=== PATIENT | female | born 1935 | race Caucasian/White ===

== ENCOUNTER 2016-12-01 09:02 | Emergency (ER) | payer BC ==
--- NOTE | 2016-12-01 09:21 | Emergency Department Record ---
History of Present Illness - General Chief complaint: Hypogylcemia Stated complaint: LOW BLOOD SUGAR Time Seen by Provider: 12/01/16 09:15 Source: Patient, RN notes reviewed Mode of Arrival: EMS - History of Present Illness Initial comments: patient found by daughter in bed confused and EMS called and her blood glucose was 44 and one amp of D50 given and glucose up to 170 and she was given peanut butter and juice. Patient using lantus 40 units at night and metformin and her new primary is Dr. Mckay. Onset/Timin -: Hour(s) Location: Generalized Improves with: Medication Worsens with: None Associated Symptoms: Confusion - [place] Coma Scale Eye Response: (4) Open spontaneously Motor Response: (6) Obeys commands Verbal Response: (5) Oriented [place] Total: 15 - Related Data Home Medications Medication Instructions Recorded Confirmed Last Taken Atorvastatin Calcium [Lipitor] 10 mg PO QHS 12/01/16 12/01/16 11/30/16 Insulin Glargine,Hum.rec.anlog 10 unit SQ QAM 12/01/16 12/01/16 Unknown [Lantus] Insulin Glargine,Hum.rec.anlog 40 unit SQ QHS 12/01/16 12/01/16 11/30/16 [Lantus] Lisinopril 10 mg PO DAILY 12/01/16 12/01/16 11/30/16 Metformin HCl 1,000 mg PO BID 12/01/16 12/01/16 11/30/16 Oxybutynin Chloride [Ditropan Xl] 10 mg PO DAILY 12/01/16 12/01/16 11/30/16 Allergies Allergy/AdvReac Type Severity Reaction Status Date / Time aspirin AdvReac nose bleed Verified 12/01/16 09:15 Travel Screening - Travel/Exposure Within Last 30 Days Have you traveled within the last 30 days?: No Review of Systems Reviewed: No additional complaints except as noted below Constitutional: Reports: As per HPI. Denies: Chills, Fever, Malaise, Night sweats, Weakness, Weight change Eyes: Reports: As per HPI. Denies: Eye discharge, Eye pain, Photophobia, Vision change ENT: Reports: As per HPI. Denies: Congestion, Dental pain, Ear pain, Epistaxis , Hearing loss, Throat pain Respiratory: Reports: As per HPI. Denies: Cough, Dyspnea, Hemoptysis, Stridor, Wheezes Cardiovascular: Reports: As per HPI. Denies: Arrhythmia, Chest pain, Dyspnea on exertion, Edema, Murmurs, Orthopnea, Palpitations, Paroxysmal nocturnal dyspnea, Rheumatic Fever, Syncope Endocrine: Reports: As per HPI. Denies: Fatigue, Heat or cold intolerance, Polydipsia, Polyuria Gastrointestinal: Reports: As per HPI. Denies: Abdominal pain, Constipation, Diarrhea, Hematemesis, Hematochezia, Melena, Nausea, Vomiting Genitourinary: Reports: As per HPI. Denies: Abnormal menses, Discharge, Dyspareunia, Dysuria, Frequency, Hematuria, Incontinence, Retention, Urgency Musculoskeletal: Reports: As per HPI. Denies: Arthralgia, Back pain, Gout, Joint swelling, Myalgia, Neck pain Skin: Reports: As per HPI. Denies: Bruising, Change in color, Change in hair/ nails, Lesions, Pruritus, Rash Neurological: Reports: As per HPI. Denies: Abnormal gait, Confusion, Headache, Numbness, Paresthesias, Seizure, Tingling, Tremors, Vertigo, Weakness Psychiatric: Reports: As per HPI. Denies: Anxiety, Auditory hallucinations, Depression, Homicidal thoughts, Suicidal thoughts, Visual hallucinations Hematological/Lymphatic: Reports: As per HPI. Denies: Anemia, Blood Clots, Easy bleeding, Easy bruising, Swollen glands Past Medical History - SOCIAL HISTORY Smoking Status: Never smoker Alcohol Use: None Drug Use: None - RESPIRATORY Hx Respiratory Disorders: No - CARDIOVASCULAR Hx Cardio Disorders: Yes Hx Hypertension: Yes Comment:: high cholesterol - NEURO Hx Neuro Disorders: No - GI Hx GI Disorders: No - Hx Genitourinary Disorders: No - ENDOCRINE Hx Endocrine Disorders: Yes Hx Diabetes: Yes - MUSCULOSKELETAL Hx Musculoskeletal Disorders: No - PSYCH Hx Psych Problems: No - HEMATOLOGY/ONCOLOGY Hx Hematology/Oncology Disorders: No Family Medical History Any Significant Family History?: No Physical Exam - General General Appearance: Alert, Oriented x3, Cooperative, No acute distress - Head Head exam: Normal inspection - Eye Eye exam: Normal appearance, PERRL Pupils: Normal accommodation - ENT ENT exam: Normal exam, Mucous membranes moist, Normal external ear exam, Normal orophraynx, TM's normal bilaterally Ear exam: Normal external inspection. negative: External canal tenderness Nasal Exam: Normal inspection. negative: Discharge, Sinus tenderness Mouth exam: Normal external inspection, Tongue normal Teeth exam: Normal inspection. negative: Dental caries Throat exam: Normal inspection. negative: Tonsillar erythema, Tonsillar exudate - Neck Neck exam: Normal inspection, Full ROM. negative: Tenderness - Respiratory Respiratory exam: Normal lung sounds bilaterally. negative: Respiratory distress - Cardiovascular Cardiovascular Exam: Regular rate, Normal rhythm, Normal heart sounds - GI/Abdominal GI/Abdominal exam: Soft, Normal bowel sounds. negative: Tenderness - Rectal Rectal exam: Deferred - exam: Deferred - Extremities Extremities exam: Normal inspection, Full ROM, Normal capillary refill. negative: Tenderness - Back Back exam: Reports: Normal inspection, Full ROM. Denies: Muscle spasm, Rash noted, Tenderness - Neurological Neurological exam: Alert, Normal gait, Oriented X3, Reflexes normal - Psychiatric Psychiatric exam: Normal affect, Normal mood - Skin Skin exam: Dry, Intact, Normal color, Warm Course Vital Signs 12/01/16 09:04 Temperature 97.6 F Pulse Rate 77 Respiratory 20 Rate Blood Pressure 153/81 Pulse Ox 99 breakfast tray given to patient. Medical Decision Making - Data Complexity MDM Data: Labs Ordered and/or Reviewed - Lab Data Result diagrams: 12/01/16 09:22 12/01/16 10:05 Disposition Clinical Impression: Hypoglycemia associated with diabetes Condition: (1) Good Instructions: Diabetic Hypoglycemia (ED) Additional Instructions: decrease lantus to 20 units at night check glucose four times a day before meals and bedtime follow up with Dr. Mckay and show her your numbers Forms: Patient Portal Access Time of Disposition: 10:49
[2016-12-01 10:27] LABS: ANION GAP 15.1 (7-16); BLOOD UREA NITROGEN 18 mg/dL (7-17); CARBON DIOXIDE 21.9 mmol/L (22-30); CREATININE 0.8 mg/dL (0.52-1.04); EST GLOMERULAR FILTRATION RATE > 60 ml/min; GLUCOSE,RANDOM 154 mg/dL (70-110)
== END 2016-12-01 11:08 | disposition home or self-care (01) ==
LOC: ER 09:02
DX: E11.649 Type 2 diabetes mellitus with hypoglycemia without coma (principal); R41.0 Disorientation, unspecified; I10 Essential (primary) hypertension; Z79.4 Long term (current) use of insulin
CPT/HCPCS: 36416; 80048; 82948; 99283

== ENCOUNTER 2018-08-05 20:51 | Inpatient (IN) | payer BC ==
--- NOTE | 2018-08-05 21:03 | Emergency Department Record ---
History of Present Illness - General Chief Complaint: Fall Injury Stated Complaint: FALL Time Seen by Provider: 08/05/18 20:56 Source: Patient, Family Mode of Arrival: Ambulatory Limitations: No limitations - History of Present Illness Initial Comments: 82 yo female presents after a fall about three hours ago. She lives with her daughter. The daughter witnessed the fall. The patient was getting up out of a chair and twisted her feet. She fell onto her right forearm. She has skin tears with bleeding. She is on Plavix and aspirin. She denies hitting her head. Her daughter witness the fall and states she did not hit her head. No recent changes in her baseline health. Her baseline is that she is somewhat frail and requires her daughter to participate in her care. 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 No new confusion, weakness, vomiting, chest pain or shortness of breath. PCP is [facility]. 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 Fall Witnessed: Yes, by family Place Fall Occurred: Home Loss of Consciousness: None Prolonged Down Time?: No Symptoms Prior to Fall: None Location - Extremities: Right: Forearm Severity: Moderate Quality: Aching Context: Other Associated Symptoms: Denies - [place] Coma Scale Eye Response: (4) Open spontaneously Motor Response: (6) Obeys commands Verbal Response: (5) Oriented [place] Total: 15 - Related Data Home Medications Medication Instructions Recorded Confirmed Last Taken Aspirin [Aspir-Low] 81 mg PO DAILY 08/05/18 08/05/18 Unknown Allergies Allergy/AdvReac Type Severity Reaction Status Date / Time aspirin AdvReac nose bleed Verified 08/05/18 21:39 Review of Systems Constitutional: Denies: Chills, Fever, Weakness Eyes: Denies: Eye discharge ENT: Denies: Congestion, Throat pain Respiratory: Denies: Cough, Dyspnea Cardiovascular: Denies: Chest pain, Syncope Endocrine: Denies: Fatigue Gastrointestinal: Denies: Abdominal pain, Diarrhea, Nausea, Vomiting Genitourinary: Denies: Dysuria Musculoskeletal: Reports: Myalgia. Denies: Arthralgia, Back pain Skin: Reports: Bruising Neurological: Denies: Abnormal gait, Headache, Numbness, Tingling, Tremors, Weakness Psychiatric: Denies: Anxiety Hematological/Lymphatic: Reports: Easy bruising. Denies: Easy bleeding Past Medical History - SOCIAL HISTORY Smoking Status: Never smoker Drug Use: None - RESPIRATORY Hx Respiratory Disorders: No - CARDIOVASCULAR Hx Cardio Disorders: Yes Hx Hypertension: Yes Comment:: high cholesterol - NEURO Hx Neuro Disorders: No - GI Hx GI Disorders: No - Hx Genitourinary Disorders: No - ENDOCRINE Hx Endocrine Disorders: Yes Hx Diabetes: Yes - MUSCULOSKELETAL Hx Musculoskeletal Disorders: No - PSYCH Hx Psych Problems: No - HEMATOLOGY/ONCOLOGY Hx Hematology/Oncology Disorders: No Physical Exam - General General Appearance: Alert, Oriented x3, Cooperative, No acute distress Limitations: No limitations - Head Head exam: negative: Atraumatic (scattered bruising of varied appearing age. No lacerations. No areas of clearly new injury vs old vs subacute.) Head exam detail: Other - Eye Eye exam: Normal appearance, PERRL. negative: Scleral icterus - ENT ENT exam: Normal exam, Mucous membranes moist, Normal orophraynx Ear exam: Normal external inspection Nasal Exam: Normal inspection Mouth exam: Normal external inspection - Neck Neck exam: Normal inspection, Full ROM. negative: Tenderness - Respiratory Respiratory exam: Normal lung sounds bilaterally. negative: Respiratory distress - Cardiovascular Cardiovascular Exam: Regular rate, Normal rhythm, Normal heart sounds Peripheral Pulses: 2+: Radial (R), Radial (L) - GI/Abdominal GI/Abdominal exam: Soft. negative: Tenderness - Rectal Rectal exam: Deferred - exam: Deferred - Extremities Extremities exam: Full ROM, Joint swelling, Normal capillary refill, Tenderness. negative: Normal inspection Image of Full Body: 1 - lenear skin tear, superficial, local swelling, old scattered bruising - Back Back exam: Denies: CVA tenderness (R), CVA tenderness (L) - Neurological Neurological exam: Alert. negative: Altered - Psychiatric Psychiatric exam: negative: Agitated, Anxious - Skin Skin exam: Abrasion, Other (skin tear) Course Vital Signs 08/05/18 20:55 Temperature 97.6 F Pulse Rate [ 100 H Pulse Ox Probe] Respiratory 24 Rate Blood Pressure 135/77 [Left Arm] Pulse Ox 100 - Reevaluation(s) Reevaluation #1: Vitals reviewed Given she is on Plavix Trauma Alert initiated The fall was witnessed. The daughter states no head involvement. Given she has scattered bruising of varied age a HCT was ordered. 08/05/18 21:03 The labs were reviewed The CBC demonstrates a Hgb of 8.0 with prior of 9.5 in January Her BUN and CR were 49 and 1.2 mildly increased from prior. 08/05/18 21:48 08/05/18 22:07 The wound on the arm was cleaned and dried The skin tear was re-approximated with steristrips The proximal skin tear was treated with a non stick dressing. 08/05/18 22:29 No acute bone injury on the right forearm XR HCT no acute injury or bleed. Atrophy and small lacunar infarcts noted CT Cervical spine. No fracture. Degenerative changes noted. On stablehand asymmetry of the lung on the right. Recommend CXR CXR ordered The patient and daughter notified. 08/05/18 23:00 The CXR was read as possible pneumonia on the right with diffuse infiltrate. Plan will be for admission, IVF antibiotics. 08/05/18 23:01 The chest is non tender, no signs of trauma EKG 2256 sinus tachycardia [address] normal [place] normal No acute ST changes 08/05/18 23:05 At the time of admission she is 100% on room air, she is not short of breath. I explained that she will be given antibiotics, recheck her Hgb in the AM and monitor. 08/05/18 23:11 The patient now states she has felt congested a few days. The daughter has not noticed any significant cough or shortness of breath. Medical Decision Making - Lab Data Result diagrams: 08/06/18 06:10 08/06/18 06:10 Disposition Disposition: Admit Clinical Impression: Renal insufficiency, Hyperglycemia, Pneumonia Anemia Qualifiers: Anemia type: unspecified type Qualified Code(s): D64.9 - Anemia, unspecified Disposition: Still a Patient at [facility] Decision to Admit: Admit from ER Decision to Admit Date: 08/05/18 Decision to Admit Time: 23:02 Condition: (2) Stable Time of Disposition: 23:02 Quality - Quality Measures Quality Measures: N/A - Blood Pressure Screening Does Patient Have Any of the Following: Active Dx of HTN Blood Pressure Classification: Normal BP Reading Systolic Measurement: 118 Diastolic Measurement: 55 Screening for High Blood Pressure: Patient Exclusion, Hx of HTN [[id number]]
[2018-08-05 21:16] LABS: HEMATOCRIT 26.4 % (35.0-47.0); MEAN CELL VOLUME 99.2 fl (81-97); MEAN CORPUSCULAR HGB CONC 30.3 g/dl (32-36); MEAN PLATELET VOLUME 9.8 fl (7.4-10.4); PLATELET COUNT 303 K/uL (130-400); RED BLOOD COUNT 2.66 M/uL (3.80-5.40); RED CELL DISTRIBUTION WIDTH 14.3 % (11.5-14.5); WHITE BLOOD COUNT W/O DIFF 7.6 K/uL (4.2-12.2)
[2018-08-05 21:28] LABS: BILIRUBIN,TOTAL 0.3 mg/dL (0.2-1.0); CREATININE 1.2 mg/dL (0.5-0.9)
[2018-08-05 21:29] LABS: TOTAL PROTEIN 7.9 g/dL (6.6-8.7)
[2018-08-05 21:30] LABS: INR 1.1; PARTIAL THROMBOPLASTIN TIME 26.9 SECONDS (24.5-39.1); PROTHROMBIN TIME (PATIENT) 10.8 SECONDS (9.5-12.1)
[2018-08-05 21:31] LABS: ALCOHOL 0.01 g/dL (0-0.010)
[2018-08-05 21:34] LABS: ALBUMIN 3.9 g/dL (4.0-5.0)
[2018-08-05 21:40] LABS: ANISOCYTOSIS 1+; PLATELET ESTIMATE NORMAL (NORMAL)
[2018-08-05] MEDS ORDERED: AZITHROMYCIN 500 MG TABLET PO ONE (23:00)
[2018-08-05] MEDS ORDERED: CEFTRIAXONE SODIUM 1 GM in 0.9 % SODIUM CHLORIDE 100ML 100 ML IVPB ONE (23:00)
[2018-08-06] MEDS ORDERED: 0.9 % SODIUM CHLORIDE 1000ML 1,000 ML IV PRN (01:15)
[2018-08-06] MEDS: LISINOPRIL 20 MG TABLET PO SCH (01:58)
[2018-08-06] MEDS: MULTIVITAMINS/MINERALS TABLET PO SCH (01:58)
[2018-08-06 06:25] LABS: HEMATOCRIT 23.4 % (35.0-47.0); MEAN CELL VOLUME 99.2 fl (81-97); MEAN CORPUSCULAR HGB CONC 29.9 g/dl (32-36); MEAN PLATELET VOLUME 9.8 fl (7.4-10.4); PLATELET COUNT 267 K/uL (130-400); RED BLOOD COUNT 2.36 M/uL (3.80-5.40); RED CELL DISTRIBUTION WIDTH 14.5 % (11.5-14.5); WHITE BLOOD COUNT W/O DIFF 5.2 K/uL (4.2-12.2)
[2018-08-06 06:29] LABS: MEAN CORPUSCULAR HEMOGLOBIN 29.6 pg (27-33)
[2018-08-06 06:43] LABS: ALBUMIN 3.3 g/dL (4.0-5.0); BILIRUBIN,TOTAL 0.3 mg/dL (0.2-1.0); TOTAL PROTEIN 6.7 g/dL (6.6-8.7)
[2018-08-06 07:03] LABS: HYPOCHROMIA 2+; PLATELET ESTIMATE n (NORMAL)
[2018-08-06 07:21] LABS: ABO GROUP B; ANTIBODY SCREEN NEGATIVE (NEGATIVE); RH TYPE POSITIVE
--- NOTE | 2018-08-06 09:00 | History & Physical ---
History of Present Illness - Date of Service Date of Service for History & Physical: 08/06/18 - History of Present Illness Admitting Diagnosis: Pneumonia, anemia, renal insufficency, diabetes, skin tear History of Present Illness: Mrs. Peck is a 82 y/o female who presents after having a witnessed fall yesterday while at her daughter's home. She says that she was getting up from her wheelchair and it tipped over causing her to fall forward. Her daughter states that she twisted her ankle and did not hit her head when she fell. She says that she felt a little unsteady but doses not describe any dizziness, changes in vision or headaches. The patient is in her wheelchair for most of the day but does ambulate with a walker. She recently had home nursing careand physical therapy but this ended recently. Her daughter assists her with her ADLs /IADL. On arrival to the ED the patient was noted to have multiple contusions and superficial lacerations of both arms but no other acute physical findings. Initial diagnostic findings as per below which notes anemia and right middle lung lobe infiltrate. Vitals on admission: BP: 146/65 HR: 120 RR: 20 T: 97.7 Sats: 100% RA CT of the spine: no fracture, multilevel DJD CT head w/o contrast: no acute intracranial findings, old lacunar infarcts. Chest xray: diffuse infiltrate of right lungs. Left forearm xray: no fracture, advanced Osteoporosis. Travel Screening - Travel/Exposure Within Last 30 Days Have you traveled within the last 30 days?: No - Travel/Exposure Within Last Year Have you traveled outside the [place] in the last year?: No - Additonal Travel Details Have you been exposed to anyone with a communicable illness?: No - Travel Symptoms Symptom Screening: None Review of Systems Constitutional: Denies: Chills, Fever, Weakness Eyes: Denies: Eye discharge ENT: Denies: Congestion, Throat pain Respiratory: Denies: Cough, Dyspnea Cardiovascular: Denies: Chest pain, Syncope Endocrine: Denies: Fatigue Gastrointestinal: Denies: Abdominal pain, Diarrhea, Nausea, Vomiting Genitourinary: Denies: Dysuria Musculoskeletal: Reports: Myalgia. Denies: Arthralgia, Back pain Skin: Reports: Bruising Neurological: Denies: Abnormal gait, Headache, Numbness, Tingling, Tremors, Weakness Psychiatric: Denies: Anxiety Hematological/Lymphatic: Reports: Easy bruising. Denies: Easy bleeding Past Medical History - SOCIAL HISTORY Smoking Status: Never smoker Alcohol Use: None Drug Use: None - RESPIRATORY Hx Respiratory Disorders: No - CARDIOVASCULAR Hx Cardio Disorders: Yes Hx Hypertension: Yes Comment:: high cholesterol - NEURO Hx Neuro Disorders: No Hx TIA: Yes - GI Hx GI Disorders: No - Hx Genitourinary Disorders: No - ENDOCRINE Hx Endocrine Disorders: Yes Hx Diabetes: Yes - MUSCULOSKELETAL Hx Musculoskeletal Disorders: No - PSYCH Hx Psych Problems: No - HEMATOLOGY/ONCOLOGY Hx Hematology/Oncology Disorders: No Hx Anemia: Yes Hx Cancer: Yes (skin) Hx Chemotherapy: No Hx Radiation Therapy: No Family Medical History Any Significant Family History?: Yes Hx Cancer: Brother/Sister Hx Heart Disease: Father, Mother H&P Meds/Allergies - Allergies Allergies: Allergies Allergy/AdvReac Type Severity Reaction Status Date / Time aspirin AdvReac nose bleed Verified 08/05/18 21:39 - Home Medications Home Medications Medication Instructions Recorded Confirmed Last Taken Aspirin [Aspir-Low] 81 mg PO DAILY 08/05/18 08/05/18 Unknown - Active Medications Active Medications: Current Medications Amlodipine Besylate (Norvasc) 5 mg PO DAILY [facility] Azithromycin (Zithromax) 500 mg PO QHS [facility] Sodium Chloride () 1,000 mls @ 75 mls/hr IV .[id number] PRN PRN Reason: LARGE VOLUME IV Last Admin: 08/06/18 01:16 Dose: 75 mls/hr Ceftriaxone Sodium 1 gm/ (Sodium Chloride) 100 mls @ 100 mls/hr IVPB Q24H [facility] Stop: 08/11/18 22:01 Insulin Detemir (Levemir Flextouch) 21 unit SQ BID [facility] Lisinopril (Zestril) 20 mg PO QD [facility] Last Admin: 08/06/18 01:58 Dose: 20 mg Metformin HCl (Glucophage Ir) 500 mg PO BID [facility] Multivitamins/Minerals (Centrum) 1 tab PO QD [facility] Last Admin: 08/06/18 01:58 Dose: 1 tab Non-Formulary Medication (Vitamin B Complex Vit C No.4 [Super B Complex]) 150 mg PO DAILY [facility] Simvastatin (Zocor) 20 mg PO QHS [facility] Physical Exam - Vital Signs Vital Signs: Vital Signs - Last 24 Hrs Temp Pulse Pulse Resp BP Pulse Ox 08/06/18 08:44 99.7 F H 91 H 18 118/55 95 08/06/18 00:00 97.7 F 117 H 16 148/75 100 08/05/18 23:44 120 H 20 146/65 100 08/05/18 22:53 122 H 20 147/78 100 08/05/18 21:49 90 20 134/69 100 08/05/18 20:55 97.6 F 100 H 24 135/77 100 - General General Appearance: Alert, Oriented x3, Cooperative, No acute distress Limitations: No limitations - Head Head exam: negative: Atraumatic (scattered bruising of varied appearing age. No lacerations. No areas of clearly new injury vs old vs subacute.) Head exam detail: Other - Eye Eye exam: Normal appearance, PERRL. negative: Scleral icterus - ENT ENT exam: Normal exam, Mucous membranes moist, Normal orophraynx Ear exam: Normal external inspection Nasal Exam: Normal inspection Mouth exam: Normal external inspection - Neck Neck exam: Normal inspection, Full ROM. negative: Tenderness - Respiratory Respiratory exam: Normal lung sounds bilaterally. negative: Respiratory distress - Cardiovascular Cardiovascular Exam: Regular rate, Normal rhythm, Normal heart sounds Peripheral Pulses: 1+: Dorsalis Pedis (R), Dorsalis Pedis (L), 2+: Radial (R), Radial (L) - GI/Abdominal GI/Abdominal exam: Soft. negative: Tenderness - Rectal Rectal exam: Deferred - exam: Deferred - Extremities Extremities exam: Full ROM, Joint swelling, Normal capillary refill, Pedal edema (+2 bilaterally), Tenderness. negative: Normal inspection - Back Back exam: Denies: CVA tenderness (R), CVA tenderness (L) - Neurological Neurological exam: Alert. negative: Altered - Psychiatric Psychiatric exam: negative: Agitated, Anxious - Skin Skin exam: Abrasion, Other (superficial lacertation of right upper upper extremity, multiple small hematomas on hands and back. ) Results - Labs Result Diagrams: 08/06/18 06:10 08/06/18 06:10 Labs Last 24 Hours: Laboratory Results - last 24 hr 08/05/18 08/05/18 08/05/18 21:07 21:07 21:07 WBC 7.6 RBC 2.66 L Hgb 8.0 L Hct 26.4 L MCV 99.2 H MCH 30.0 MCHC 30.3 L RDW 14.3 Plt Count 303 MPV 9.8 Neutrophils % 67.0 Band Neutrophils % 4.0 Eosinophils % Not Reportable Basophils % Not Reportable Lymphocytes 21.0 Monocytes 3.0 Metamyelocytes 2.0 Myelocytes 1.0 Platelet Estimate Normal Hypochromasia Anisocytosis 1+ Eosinophil Count 2.0 PT 10.8 INR 1.1 APTT 26.9 Sodium 143 Potassium 5.1 H Chloride 104 Carbon Dioxide 24.0 Anion Gap 15.0 BUN 49 H Creatinine 1.2 H Estimated GFR 46 POC Glucose Random Glucose 295 H Calcium 9.8 Total Bilirubin 0.30 AST 21 ALT 14 Alkaline Phosphatase 84 Total Protein 7.9 Albumin 3.9 L Globulin 4.0 Albumin/Globulin Ratio 1.0 L Ethyl Alcohol 0.010 ABO Group Rh Factor Antibody Screen 08/06/18 08/06/18 08/06/18 06:10 06:10 06:10 WBC 5.2 RBC 2.36 L Hgb 7.0 L Hct 23.4 L MCV 99.2 H MCH 29.6 MCHC 29.9 L RDW 14.5 Plt Count 267 MPV 9.8 Neutrophils % 66.0 Band Neutrophils % 5.0 Eosinophils % Not Reportable Basophils % Not Reportable Lymphocytes 22.0 Monocytes 4.0 Metamyelocytes 2.0 Myelocytes Platelet Estimate n Hypochromasia 2+ Anisocytosis Eosinophil Count 1.0 PT INR APTT Sodium 143 Potassium 5.0 H Chloride 107 Carbon Dioxide 25.0 Anion Gap 11.0 BUN 45 H Creatinine 1.0 H Estimated GFR 56 POC Glucose Random Glucose 189 H Calcium 9.3 Total Bilirubin 0.30 AST 18 ALT 12 Alkaline Phosphatase 68 Total Protein 6.7 Albumin 3.3 L Globulin 3.4 Albumin/Globulin Ratio 1.0 L Ethyl Alcohol ABO Group B Rh Factor Positive Antibody Screen Negative 08/06/18 07:30 WBC RBC Hgb Hct MCV MCH MCHC RDW Plt Count MPV Neutrophils % Band Neutrophils % Eosinophils % Basophils % Lymphocytes Monocytes Metamyelocytes Myelocytes Platelet Estimate Hypochromasia Anisocytosis Eosinophil Count PT INR APTT Sodium Potassium Chloride Carbon Dioxide Anion Gap BUN Creatinine Estimated GFR POC Glucose 184 H Random Glucose Calcium Total Bilirubin AST ALT Alkaline Phosphatase Total Protein Albumin Globulin Albumin/Globulin Ratio Ethyl Alcohol ABO Group Rh Factor Antibody Screen VTE H&P Assessment - Risk for VTE Risk for VTE: Yes Risk Level: High Risk Assessment Date: 08/06/18 Risk Assessment Time: 09:05 VTE Orders Placed or Will Be Placed: Yes Plan - Inpatient Certification Inpatient Certification: Admit to inpatient care: Based on my medical assessment, after consideration of patient's risk factors (age, co-morbidities and patient presenting symptoms and acuity), I expect that this patient will remain in the hospital greater than or equal to two midnights and that the services needed warrant inpatient care because: Patient Risk Factors:Fall Estimated length of stay: 3 days The patient may reasonably be expected to be discharged or transferred to a hospital within 96 hours after admission to [facility]. Services needed: PT/OT Post hospital care (if known): Home care I certify that my determination is in accordance with my understanding of Medicare requirements for reasonable and necessary inpatient services. 08/06/18 08:52 - Detailed Diagnosis and Plan (1) Fall at home Current Visit: Yes Status: Acute Base Code: W19.XXXA - UNSPECIFIED FALL, INITIAL ENCOUNTER; Y92.009 - UNSP PLACE IN [facility] Comment: 08/06/18: - witnessed mechanical fall while at home. - CT head w/o contrast: negative for acute injury - CT spine: no fracture, multilevel DJD. - Right forearm xray: no fracture, osteoporosis. - PT/OT consult ordered. - Fall precautions w/ bed alaram and anti-slip socks. - Hold antiplatelet medications. (2) Community acquired pneumonia Current Visit: Yes Status: Acute Base Code: J18.9 - PNEUMONIA, UNSPECIFIED ORGANISM Comment: 08/06/18: - no symptoms of fever, chills, cough or shortness of breath. - Chest xray: diffuse infiltrate on the right, elevation of the hemidiaphragm. - Rocpehin 1gm IV Q24H, Azithromycin 500mg Q24H PO. - repeat morning labs. (3) Acute on chronic anemia Current Visit: Yes Status: Acute Base Code: D64.9 - ANEMIA, UNSPECIFIED Comment: 08/06/18: - baseline 9, hgb on admission 8, repeat is 7 gm/dL. - no active bleeding noted and no report of melanotic stools so likely hemodilution since being on fluids. - check H+H with morning labs. Hold dual antiplatet meds. (4) HTN (hypertension) Current Visit: Yes Status: Acute Base Code: I10 - ESSENTIAL (PRIMARY) HYPERTENSION Comment: 08/06/18: - resume Amlodipine 5mg and Lisinopril 20mg. (5) Diabetes mellitus, type II Current Visit: Yes Status: Acute Base Code: E11.9 - TYPE 2 DIABETES MELLITUS WITHOUT COMPLICATIONS Comment: 08/06/18: - Levemir 21 units BID, Metformin 500mg BID - Goal to keep CBG < 180 - Accuchecks AcHs, ADA diet. (6) Infarction of left basal ganglia Current Visit: Yes Status: Resolved Base Code: I63.9 - CEREBRAL INFARCTION, UNSPECIFIED Comment: 08/06/18: - Hx of left basal ganglia infarct. - On dual antiplatlet therapy with ASA/Plavix, and Simvastatin 20mg. - CT head w/o contrast: negative for any new acute findings. - Meds to be held due to low Hgb. (7) DVT prophylaxis Current Visit: Yes Status: Acute Base Code: [id number] - Comment: 08/06/18: - hold anticoagulation and antiplatelet medications due to fall risk and unresolved anemia. (8) Full code status Current Visit: Yes Status: Acute Base Code: Z78.9 - OTHER SPECIFIED HEALTH STATUS Comment: 08/06/18: - The patient is full code.
[2018-08-06] MEDS: AMLODIPINE BESYLATE 5MG TAB PO SCH (09:31)
[2018-08-06] MEDS: METFORMIN 500 MG TABLET PO SCH ×2 (09:31→21:45)
[2018-08-06] MEDS: LEVEMIR FLEXTOUCH 100 UNIT/ML INSULIN PEN SQ SCH ×2 (09:32→21:55)
[2018-08-06] MEDS ORDERED: VITAMIN B COMPLEX VIT C NO 4 150 MG PO SCH (10:00)
[2018-08-06] MEDS ORDERED: SIMVASTATIN 20 MG TABLET PO SCH (22:00)
[2018-08-06] MEDS ORDERED: CEFTRIAXONE SODIUM 1 GM in 0.9 % SODIUM CHLORIDE 100ML 100 ML IVPB SCH (22:00)
[2018-08-06] MEDS ORDERED: AZITHROMYCIN 500 MG TABLET PO SCH (22:00)
[2018-08-06] MEDS ORDERED: NOVOLOG FLEXPEN (INSULIN ASPART) 100 UNITS/ML SQ ONE (23:28)
[2018-08-07] MEDS: LISINOPRIL 20 MG TABLET PO SCH (03:27)
[2018-08-07] MEDS: MULTIVITAMINS/MINERALS TABLET PO SCH (03:28)
[2018-08-07 06:35] LABS: HEMATOCRIT 23.5 % (35.0-47.0); HEMOGLOBIN 7.1 gm/dl (11.6-16.0); MEAN CORPUSCULAR HEMOGLOBIN 30.2 pg (27-33); MEAN CORPUSCULAR HGB CONC 30.2 g/dl (32-36); MEAN PLATELET VOLUME 9.9 fl (7.4-10.4); PLATELET COUNT 292 K/uL (130-400); RED BLOOD COUNT 2.35 M/uL (3.80-5.40); RED CELL DISTRIBUTION WIDTH 14.7 % (11.5-14.5); WHITE BLOOD COUNT W/O DIFF 6.1 K/uL (4.2-12.2)
[2018-08-07 06:50] LABS: CREATININE 1.4 mg/dL (0.5-0.9)
[2018-08-07 07:07] LABS: ANISOCYTOSIS 1+; PLATELET ESTIMATE NORMAL (NORMAL)
--- NOTE | 2018-08-07 07:22 | RADIOLOGY REPORT ---
EXAM: RIGHT FOREARM HISTORY: PATIENT FELL AND SKINNED FOREARM. TECHNIQUE: AP and lateral views of the right forearm were obtained. Comparison: No prior right forearm series, but comparison is made with the visualized distal forearm on a prior right hand series of 03/25/12. Encounter: Initial. FINDINGS: There is diffuse fairly advanced appearing osteopenia likely representing advanced osteoporosis. This does appear to have progressed when compared to the degree of osteopenia evident on the 03/25/12 hand x-ray. There is probably some mild soft tissue swelling in the forearm. Negative ulnar variance at the wrist again noted, however, no definite fracture right forearm identified. IMPRESSION: 1. DIFFUSE OSTEOPOROSIS. 2. FOCAL SOFT TISSUE SWELLING PARTICULARLY POSTERIORLY ALONG THE MID PORTION OF THE FOREARM. 3. NO DEFINITE FRACTURE OF THE RIGHT FOREARM IDENTIFIED. JOB NUMBER: [id number] [facility]
--- NOTE | 2018-08-07 07:29 | CT SCAN REPORT ---
EXAM: EMERGENCY HEAD CT WITHOUT CONTRAST HISTORY: PATIENT FELL, ON BLOOD THINNERS. TECHNIQUE: Axial CT scan of the head was performed without IV contrast. Comparison: Head CT 05/14/11. FINDINGS: No definite acute intracranial hemorrhage identified. No focal mass effect or midline shift evident. Moderate generalized atrophy is present with chronic appearing deep white matter changes, nonspecific, but likely representing some chronic small vessel deep white matter ischemic disease. There are probably small chronic lacunar infarcts in the region of the left thalamus, lentiform nucleus of the left basal ganglia, and deep white matter of the left parietal lobe. No definite acute infarct or intracranial mass lesion is seen. No depressed calvarial fracture evident. On the scanogram, note is made of marked asymmetry in the hemithoraces with the right appearing diffusely somewhat opacified compared to the left. This could be related to a large right pleural effusion in the supine position scanogram or extensive infiltrate on the right, or a combination of both. Follow-up upright PA and lateral chest x-ray is suggested. IMPRESSION: 1. NO DEFINITE ACUTE INTRACRANIAL HEMORRHAGE OR FOCAL MASS EFFECT IDENTIFIED. 2. GENERALIZED ATROPHY WITH CHRONIC APPEARING DEEP WHITE MATTER CHANGES AND PROBABLY A FEW TINY CHRONIC LACUNAR INFARCTS ON THE LEFT. 3. ABNORMAL APPEARANCE OF THE RIGHT HEMITHORAX ON THE SCANOGRAM DESCRIBED ABOVE AND FOLLOW-UP UPRIGHT PA AND LATERAL CHEST X-RAY IS SUGGESTED. JOB NUMBER: [id number] [facility]
--- NOTE | 2018-08-07 07:36 | CT SCAN REPORT ---
EXAM: EMERGENCY CT SCAN OF THE CERVICAL SPINE HISTORY: PATIENT FELL, ON BLOOD THINNERS. TECHNIQUE: Axial CT scan of the entire cervical spine was performed without IV contrast. Comparison: No prior cervical study with which to compare. Encounter: Initial. FINDINGS: No apical pneumothorax evident, however, particularly on the scanogram there appears to be diffuse abnormal increased density in the right hemithorax compared to the left. This was noted on the scanogram from the head CT as well. This could represent a large right pleural effusion layering out over the right hemithorax in the supine position scanogram, or could represent diffuse infiltrate, or a combination of both. Follow-up upright PA and lateral chest x-ray is suggested for initial further evaluation. No definite fracture of the cervical spine identified. No prevertebral soft tissue swelling is seen. There is narrowing of the fourth through the sixth cervical interspaces with associated hypertrophic spurring. Multilevel facet joint arthropathy is seen as well. Some calcification of the transverse atlantal ligament is seen. There is central stenosis particularly at the C4-C5 and C5-C6 interspaces with multilevel foraminal stenosis particularly on the left as well. IMPRESSION: 1. NO DEFINITE ACUTE FRACTURE OR PREVERTEBRAL SOFT TISSUE SWELLING SEEN IN THE CERVICAL SPINE. 2. MULTILEVEL DEGENERATIVE CHANGE IN THE CERVICAL SPINE DETAILED ABOVE. 3. ABNORMAL APPEARANCE OF THE RIGHT HEMITHORAX DESCRIBED ABOVE AND FOLLOW- UP UPRIGHT PA AND LATERAL CHEST X-RAY IS SUGGESTED. JOB NUMBER: [id number] [facility]
--- NOTE | 2018-08-07 07:42 | RADIOLOGY REPORT ---
EXAM: CHEST, TWO VIEWS HISTORY: RIGHT LUNG ABNORMALITY ON CERVICAL CT SCANOGRAM, CHEST X-RAY REQUESTED FOR FURTHER EVALUATION. TECHNIQUE: AP and lateral views of the chest were obtained. Comparison: No prior chest x-ray with which to compare. FINDINGS: There is diffuse infiltrate in the right lung along with elevation of the right hemidiaphragm. There are no prior films to compare, but presumably the infiltrate on the right is acute and may represent extensive pneumonitis on the right. Diffuse alveolar hemorrhage could give a similar appearance as could pulmonary edema, but these etiologies are more commonly bilateral. The heart size is probably within normal limits allowing for the AP positioning. No definite pleural effusion or pneumothorax evident. Thoracic curve to the right. IMPRESSION: 1. FAIRLY EXTENSIVE INFILTRATE ON THE RIGHT PRESUMABLY REPRESENTING PNEUMONITIS. COMPARISON WITH OLD FILMS WOULD BE USEFUL AND FOLLOW-UP FILMS ARE ALSO SUGGESTED TO DEMONSTRATE CLEARING. 2. ELEVATION OF THE RIGHT HEMIDIAPHRAGM. 3. THORACIC DEXTROSCOLIOSIS. JOB [facility]BER: [id number] [facility]
[2018-08-07] MEDS ORDERED: NOVOLOG FLEXPEN (INSULIN ASPART) 100 UNITS/ML SQ SCH (07:45)
[2018-08-07] MEDS: AMLODIPINE BESYLATE 5MG TAB PO SCH (09:21)
[2018-08-07] MEDS: LEVEMIR FLEXTOUCH 100 UNIT/ML INSULIN PEN SQ SCH (09:21)
[2018-08-07] MEDS: METFORMIN 500 MG TABLET PO SCH (09:21)
--- NOTE | 2018-08-07 09:35 | Rehab Evaluation ---
Patient Information - Patient Information Diagnosis: pneumonia, anemia Ordered Treatment: PT Evaluate and Treat Status: Initial Evaluation History: Detail (The patient arrived in ED on 08/05 after a fall out of her wheelchair which her daughter witnessed. The patient was transferrred to the inpatient unit.) Past Medical/Surgical Hx: PAST MEDICAL/SURGICAL HISTORY Past Surgical History skin on face for skin cancer PMH - Respiratory Hx Respiratory Disorders No PMH - Cardiovascular Hx Cardiovascular Disorders Yes Hx Hypertension Yes Hx Transient Ischemic Attacks Yes (TIA) Comment: high cholesterol PMH - Neuro Hx Neurological Disorders No Hx Transient Ischemic Attacks Yes (TIA) PMH - GI Hx Gastrointestinal Disorders No PMH - Hx Genitourinary Disorders No PMH - Endocrine Hx Endocrine Disorders Yes Hx Diabetes Yes PMH - Musculoskeletal Hx Musculoskeletal Disorders No PMH - Psych Hx Psychiatric Problems No PMH - Hematology/Oncology Hx Hematology/Oncology No Disorders Hx Anemia Yes Hx Cancer Yes: skin Hx Chemotherapy No Hx Radiation Therapy No Premorbid Status: Detail (The patient prior to admission was ambulating household distances with front wheeled walker and also using a wheelchair with mobility.) Social History: Detail (The patient lives with daughter in a one story home with 5 steps at the enterance with 2 handrailings. The bathroom is equipped with a walk in shower with a shower seat with a transfer bench and a toilet with handles. The patient reports she independent with showering with set up of daughter and is able to dress independently. The patient reports she assists with meal preparation. 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.) Precautions: [place], Fall - Time With Patient Total Time Spent With Patient (Min): 30 Treatment Procedures: Detail (Initial Evaluation) Subjective Information - Subjective Information Per Patient (The patient had some complaints of soreness in R UE.) Objective Data - Mental Status Patient Orientation: Oriented x3 - Visual Perception Appears within normal limits for therapeutic activities - ROM Within normal limits (The patient's UE and LE strength are within functional limits.) - Strength/Tone Not within normal limits (The patients R UE strength was generally 4 to 4-/5 with grasp 3+/5 L UE strength was 4 to 4+/5. The patient's L LE strength was 4- /5 in hip musculature, 4/5 in knee extensors, knee flexors 4-/5, ankle musculature 4/5, R LE strength was 4 to 4+/5 throughout.) - Coordination Deficit (Decreased TESRING's R LE wtih alternate knee flexion/extension. UE TSERING's were not tested.) - Bed Mobility Needs Assist (Not assessed the patient reports her bed at home has railings which she uses.) - Transfers Needs Assist (minimal PA of 1 for sit to stand and CG for stand to sit.) - Balance Balance Sitting: Good Balance Standing: Poor (The patient stands with a wide base of support and demonstrates increased postural sway with perturbations in all directions. LOB was noted with posterior perturbation.) - Gait Detail (The patient ambulated with front wheeled walker a distance of 40 feet with CG due to unsteadiness with gait pattern. The patient exhibited shortness of breath after ambulating.) Therapy Assessment - Therapy Assessment Detail (The patient exhibits R UE and LE weakness, decreased balance in standing and shortness of breath with ambulation. Due to stable condition PT evaluation is rated as low complexity. Feel the patient would benefit from PT as inpatient to improve functional level and ongoing PT once discharged from [facility].) Problem List - Problem List Physical Therapy Problem List: Detail (1) Decreased balance in standing 2) R LE and UE weakness 3) shortness of breath with ambulation 4) Assistance with transfers and ambulation) Goals - Goals Physical Therapy Goals: 1) The patient will acheive sit to and from stand transfer independently. 2) Assess bed mobility. 3) The patient will ambulate with front wheeled walker 50 - 75 feet with supervision for safety and no shortness of breath. 4) The patient will stand without support using a wide base of support with no postural sway. Prognosis - Prognosis Good Plan - Plan Physical Therapy Plan: PT daily M-F for gait training, balance exercises, transfer training and UE and LE strengthening exercises.
--- NOTE | 2018-08-07 09:53 | Discharge Summary ---
Providers Discharge Summary Date: 08/07/18 Date of admission: 08/05/18 23:45 Attending physician: AMBER ENRIQUEZ Primary care physician: AMBER ENRIQUEZ Physical Exam - Vital Signs Vital Signs: Vital Signs - Last 24 Hrs Temp Pulse Pulse Resp BP Pulse Ox 08/07/18 00:00 98.7 F 94 H 16 137/58 98 08/06/18 21:00 93 H 94 H 18 08/06/18 17:00 98.7 F 94 H 18 122/63 96 - General General Appearance: Alert, Oriented x3, Cooperative, No acute distress Limitations: No limitations - Head Head exam: negative: Atraumatic (scattered bruising of varied appearing age. No lacerations. No areas of clearly new injury vs old vs subacute.) Head exam detail: Other - Eye Eye exam: Normal appearance, PERRL. negative: Scleral icterus - ENT ENT exam: Normal exam, Mucous membranes moist, Normal orophraynx Ear exam: Normal external inspection Nasal Exam: Normal inspection Mouth exam: Normal external inspection - Neck Neck exam: Normal inspection, Full ROM. negative: Tenderness - Respiratory Respiratory exam: Normal lung sounds bilaterally. negative: Respiratory distress - Cardiovascular Cardiovascular Exam: Regular rate, Normal rhythm, Normal heart sounds Peripheral Pulses: 1+: Dorsalis Pedis (R), Dorsalis Pedis (L), 2+: Radial (R), Radial (L) - GI/Abdominal GI/Abdominal exam: Soft. negative: Tenderness - Rectal Rectal exam: Deferred - exam: Deferred - Extremities Extremities exam: Full ROM, Joint swelling, Normal capillary refill, Tenderness. negative: Normal inspection - Back Back exam: Denies: CVA tenderness (R), CVA tenderness (L) - Neurological Neurological exam: Alert. negative: Altered - Psychiatric Psychiatric exam: negative: Agitated, Anxious - Skin Skin exam: Abrasion, Other (skin tear) Hospitalization - Hospitalization Admission Diagnosis: Pneumonia, anemia, renal insufficency, diabetes, skin tear - Problem List/Discharge Diagnosis (1) Fall at home Current Visit: Yes Status: Acute Base Code: W19.XXXA - UNSPECIFIED FALL, INITIAL ENCOUNTER; Y92.009 - UNSP PLACE IN [facility] Comment: 08/07/18: - witnessed mechanical fall while at home. - CT head w/o contrast: negative for acute injury - CT spine: no fracture, multilevel DJD. - Right forearm xray: no fracture, osteoporosis. - PT/OT consult ordered. - Fall precautions w/ bed alaram and anti-slip socks. - Hold antiplatelet medications. (2) Community acquired pneumonia Current Visit: Yes Status: Acute Base Code: J18.9 - PNEUMONIA, UNSPECIFIED ORGANISM Comment: 08/07/18: - no symptoms of fever, chills, cough or shortness of breath. - Chest xray: diffuse infiltrate on the right, elevation of the hemidiaphragm. - Rocpehin 1gm IV dc/d and changed to Cefdinir 300mg Q24H, Azithromycin 500mg Q24H PO. (3) Acute on chronic anemia Current Visit: Yes Status: Acute Base Code: D64.9 - ANEMIA, UNSPECIFIED Comment: 08/07/18: - baseline 9, hgb on admission 8, repeat is 7 gm/dL. -->stable at 7.1 - no active bleeding noted and no report of melanotic stools so likely hemodilution since being on fluids. - check H+H with morning labs. Hold dual antiplatet meds. (4) HTN (hypertension) Current Visit: Yes Status: Acute Base Code: I10 - ESSENTIAL (PRIMARY) HYPERTENSION Comment: 08/07/18: - resume Amlodipine 5mg and Lisinopril 20mg. (5) Diabetes mellitus, type II Current Visit: Yes Status: Acute Base Code: E11.9 - TYPE 2 DIABETES MELLITUS WITHOUT COMPLICATIONS Comment: 08/07/18: - Levemir 21 units BID, Metformin 500mg BID, hyperglycemia overnight with accuchecks > 400, patient put on sliding scale insulin and received 12 units of Novolog. Accucheck this morning 92. - Goal to keep CBG < 180 - Accuchecks AcHs, ADA diet. (6) Infarction of left basal ganglia Current Visit: Yes Status: Resolved Base Code: I63.9 - CEREBRAL INFARCTION, UNSPECIFIED Comment: 08/07/18: - Hx of left basal ganglia infarct. - On dual antiplatlet therapy with ASA/Plavix, and Simvastatin 20mg. - CT head w/o contrast: negative for any new acute findings. - Resume dual antiplatelet therapy. (7) DVT prophylaxis Current Visit: Yes Status: Acute Base Code: [id number] - Comment: 08/06/18: - hold anticoagulation and antiplatelet medications due to fall risk and unresolved anemia. (8) Full code status Current Visit: Yes Status: Acute Base Code: Z78.9 - OTHER SPECIFIED HEALTH STATUS Comment: 08/07/18: - The patient is full code. - Hospitalization Course Disposition: Home, Self-Care Hospital Course: Mrs. Peck is a 82 y/o female who presents after having a witnessed fall yesterday while at her daughter's home. She says that she was getting up from her wheelchair and it tipped over causing her to fall forward. Her daughter states that she twisted her ankle and did not hit her head when she fell. She says that she felt a little unsteady but doses not describe any dizziness, changes in vision or headaches. The patient is in her wheelchair for most of the day but does ambulate with a walker. She recently had home nursing careand physical therapy but this ended recently. Her daughter assists her with her ADLs /IADL. On arrival to the ED the patient was noted to have multiple contusions and superficial lacerations of both arms but no other acute physical findings. Initial diagnostic findings as per below which notes anemia and right middle lung lobe infiltrate. Vitals on admission: BP: 146/65 HR: 120 RR: 20 T: 97.7 Sats: 100% RA CT of the spine: no fracture, multilevel DJD CT head w/o contrast: no acute intracranial findings, old lacunar infarcts. Chest xray: diffuse infiltrate of right lungs. Left forearm xray: no fracture, advanced Osteoporosis. 08/07/18: The patient is sitting in the bedside chair and is doing well without complaint. Labs this morning do not show any significant change from previous labs. Procedures: Imaging and X-Rays 08/05/18 20:56 CERVICAL SPINE WO CONTRAST [CT] Stat FOREARM, RIGHT [RAD] Stat HEAD WO CONTRAST [CT] Stat 08/05/18 22:26 CHEST 2 VIEWS [RAD] Stat Cardiology Procedures 08/05/18 22:30 EKG NOW 08/06/18 01:15 Waste Disposal Attendant .Continuous Abnormal Labs: Abnormal Lab Results 08/05/18 08/05/18 08/06/18 Range/Units 21:07 21:07 06:10 RBC 2.66 L 2.36 L (3.80-5.40) M/uL Hgb 8.0 L 7.0 L (11.6-16.0) gm/dl Hct 26.4 L 23.4 L (35.0-47.0) % MCV 99.2 H 99.2 H (81-97) fl MCHC 30.3 L 29.9 L (32-36) g/dl RDW (11.5-14.5) % Neutrophils % (47-80) % Monocytes (0-9) % Potassium 5.1 H (3.4-4.5) mmol/L Chloride (98-107) mmol/L BUN 49 H (8-23) mg/dL Creatinine 1.2 H (0.5-0.9) mg/dL POC Glucose (70-110) mg/dL Random Glucose 295 H (74-109) mg/dL Albumin 3.9 L (4.0-5.0) g/dL Albumin/Globulin Ratio 1.0 L (1.1-1.8) 08/06/18 08/06/18 08/06/18 Range/Units 06:10 07:30 22:12 RBC (3.80-5.40) M/uL Hgb (11.6-16.0) gm/dl Hct (35.0-47.0) % MCV (81-97) fl MCHC (32-36) g/dl RDW (11.5-14.5) % Neutrophils % (47-80) % Monocytes (0-9) % Potassium 5.0 H (3.4-4.5) mmol/L Chloride (98-107) mmol/L BUN 45 H (8-23) mg/dL Creatinine 1.0 H (0.5-0.9) mg/dL POC Glucose 184 H 485 H* (70-110) mg/dL Random Glucose 189 H (74-109) mg/dL Albumin 3.3 L (4.0-5.0) g/dL Albumin/Globulin Ratio 1.0 L (1.1-1.8) 08/06/18 08/07/18 08/07/18 Range/Units 22:27 06:10 06:10 RBC 2.35 L (3.80-5.40) M/uL Hgb 7.1 L (11.6-16.0) gm/dl Hct 23.5 L (35.0-47.0) % MCV 100.0 H (81-97) fl MCHC 30.2 L (32-36) g/dl RDW 14.7 H (11.5-14.5) % Neutrophils % 46.0 L (47-80) % Monocytes 12.0 H (0-9) % Potassium 4.8 H (3.4-4.5) mmol/L Chloride 110 H (98-107) mmol/L BUN 48 H (8-23) mg/dL Creatinine 1.4 H (0.5-0.9) mg/dL POC Glucose (70-110) mg/dL Random Glucose 406 H (74-109) mg/dL Albumin (4.0-5.0) g/dL Albumin/Globulin Ratio (1.1-1.8) Condition at Discharge: (2) Stable Discharge Medications - Discharge Medications Prescriptions: Azithromycin [Zithromax] 500 mg PO QHS #7 tab Cefdinir [Omnicef] 300 mg PO BID #14 cap Home Medications: Ambulatory Orders Multivitamin/Iron/Folic Acid [Multi Complete-Iron Tablet] 1 tab PO QD tab 03/01 [Last Taken Unknown] Vitamin B Complex Vit C No.4 [Super B Complex] 150 mg PO DAILY tab 03/01/18 [ Last Taken Unknown] Aspirin [Aspir-Low] 81 mg PO DAILY 08/05/18 [Last Taken Unknown] Azithromycin [Zithromax] 500 mg PO QHS #7 tab 08/07/18 [Last Taken Unknown] Cefdinir [Omnicef] 300 mg PO BID #14 cap 08/07/18 [Last Taken Unknown] Discharge Plan - Discharge Instructions Activity at Discharge: Resume Usual Activities As Tolerated Diet at Discharge: Diabetic Diet Quality Measures - Quality Measures Quality Measures: Advance Directives, Documentation of Current Medications in Medical Record, Elder Maltreatment Screen and Follow-Up Plan, Screening for High Blood Pressure and F/U Documented - Current Medications Quality Measure: Measure #130: Documentation of Current Medications Documentation of Current Medications: <Current Medications Documented/Reviewed> [G8427] - Blood Pressure Screening Quality Measure: Screening for High Blood Pressure and Follow-Up Documented Does Patient Have Any of the Following: Active Dx of HTN Blood Pressure Classification: Pre-Hypertensive BP Reading Systolic Measurement: 137 Diastolic Measurement: 58 Screening for High Blood Pressure: Patient Exclusion, Hx of HTN [G9744] - Advance Directives Quality Measure: Measure #47: Care Plan Advance Directives Established: No Advance Directives Information Provided To Patient: No Advance Directives on File: No Advance Care Planning: <Care Plan/Decision Maker Documented; Discussed & Documented> [1123F] - Elder Abuse Suspicion Index Screening: Elder Abuse Suspicion Index Screening Rely on people for bathing, dressing, shopping, banking, etc: Yes Prevented from getting food, clothes, medication, etc: No Made to feel shamed or threatened by someone: No Forced to sign papers or use money against will: No Feel afraid, touched in ways not wanted or hurt physically: No Poor eye contact, withdrawn, malnourished, cuts or bruises: No Screening Result: Negative result EASI Reference Information: Concepcion PLUNKETT, Florencio C, Heather D, Vicky Sethi.Development and validation of a tool to assist physicians identification of elder abuse: The Elder Abuse Suspicion Index (EASI ). Journal of Elder Abuse and Neglect, 2008; 20 (3): 276-300. - Elder Maltreatment Screen Quality Measures: Elder Maltreatment Screen and Follow-Up Plan Elder Maltreatment Screen: <Negative, No Follow-Up Plan Required> [G8728]
[2018-08-07] MEDS ORDERED: LISINOPRIL 20 MG TABLET PO SCH (10:00)
[2018-08-07] MEDS ORDERED: MULTIVITAMINS/MINERALS TABLET PO SCH (10:00)
--- NOTE | 2018-08-07 10:18 | Physician Addendum ---
Addendum (Physician) Patient instructions: Continue taking the antibiotics as prescribed for the next 7 days. Follow up with Dr. Rachel next August 15 for your transitional care appointment. Before coming in have labs drawn and a repeat chest xray to see if pneumonia is resolving. 08/07/18 10:15
[2018-08-07] MEDS ORDERED: CEFTRIAXONE 1GM/50ML BAG 1 GM/50 ML BAG IVPB SCH (22:00)
[2018-08-08] MEDS ORDERED: ATORVASTATIN 20 MG TABLET PO SCH (10:00)
== END 2018-08-07 12:32 | disposition home or self-care (01) | DRG 193 ==
LOC: ER 20:51 → MEDSURG 23:45
PROVIDERS: ADMIT Internal Medicine; ATTEND Internal Medicine
DX: J18.9 Pneumonia, unspecified organism (principal); I63.9 Cerebral infarction, unspecified; D64.9 Anemia, unspecified; R73.9 Hyperglycemia, unspecified; S51.811A Laceration without foreign body of right forearm, initial encounter; E11.9 Type 2 diabetes mellitus without complications; Z79.4 Long term (current) use of insulin; N28.9 Disorder of kidney and ureter, unspecified; I10 Essential (primary) hypertension; W19.XXXA Unspecified fall, initial encounter; Z85.828 Personal history of other malignant neoplasm of skin; Z86.73 Personal history of transient ischemic attack (TIA), and cerebral infarction without residual deficits
CPT/HCPCS: 85730; 85610; 80053; 85027; 71046; 73090; 72125; 70450; 93005; 93010; G0480; 36416; 80048; 80320; 82947; 82948; 86850; 86900; 86901; 96365; 96366; 99223; 99238; 99285

== ENCOUNTER 2018-08-25 18:30 | Emergency (ER) | payer BC ==
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
[2018-08-25 18:48] LABS: BASO % 0.3 % (0-6); EOS % 1.3 % (0-6); GRAN % 52.8 % (47-80); HEMOGLOBIN 8.2 gm/dl (11.6-16.0); LYMPH % 33.8 % (16-45); MEAN CELL VOLUME 100.4 fl (81-97); MEAN CORPUSCULAR HGB CONC 29.3 g/dl (32-36); MEAN PLATELET VOLUME 9.3 fl (7.4-10.4); MONO % 11.8 % (0-9); PLATELET COUNT 301 K/uL (130-400); RED BLOOD COUNT 2.79 M/uL (3.80-5.40); RED CELL DISTRIBUTION WIDTH 15.1 % (11.5-14.5)
[2018-08-25 18:50] LABS: MEAN CORPUSCULAR HEMOGLOBIN 29.3 pg (27-33)
[2018-08-25 18:57] LABS: BILIRUBIN,TOTAL 0.5 mg/dL (0.2-1.0); TOTAL PROTEIN 8.1 g/dL (6.6-8.7)
[2018-08-25 18:59] LABS: ALCOHOL 0.01 g/dL (0-0.010)
[2018-08-25 19:00] LABS: INR 1.1; PROTHROMBIN TIME (PATIENT) 10.6 SECONDS (9.5-12.1)
--- NOTE | 2018-08-27 21:05 | CT SCAN REPORT ---
EXAM: CT SCAN HEAD WO CONTRAST HISTORY: FALL, HEAD INJURY, PATIENT ON ANTICOAGULATION THERAPY. TECHNIQUE: Noncontrast CT head. COMPARISON: CT brain 08/05/2018. FINDINGS: No midline shift, mass effect, or abnormal intra or extraaxial fluid collection seen. No cerebral edema, focal mass, or intracranial hemorrhage detected. Probable remote lacunar infarctions involving the left basal ganglia appear similar from comparison. Bilateral carotid vertebral artery calcifications are noted. No evidence of a displaced calvarial fracture on bone window images. Visualized paranasal sinuses and mastoid air cells are clear. Diffuse cerebral volume loss is similar from prior study. Similar appearance of periventricular and subcortical white matter hypoattenuation. IMPRESSION: 1. NO ACUTE INTRACRANIAL FINDINGS. 2. MILD SOFT TISSUE SWELLING OF THE POSTERIOR SCALP SOFT TISSUES. 3. CHRONIC CHANGES INCLUDING LIKELY REMOTE LEFT BASAL GANGLIA LACUNAR INFARCTIONS, DIFFUSE CEREBRAL VOLUME LOSS, AND PROBABLE CHRONIC SMALL VESSEL ISCHEMIC WHITE MATTER CHANGES. SIMILAR FROM PRIOR. JOB NUMBER: [id number] MTDD
--- NOTE | 2018-08-27 21:10 | CT SCAN REPORT ---
EXAM: CT SCAN CERVICAL SPINE WO CONTRAST HISTORY: FALL WITH NECK PAIN. TECHNIQUE: Noncontrast CT cervical spine. COMPARISON: CT cervical spine 08/05/2018. FINDINGS: No acute fracture is detected. No evidence of dislocation. Diffuse osteopenia. Multilevel disc height loss, anterior/posterior endplate osteophytes, and facet arthrosis. Bilateral neural foraminal stenosis at most cervical spine levels. Bilateral carotid calcifications. Extensive opacities in the visualized right upper lung. IMPRESSION: 1. NO EVIDENCE OF CERVICAL SPINE FRACTURE OR DISLOCATION. 2. MULTILEVEL CERVICAL SPINE DEGENERATIVE CHANGES WITH AREAS OF NEURAL FORAMINAL STENOSIS, SIMILAR FROM COMPARISON. 3. INCIDENTAL NOTE OF RIGHT LUNG OPACITIES, DESCRIBED IN SEPARATE DEDICATED CT CHEST REPORT FROM THE SAME DAY. JOB NUMBER: [id number] MTDD
--- NOTE | 2018-08-27 21:21 | CT SCAN REPORT ---
EXAM: CT SCAN CHEST WO CONTRAST HISTORY: FALL. TECHNIQUE: Noncontrast CT chest. COMPARISON: Chest radiograph 08/05/2018. FINDINGS: No significant pericardial fluid collection. Coronary artery calcifications. No mediastinal, hilar, or axillary lymphadenopathy. Coarsely calcified nonenlarged paratracheal subcarinal and right hilar lymph nodes are noted. Thoracic aorta is calcified, nonaneurysmal. A normal right main pulmonary artery is not clearly seen; coarse calcifications are noted in the expected region of the main pulmonary and right artery. Right lung appears small, with relative hyperinflation of the left lung. Extensive interstitial and ground-glass opacities throughout the entire right lung. Minimal diffuse right pleural thickening. Minimal left apical pleural scarring. Left lung otherwise clear. Calcified granulomas in the liver and spleen. Diffuse thoracic spondylosis. No definite acute osseous findings. IMPRESSION: 1. EXTENSIVE GROUND-GLASS AND INTERSTITIAL OPACITIES THROUGHOUT THE RIGHT LUNG. RIGHT LUNG HYPOINFLATION/HYPOPLASIA WITH RELATIVE HYPERINFLATION OF THE LEFT LUNG. RIGHT LUNG FINDINGS MAY REPRESENT EXTENSIVE CHRONIC FIBROSIS WITH OR WITHOUT SUPERIMPOSED ACUTE AIR-SPACE DISEASE/PNEUMONIA. A SIMILAR APPEARANCE OF THE RIGHT LUNG WAS SEEN ON RADIOGRAPH DATED 08/05/2018. 2. NONVISUALIZATION OF THE RIGHT MAIN PULMONARY ARTERY; THIS MAY REPRESENT CONGENITAL ABSENCE OR CHRONIC OCCLUSION. PATIENTS WITH CONGENITAL ABSENCE OF A PULMONARY ARTERY ARE PREDISPOSED TO RECURRENT INFECTION OF THE IPSILATERAL LUNG. 3. CORONARY ARTERY CALCIFICATIONS. JOB NUMBER: [id number] [facility]
== END 2018-08-25 20:50 | disposition home or self-care (01) ==
LOC: ER 18:30
DX: S00.03XA Contusion of scalp, initial encounter (principal); R42 Dizziness and giddiness; M54.2 Cervicalgia; Z91.81 History of falling; W01.198A Fall on same level from slipping, tripping and stumbling with subsequent striking against other object, initial encounter; Y92.000 Kitchen of unspecified non-institutional (private) residence as the place of occurrence of the external cause; E11.9 Type 2 diabetes mellitus without complications; I10 Essential (primary) hypertension; Z79.01 Long term (current) use of anticoagulants
CPT/HCPCS: 99284 ×2; 85025; 85730; 85610; 80053; 72125; 71250; 70450; G0480; 80320

== ENCOUNTER 2018-09-15 06:45 | Emergency (ER) | payer BC ==
--- NOTE | 2018-09-15 06:47 | Emergency Department Record ---
History of Present Illness - General Chief Complaint: Trauma Stated Complaint: FALLS Source: Patient, EMS Mode of Arrival: EMS Limitations: Physical limitation - History of Present Illness Initial Comments: pt fell trying to get into chair. she landed on her l side. she denies hitting her head or loc. her daughter heard her fall and found her. she has hx of a stroke in the basal ganglia. she has frequent falls. she has been sick the last day with a cough. she has had increasing sob.paramedics stated she had crackles in her lungs and gave her [address] in [place] Complaint: Fall -: Minutes(s) Loss of Consciousness: No Location: Chest Location - Extremities: Left: Hip Consistency: Constant Associated Symptoms: Cough, Difficulty breathing, Weakness Treatments Prior to Arrival: Spinal immobilization - Related Data Allergies Allergy/AdvReac Type Severity Reaction Status Date / Time aspirin AdvReac nose bleed Unverified 08/31/18 16:08 Review of Systems Reviewed: No additional complaints except as noted below Constitutional: Reports: Weakness. Denies: Chills, Fever, Malaise, Night sweats , Weight change Eyes: Reports: As per HPI. Denies: Eye discharge, Eye pain, Photophobia, Vision change ENT: Reports: As per HPI, Congestion. Denies: Dental pain, Ear pain, Epistaxis , Hearing loss, Throat pain Respiratory: Reports: As per HPI. Denies: Cough, Dyspnea, Hemoptysis, Stridor, Wheezes Cardiovascular: Reports: As per HPI. Denies: Arrhythmia, Chest pain, Dyspnea on exertion, Edema, Murmurs, Orthopnea, Palpitations, Paroxysmal nocturnal dyspnea, Rheumatic Fever, Syncope Endocrine: Reports: As per HPI. Denies: Fatigue, Heat or cold intolerance, Polydipsia, Polyuria Gastrointestinal: Reports: As per HPI. Denies: Abdominal pain, Constipation, Diarrhea, Hematemesis, Hematochezia, Melena, Nausea, Vomiting Genitourinary: Reports: As per HPI. Denies: Abnormal menses, Discharge, Dyspareunia, Dysuria, Frequency, Hematuria, Incontinence, Retention, Urgency Musculoskeletal: Reports: As per HPI. Denies: Arthralgia, Back pain, Gout, Joint swelling, Myalgia, Neck pain Skin: Reports: As per HPI. Denies: Bruising, Change in color, Change in hair/ nails, Lesions, Pruritus, Rash Neurological: Reports: As per HPI, Weakness. Denies: Abnormal gait, Confusion, Headache, Numbness, Paresthesias, Seizure, Tingling, Tremors, Vertigo Psychiatric: Reports: As per HPI. Denies: Anxiety, Auditory hallucinations, Depression, Homicidal thoughts, Suicidal thoughts, Visual hallucinations Hematological/Lymphatic: Reports: As per HPI. Denies: Anemia, Blood Clots, Easy bleeding, Easy bruising, Swollen glands Past Medical History - SOCIAL HISTORY Smoking Status: Never smoker Alcohol Use: None Drug Use: None - RESPIRATORY Hx Respiratory Disorders: No - CARDIOVASCULAR Hx Cardio Disorders: Yes Hx Hypertension: Yes Comment:: high cholesterol - NEURO Hx Neuro Disorders: No Hx TIA: Yes - GI Hx GI Disorders: No - Hx Genitourinary Disorders: No - ENDOCRINE Hx Endocrine Disorders: Yes Hx Diabetes: Yes - MUSCULOSKELETAL Hx Musculoskeletal Disorders: No - PSYCH Hx Psych Problems: No - HEMATOLOGY/ONCOLOGY Hx Hematology/Oncology Disorders: No Hx Anemia: Yes Hx Cancer: Yes (skin) Hx Chemotherapy: No Hx Radiation Therapy: No Family Medical History Any Significant Family History?: Yes Hx Cancer: Brother/Sister Hx Heart Disease: Father, Mother Physical Exam - General General Appearance: Alert, Oriented x3, Cooperative, Mild distress - Head Head exam: Normal inspection - Eye Eye exam: Normal appearance, PERRL, EOMI Pupils: Normal accommodation - ENT ENT exam: Normal exam, Mucous membranes moist, Normal external ear exam, Normal orophraynx Ear exam: Normal external inspection. negative: External canal tenderness Nasal Exam: Normal inspection. negative: Discharge, Sinus tenderness Mouth exam: Normal external inspection, Tongue normal Teeth exam: Normal inspection. negative: Dental caries Throat exam: Normal inspection. negative: Tonsillar erythema, Tonsillar exudate - Neck Neck exam: Normal inspection, Full ROM. negative: Tenderness - Respiratory Respiratory exam: Chest wall tenderness, Rales, Respiratory distress - Cardiovascular Cardiovascular Exam: Normal rhythm, Normal heart sounds, Tachycardia - GI/Abdominal GI/Abdominal exam: Soft, Normal bowel sounds. negative: Tenderness - Rectal Rectal exam: Deferred - exam: Deferred - Extremities Extremities exam: Normal inspection, Full ROM, Normal capillary refill, Tenderness (l hip) - Back Back exam: Reports: Normal inspection, Full ROM. Denies: Muscle spasm, Rash noted, Tenderness - Neurological Neurological exam: Alert, Normal gait, Oriented X3, Reflexes normal - Psychiatric Psychiatric exam: Normal affect, Normal mood - Skin Skin exam: Dry, Intact, Normal color, Warm Course Vital Signs 09/15/18 06:25 Temperature 98.5 F Pulse Rate [ 145 H Management Development Specialist ] Respiratory 38 H Rate Blood Pressure 135/100 [Right Arm] Pulse Ox 100 - Reevaluation(s) Reevaluation #1: 09/15/18 06:55 care is being turned over to dr ayon. Medical Decision Making - Lab Data Result diagrams: 09/15/18 06:34 09/15/18 06:34 Disposition Quality - Quality Measures Quality Measures: Blunt Head Trauma (>2yr) - Blunt Head Trauma - Adult Quality Measure: Measure #415: Utilization of CT for Minor Blunt Head Trauma ICD10 Codes Entered: Yes Barak Score: Please complete [place] Coma Scale above - Blood Pressure Screening Does Patient Have Any of the Following: No Blood Pressure Classification: Hypertensive Reading Systolic Measurement: 135 Diastolic Measurement: 100
[2018-09-15 06:57] LABS: HEMATOCRIT 30.2 % (35.0-47.0); HEMOGLOBIN 9.1 gm/dl (11.6-16.0); MEAN CELL VOLUME 98.4 fl (81-97); MEAN CORPUSCULAR HEMOGLOBIN 29.6 pg (27-33); MEAN CORPUSCULAR HGB CONC 30.1 g/dl (32-36); MEAN PLATELET VOLUME 9.8 fl (7.4-10.4); PLATELET COUNT 283 K/uL (130-400); RED BLOOD COUNT 3.07 M/uL (3.80-5.40); RED CELL DISTRIBUTION WIDTH 15.2 % (11.5-14.5); WHITE BLOOD COUNT W/O DIFF 7.5 K/uL (4.2-12.2)
[2018-09-15 07:04] LABS: BILIRUBIN,TOTAL 0.7 mg/dL (0.2-1.0); CREATININE 1.1 mg/dL (0.5-0.9)
[2018-09-15 07:05] LABS: TOTAL PROTEIN 8.7 g/dL (6.6-8.7)
[2018-09-15 07:07] LABS: ALCOHOL 0.01 g/dL (0-0.010); INR 1.1; PARTIAL THROMBOPLASTIN TIME 30.9 SECONDS (24.5-39.1); PROTHROMBIN TIME (PATIENT) 10.8 SECONDS (9.5-12.1)
[2018-09-15 07:10] LABS: ALB/GLOB RATIO 0.9 (1.1-1.8)
--- NOTE | 2018-09-15 07:12 | Emergency Department Record ---
History of Present Illness - General Chief Complaint: Trauma Stated Complaint: FALLS Time Seen by Provider: 09/15/18 07:01 Source: Patient, Family, EMS Mode of Arrival: EMS Limitations: No limitations - History of Present Illness Initial Comments: 83 yo female presents after a fall at home. The patient lives with her daughter but the fall was unwitnessed. She states she was getting out of the bathroom and fell. She states she did not hit her head. She has left rib and hip pain. She denies syncope. No chest pain. She has some cough. She is not sure of what time she fell. Dr Rachel is her primary care doctor. MD Complaint: Fall -: Minutes(s) Fall From: Standing When Fall Occurred: Unsure Fall Witnessed: No Place Fall Occurred: Home Loss of Consciousness: None Prolonged Down Time?: No Symptoms Prior to Fall: Lightheadedness, Other (Weak) Location: Chest, Pelvis Severity: Moderate Quality: Aching Context: Tripped/slipped Associated Symptoms: Weakness - [place] Coma Scale Eye Response: (4) Open spontaneously Motor Response: (6) Obeys commands Verbal Response: (5) Oriented [place] Total: 15 - Related Data Allergies Allergy/AdvReac Type Severity Reaction Status Date / Time aspirin AdvReac nose bleed Unverified 08/31/18 16:08 Review of Systems Constitutional: Reports: Weakness. Denies: Chills, Fever, Malaise, Night sweats , Weight change Eyes: Reports: As per HPI. Denies: Eye discharge, Eye pain, Photophobia, Vision change ENT: Reports: As per HPI, Congestion. Denies: Dental pain, Ear pain, Epistaxis , Hearing loss, Throat pain Respiratory: Reports: As per HPI. Denies: Cough, Dyspnea, Hemoptysis, Stridor, Wheezes Cardiovascular: Reports: As per HPI. Denies: Arrhythmia, Chest pain, Dyspnea on exertion, Edema, Murmurs, Orthopnea, Palpitations, Paroxysmal nocturnal dyspnea, Rheumatic Fever, Syncope Endocrine: Reports: As per HPI. Denies: Fatigue, Heat or cold intolerance, Polydipsia, Polyuria Gastrointestinal: Reports: As per HPI. Denies: Abdominal pain, Constipation, Diarrhea, Hematemesis, Hematochezia, Melena, Nausea, Vomiting Genitourinary: Reports: As per HPI. Denies: Abnormal menses, Discharge, Dyspareunia, Dysuria, Frequency, Hematuria, Incontinence, Retention, Urgency Musculoskeletal: Reports: As per HPI. Denies: Arthralgia, Back pain, Gout, Joint swelling, Myalgia, Neck pain Skin: Reports: As per HPI. Denies: Bruising, Change in color, Change in hair/ nails, Lesions, Pruritus, Rash Neurological: Reports: As per HPI, Weakness. Denies: Abnormal gait, Confusion, Headache, Numbness, Paresthesias, Seizure, Tingling, Tremors, Vertigo Psychiatric: Reports: As per HPI. Denies: Anxiety, Auditory hallucinations, Depression, Homicidal thoughts, Suicidal thoughts, Visual hallucinations Hematological/Lymphatic: Reports: As per HPI. Denies: Anemia, Blood Clots, Easy bleeding, Easy bruising, Swollen glands Past Medical History - SOCIAL HISTORY Smoking Status: Never smoker Alcohol Use: None Drug Use: None - RESPIRATORY Hx Respiratory Disorders: No - CARDIOVASCULAR Hx Cardio Disorders: Yes Hx Hypertension: Yes Comment:: high cholesterol - NEURO Hx Neuro Disorders: No Hx TIA: Yes - GI Hx GI Disorders: No - Hx Genitourinary Disorders: No - ENDOCRINE Hx Endocrine Disorders: Yes Hx Diabetes: Yes - MUSCULOSKELETAL Hx Musculoskeletal Disorders: No - PSYCH Hx Psych Problems: No - HEMATOLOGY/ONCOLOGY Hx Hematology/Oncology Disorders: No Hx Anemia: Yes Hx Cancer: Yes (skin) Hx Chemotherapy: No Hx Radiation Therapy: No Family Medical History Any Significant Family History?: Yes Hx Cancer: Brother/Sister Hx Heart Disease: Father, Mother Physical Exam - General General Appearance: Alert, Oriented x3, Cooperative, No acute distress Limitations: Physical limitation - Head Head exam: Atraumatic, Normocephalic, Normal inspection - Eye Eye exam: Normal appearance. negative: Conjunctival injection - ENT ENT exam: Normal exam Ear exam: Normal external inspection Nasal Exam: Normal inspection Mouth exam: Normal external inspection - Neck Neck exam: Normal inspection - Respiratory Respiratory exam: Decreased breath sounds, Rhonchi. negative: Normal lung sounds bilaterally, Respiratory distress - Cardiovascular Cardiovascular Exam: Irregular rhythm, Tachycardia Peripheral Pulses: 2+: Radial (R), Radial (L) - GI/Abdominal GI/Abdominal exam: Soft. negative: Tenderness - Rectal Rectal exam: Deferred - exam: Deferred - Extremities Extremities exam: Normal inspection, Tenderness (left hip) - Back Back exam: Reports: CVA tenderness (L) - Neurological Neurological exam: Alert, Oriented X3 - Psychiatric Psychiatric exam: Normal affect, Normal mood - Skin Skin exam: Dry, Intact, Normal color, Warm Course Vital Signs 09/15/18 06:25 Temperature 98.5 F Pulse Rate [ 145 H Library Services Coordinator ] Respiratory 38 H Rate Blood Pressure 135/100 [Right Arm] Pulse Ox 100 - Reevaluation(s) Reevaluation #1: EKG 06:28 Atrial fibrillation rate 151, intervals Qtc 478, axis normal, ST NS changes. New atrial fibrillation on today's EKG. 09/15/18 07:12 09/15/18 07:14 The CBC was reviewed Stable chronic anemia CR is 1.1 09/15/18 07:27 Troponin 0.035 in the indeterminate range BNP 1259 09/15/18 08:26 HR improved to 110 still afib on the monitor Waiting for radiology reports 09/15/18 08:54 The daughter Kim, was updated. [phone] (home). . 09/15/18 09:[address] was negative for acute process The Cervical CT was negative for acute process The Chest has similar dense consolidation as prior that is chronic. No injuries The Abdomen and Pelvis CT was negative for injury. Gall stones noted. Spine degenerative changes. 09/15/18 09:33 HR improved to 100 on Cardizem drip The daughter called and prefers [facility] for transfer. [facility] paged for transfer 09/15/18 09:37 Dr Scott accepts the patient for transfer to [facility] for new onset atrial fibrillation, falls, influenza, elevated troponin Medical Decision Making - Lab Data Result diagrams: 09/15/18 06:31 09/15/18 06:31 Lab Results 09/15/18 Range/Units 06:31 WBC 7.5 (4.2-12.2) K/uL RBC 3.07 L (3.80-5.40) M/uL Hgb 9.1 L (11.6-16.0) gm/dl Hct 30.2 L (35.0-47.0) % MCV 98.4 H (81-97) fl MCH 29.6 (27-33) pg MCHC 30.1 L (32-36) g/dl RDW 15.2 H (11.5-14.5) % Plt Count 283 (130-400) K/uL MPV 9.8 (7.4-10.4) fl Eosinophils % Not Reportable Basophils % Not Reportable Disposition Disposition: Transfer Clinical Impression: Elevated troponin I level, Influenza, Atrial fibrillation with rapid ventricular response Fall Qualifiers: Encounter type: initial encounter Qualified Code(s): W19.XXXA - Unspecified fall, initial encounter Anemia Qualifiers: Anemia type: unspecified type Qualified Code(s): D64.9 - Anemia, unspecified Disposition: Acute Care Hospital Transfer Transfer To: [facility] Reason For Transfer: New Onset Atrial Fibrillation, Influenza Accepting Physician: Sonia Time Discussed w/Accepting Physician: : Condition: (2) Stable Forms: Patient Portal Access Time of Disposition: Quality - Quality Measures Quality Measures: N/A, Blunt Head Trauma (>2yr) - [place] Coma Scale Eye Response: (4) Open spontaneously Motor Response: (6) Obeys commands Verbal Response: (5) Oriented [place] Total: 15 - Blunt Head Trauma - Adult Quality Measure: Measure #415: Utilization of CT for Minor Blunt Head Trauma ICD10 Codes Entered: Yes Was CT ordered: Yes Does Patient Have Any of the Following: Taking Antiplatelet Med Barak Score: [address] for Minor Blunt Head Trauma: Patient Excluded [G9531] - Blood Pressure Screening Does Patient Have Any of the Following: Active Dx of HTN Blood Pressure Classification: Pre-Hypertensive BP Reading Systolic Measurement: 128 Diastolic Measurement: 67 Screening for High Blood Pressure: Patient Exclusion, Hx of HTN [G9744]
[2018-09-15 07:25] LABS: ANISOCYTOSIS 1+; PLATELET ESTIMATE NORMAL (NORMAL)
[2018-09-15 08:03] LABS: INFLUENZA A POSITIVE (NEGATIVE)
[2018-09-15] MEDS ORDERED: OSTELTAMIVIR 75 MG CAP PO ONE (08:12)
[2018-09-15 08:13] LABS: INFLUENZA B NEGATIVE (NEGATIVE)
[2018-09-15] MEDS ORDERED: DILTIAZEM HCL 125 MG in 0.9 % SODIUM CHLORIDE 100ML 100 ML IV SCH (08:15)
[2018-09-15] MEDS ORDERED: ACETAMINOPHEN 325 MG TAB PO ONE (09:48)
--- NOTE | 2018-09-16 10:42 | CT SCAN REPORT ---
DATE: 09/15/2018. EXAM: CT OF THE CHEST WITHOUT CONTRAST. HISTORY: DIFFICULTY BREATHING. FALL. TECHNIQUE: Sequential axial images were obtained from the thoracic inlet through the bilateral adrenals without intravenous contrast administration. FINDINGS: There is healed granulomatous disease. There is volume loss in the right hemithorax. There is dense consolidation with air bronchograms in the right hemithorax. The left hemithorax is clear. There is osteopenia. No compression fracture deformity. The visualized upper . IMPRESSION: 1. VOLUME LOSS IN THE RIGHT HEMITHORAX WITH DENSE CONSOLIDATION WITH AIR BRONCHOGRAMS. THERE IS RIGHT PLEURAL THICKENING. 2. NO COMPRESSION FRACTURE DEFORMITY. JOB NUMBER: [id number] [facility]TDD
--- NOTE | 2018-09-16 10:46 | CT SCAN REPORT ---
DATE: 09/15/2018. EXAM: CT OF THE BRAIN WITHOUT CONTRAST. HISTORY: FOLLOWUP. TECHNIQUE: Sequential axial images were obtained from the foramen magna to the vertex without contrast administration. FINDINGS: The brain volume is normal. There is periventricular small-vessel ischemia. No large territorial infarct, hemorrhage, mass effect, or midline shift. No extra-axial fluid collection. The orbits, paranasal sinuses, and mastoid air cells are normal. IMPRESSION: 1. NO ACUTE INTRACRANIAL ABNORMALITIES APPRECIATED. 2. PERIVENTRICULAR SMALL-VESSEL ISCHEMIA. JOB [facility]BER: [id number] [facility]
--- NOTE | 2018-09-16 10:49 | CT SCAN REPORT ---
DATE: 09/15/2018. EXAM: CT OF THE CERVICAL SPINE. HISTORY: FALL. TECHNIQUE: Sequential axial images were obtained through the cervical spine without intravenous contrast administration. Sagittal and coronal reformatted images were performed. FINDINGS: There is osteopenia. Multilevel degenerative change. No evidence of fracture, subluxation, or hypertrophied facets. IMPRESSION: MULTILEVEL DEGENERATIVE CHANGE. NO EVIDENCE OF FRACTURE, SUBLUXATION, OR HYPERTROPHIED FACETS. JOB NUMBER: [id number] [facility]
--- NOTE | 2018-09-16 10:56 | CT SCAN REPORT ---
DATE: 09/15/2018. EXAM: CT OF THE ABDOMEN AND PELVIS WITHOUT CONTRAST. HISTORY: FALL. TECHNIQUE: Sequential axial images were obtained from the diaphragms through the ischiorectal fossa without intravenous or oral contrast administration. FINDINGS: Dense consolidation of the right hemithorax. Hepatic and splenic granulomatous disease. Cholelithiasis. The pancreas appears normal. The adrenal glands and kidneys appear normal. No CT findings suggestive of obstructive uropathy. The small bowel appears normal. The urinary bladder appears normal. The colon appears normal. Calcified fibroid within the uterus. There is osteopenia. No evidence of fracture. Minimal anterolisthesis of L4 in respect to L5. IMPRESSION: 1. CHOLELITHIASIS. 2. DENSE CONSOLIDATION OF THE RIGHT HEMITHORAX. 3. HEPATIC AND SPLENIC GRANULOMATOUS DISEASE. 4. SEVERE OSTEOPENIA. NO EVIDENCE OF FRACTURE. MINIMAL ANTEROLISTHESIS OF L4 IN RESPECT TO L5. JOB NUMBER: [id number] [facility]D
== END 2018-09-15 10:50 | disposition short-term general hospital (02) ==
LOC: ER 06:45
DX: I48.0 Paroxysmal atrial fibrillation (principal); R79.89 Other specified abnormal findings of blood chemistry; J10.1 Influenza due to other identified influenza virus with other respiratory manifestations; R06.00 Dyspnea, unspecified; M25.552 Pain in left hip; R42 Dizziness and giddiness; D64.9 Anemia, unspecified; I10 Essential (primary) hypertension; E11.9 Type 2 diabetes mellitus without complications; W19.XXXA Unspecified fall, initial encounter; Y92.009 Unspecified place in unspecified non-institutional (private) residence as the place of occurrence of the external cause; Z91.81 History of falling; Z79.4 Long term (current) use of insulin; Z79.82 Long term (current) use of aspirin; Z86.73 Personal history of transient ischemic attack (TIA), and cerebral infarction without residual deficits
CPT/HCPCS: 99285 ×2; 96365; 96366; 85730; 85610; 80053; 87400; 84484; 85027; 83880; 72125; 71250; 70450; 74176; 93005; 93010; G0480; 80320

== ENCOUNTER 2019-07-09 07:35 | Observation (INO) | payer BC ==
--- NOTE | 2019-07-09 07:57 | Emergency Department Record ---
History of Present Illness - General Chief Complaint: Altered Mental Status Time Seen by Provider: 07/09/19 07:43 Source: Patient, Family, EMS Mode of Arrival: Ambulatory Limitations: No limitations - History of Present Illness Initial Comments: 83 yo female presents with her daughter. She reports she has been noticeably weaker since last evening. She lives with her daughter. She normally performs most self care duties herself. She required help getting dressed last night. No obvious lateralizing weakness. No vision changes. Her responses are a bit slower than baseline. She slept much longer than usually last night and seemed difficulty to awake. The patient feels like she is in a fog. She had a recent fall on Tuesday landing on her back side. No fever. No cough or shortness of breath. No fever. She denies diarrhea. She vomited once but that seemed to be a brief swallowing issue with milk. No pain. Scott Gu [employer] [facility] is her primary care provider. She has PT two days per week. She was MD Complaint: Weakness Onset/Timin -: Days(s) Severity: Moderate Consistency: Constant Context: Other Associated Symptoms: Weakness - [place] Coma Scale Eye Response: (4) Open spontaneously Motor Response: (6) Obeys commands Verbal Response: (5) Oriented [place] Total: 15 - Related Data Previous Rx's Medication Instructions Recorded Acetaminophen [Tylenol 325Mg] 650 mg PO Q6H PRN tablet 12/04/18 Metoprolol Tartrate [Lopressor] 12.5 mg PO BID tab 12/04/18 Allergies Allergy/AdvReac Type Severity Reaction Status Date / Time aspirin AdvReac nose bleed Verified 07/09/19 07:45 Travel Screening - Travel/Exposure Within Last 30 Days Have you traveled within the last 30 days?: No - Travel/Exposure Within Last Year Have you traveled outside the [place] in the last year?: No - Additonal Travel Details Have you been exposed to anyone with a communicable illness?: No - Travel Symptoms Symptom Screening: None Review of Systems Constitutional: Reports: Malaise, Weakness. Denies: Chills, Fever Eyes: Denies: Eye discharge, Eye pain, Photophobia, Vision change ENT: Denies: Congestion, Throat pain Respiratory: Denies: Cough, Dyspnea Cardiovascular: Denies: Chest pain, Palpitations, Syncope Endocrine: Reports: Fatigue. Denies: Polydipsia, Polyuria Gastrointestinal: Reports: Vomiting (Once). Denies: Abdominal pain, Constipation, Diarrhea, Nausea Genitourinary: Denies: Dysuria, Urgency Musculoskeletal: Denies: Arthralgia, Back pain, Myalgia, Neck pain Skin: Reports: Change in color Neurological: Reports: Confusion, Weakness. Denies: Headache, Numbness, Tremors, Vertigo Psychiatric: Denies: Anxiety Hematological/Lymphatic: Denies: Easy bleeding, Easy bruising Past Medical History - SOCIAL HISTORY Smoking Status: Never smoker Alcohol Use: None Drug Use: None - RESPIRATORY Hx Respiratory Disorders: No Hx Pneumonia: Yes - CARDIOVASCULAR Hx Cardio Disorders: Yes Hx CHF: Yes Hx Hypertension: Yes Comment:: high cholesterol - NEURO Hx Neuro Disorders: No Hx TIA: Yes - GI Hx GI Disorders: No - Hx Genitourinary Disorders: No - ENDOCRINE Hx Endocrine Disorders: Yes Hx Diabetes: Yes - MUSCULOSKELETAL Hx Musculoskeletal Disorders: No Hx Arthritis: Yes - PSYCH Hx Psych Problems: No - HEMATOLOGY/ONCOLOGY Hx Hematology/Oncology Disorders: No Hx Anemia: Yes Hx Cancer: Yes (skin) Hx Chemotherapy: No Hx Radiation Therapy: No Family Medical History Any Significant Family History?: Yes Hx Cancer: Brother/Sister Hx Heart Disease: Father, Mother Physical Exam - General General Appearance: Alert, Oriented x3, Cooperative, No acute distress, Other (Mild slow responses) Limitations: No limitations - Head Head exam: Atraumatic, Normocephalic, Normal inspection - Eye Eye exam: Normal appearance, PERRL. negative: Conjunctival injection, Scleral icterus - ENT ENT exam: Mucous membranes dry Ear exam: Normal external inspection Nasal Exam: Normal inspection Mouth exam: Normal external inspection Teeth exam: Normal inspection Throat exam: Normal inspection - Neck Neck exam: Normal inspection, Full ROM. negative: Lymphadenopathy - Respiratory Respiratory exam: Normal lung sounds bilaterally. negative: Respiratory distress - Cardiovascular Cardiovascular Exam: Regular rate, Normal rhythm, Normal heart sounds Peripheral Pulses: 2+: Radial (R), Radial (L) - GI/Abdominal GI/Abdominal exam: Soft. negative: Distended, Guarding, Rebound, Rigid, Tenderness - Rectal Rectal exam: Deferred - exam: Deferred - Extremities Extremities exam: negative: Normal inspection Image of Full Body: 1 - green/blue bruise 2 - erythema - Back Back exam: Denies: CVA tenderness (R), CVA tenderness (L) - Neurological Neurological exam: Alert, Oriented X3 - Psychiatric Psychiatric exam: Normal affect, Normal mood - Skin Skin exam: Erythema Course Vital Signs 07/09/19 07:37 Temperature 99.5 F Pulse Rate 88 Respiratory 18 Rate Blood Pressure 139/74 Pulse Ox 97 - Reevaluation(s) Reevaluation #1: 07/09/19 08:02 EKG #1: 07:51 Rate: 87 Rhythm: sinus [place]: normal Intervals: normal ST segments: normal 07/09/19 08:21 The CBC was reviewed. Hgb is 8.5. Stable chronic anemia. Unchanged from prior. 07/09/19 08:55 The CMP was reviewed HCO3 is 21 AG is 18 Glucose is 223 BUN is 51 CR is 1.2 Troponin is 0.03 07/09/19 08:57 The HCT is negative for acute process The UA is negative for acute infection 07/09/19 09:14 The TSH is 5.08 07/09/19 09:21 Given the weakness, fall, inability to ambulate and perform ADL's I discussed admission with Scott Gu NP Medical Decision Making - Lab Data Result diagrams: 07/09/19 07:45 07/09/19 07:45 Disposition Disposition: Admit Clinical Impression: Weakness, Renal insufficiency, Hyperglycemia, Physical deconditioning, Acute on chronic anemia, DNR (do not resuscitate), Dehydration Disposition: Still a Patient at [facility] Decision to Admit: Admit from ER Decision to Admit Date: 07/09/19 Decision to Admit Time: 09:22 Condition: (2) Stable Forms: Patient Portal Access Time of Disposition: :22 Quality - Quality Measures Quality Measures: N/A - Blood Pressure Screening Does Patient Have Any of the Following: No Blood Pressure Classification: Pre-Hypertensive BP Reading Systolic Measurement: 139 Diastolic Measurement: 74 Screening for High Blood Pressure: < Pre-Hypertensive BP, F/U Documented > [G8950] Pre-Hypertensive Follow-up Interventions: Referral to alternative/primary care provider.
[2019-07-09 08:04] LABS: ABSOLUTE NEUTROPHIL COUNT 3.76; BASO % 0.2 % (0-6); EOS % 0.3 % (0-6); HEMATOCRIT 28.8 % (35.0-47.0); HEMOGLOBIN 8.5 gm/dl (11.6-16.0); LYMPH % 29.2 % (16-45); MEAN CELL VOLUME 105.9 fl (81-97); MEAN CORPUSCULAR HGB CONC 29.5 g/dl (32-36); MEAN PLATELET VOLUME 10.6 fl (7.4-10.4); MONO % 12.3 % (0-9); PLATELET COUNT 198 K/uL (130-400); RED BLOOD COUNT 2.72 M/uL (3.80-5.40); RED CELL DISTRIBUTION WIDTH 14.9 % (11.5-14.5); WHITE BLOOD COUNT W/O DIFF 6.5 K/uL (4.2-12.2)
[2019-07-09 08:07] LABS: MEAN CORPUSCULAR HEMOGLOBIN 31.2 pg (27-33)
[2019-07-09 08:17] LABS: INR 1.1; PARTIAL THROMBOPLASTIN TIME 30.2 SECONDS (24.5-39.1)
[2019-07-09 08:35] LABS: URINE APPEARANCE CLEAR; URINE BILIRUBIN NEGATIVE (NEGATIVE); URINE BLOOD TRACE-I (NEGATIVE); URINE COLOR YELLOW; URINE GLUCOSE (UA) NEGATIVE (NEGATIVE); URINE KETONE NEGATIVE (NEGATIVE); URINE LEUKOCYTE ESTERASE NEGATIVE (NEGATIVE); URINE NITRITE NEGATIVE (NEGATIVE); URINE UROBILINOGEN 0.2 E.U./dL (0.20 - 1.00)
[2019-07-09 08:41] LABS: BILIRUBIN,TOTAL 0.5 mg/dL (0.2-1.0); CREATININE 1.2 mg/dL (0.5-0.9)
[2019-07-09 08:42] LABS: URINE EPITHELIAL CELLS NONE SEEN (FEW); URINE RBC 0 - 2 (NONE SEEN); URINE WBC NONE SEEN (0-2/hpf)
[2019-07-09 08:47] LABS: ALB/GLOB RATIO 0.9 (1.1-1.8); ALBUMIN 3.8 g/dL (4.0-5.0)
[2019-07-09 08:58] LABS: THYROID STIMULATING HORMONE 5.08 uIU/mL (0.270-4.20)
[2019-07-09] MEDS ORDERED: ACETAMINOPHEN 325 MG TAB PO PRN (09:55)
[2019-07-09] MEDS ORDERED: 0.9 % SODIUM CHLORIDE 1000ML 1,000 ML IV ONE (09:55)
[2019-07-09] MEDS ORDERED: NYSTATIN MC SCH (09:55)
[2019-07-09] MEDS ORDERED: ESCITALOPRAM OXALATE 5 MG PO SCH (10:00)
[2019-07-09] MEDS ORDERED: VITAMIN B COMPLEX VIT C NO 4 150 MG PO SCH (10:00)
--- NOTE | 2019-07-09 10:24 | History & Physical ---
History of Present Illness - Date of Service Date of Service for History & Physical: 07/09/19 - History of Present Illness Admitting Diagnosis: weakness, deconditioning, dehydration, fall History of Present Illness: Madison Peck is an 83 y.o. F who presented to [facility] this morning d/t increasing weakness over 3-4 days. Lives with daughter, Kim, and is normally able to do most ADLs on her own. Has been receiving in home PT/OT 2 days per week. Daughter reported that she required assistance with getting dressed last night and is a little bit "slower" than her baseline. Pt stated she feels like she is in a fog. Was recently started on 2.5mg of Flexeril 1-2x/day d/t right sided rib/muscle pain. Daughter reported she has not been taking more than 5mg per day. Pain in right side has improved. Has had a slight decrease in eating and drinking. No fever, cough, SOB, diarrhea. PMHx: DMII, Hx of CVA, recurrent UTI, fluid overload PCP: Scott Gu NP ED Course -Vitals: T 97.6, HR 88, BP 139/74, RR 20, SpO2 97% on RA -Labs: Hgb 8.5, AG 18, Creatinine 1.2 (baseline), Trop 0.030, TSH 5.08 -Head CT: No acute process -U/A Negative 07/09/19 Vitals: T 98.1, HR 88, BP 184/68, RR 16, SpO2 98% on RA Pt lying in bed. Daughter at bedside. Pt alert and able to answer questions appropriately. Denied having any significant pain, still tenderness in right side after fall onto hand rail in the bathroom 4-5 weeks ago. Doesn't recall last BM but stated that they "havent been soft". Lesion to anterior side of LLE with surrounding erythema and warmth. This started as a skin tear in May that occurred from hitting her leg on the c ar door. Was last evaluated by PCP on 06/26/19 and there were no s/sx of infection noted. Travel Screening - Travel/Exposure Within Last 30 Days Have you traveled within the last 30 days?: No - Travel/Exposure Within Last Year Have you traveled outside the [place] in the last year?: No - Additonal Travel Details Have you been exposed to anyone with a communicable illness?: No - Travel Symptoms Symptom Screening: None Review of Systems Reviewed: No additional complaints except as noted below Constitutional: Reports: Malaise, Weakness. Denies: Chills, Fever Eyes: Denies: Eye discharge, Eye pain, Photophobia, Vision change ENT: Denies: Congestion, Throat pain Respiratory: Denies: Cough, Dyspnea Cardiovascular: Denies: Chest pain, Palpitations, Syncope Endocrine: Reports: Fatigue. Denies: Polydipsia, Polyuria Gastrointestinal: Reports: Constipation, Vomiting (Once). Denies: Abdominal pain, Diarrhea, Nausea Genitourinary: Denies: Dysuria, Urgency Musculoskeletal: Denies: Arthralgia, Back pain, Myalgia, Neck pain Skin: Reports: Lesions (LLE), Rash (since starting Metoprolol) Neurological: Reports: Confusion, Weakness. Denies: Headache, Numbness, Tremors, Vertigo Psychiatric: Denies: Anxiety Hematological/Lymphatic: Denies: Easy bleeding, Easy bruising Past Medical History - SOCIAL HISTORY Smoking Status: Never smoker Alcohol Use: None Drug Use: None - RESPIRATORY Hx Respiratory Disorders: No Hx Pneumonia: Yes - CARDIOVASCULAR Hx Cardio Disorders: Yes Hx CHF: Yes Hx Hypertension: Yes Comment:: high cholesterol - NEURO Hx Neuro Disorders: No Hx TIA: Yes - GI Hx GI Disorders: No - Hx Genitourinary Disorders: No - ENDOCRINE Hx Endocrine Disorders: Yes Hx Diabetes: Yes - MUSCULOSKELETAL Hx Musculoskeletal Disorders: No Hx Arthritis: Yes - PSYCH Hx Psych Problems: No - HEMATOLOGY/ONCOLOGY Hx Hematology/Oncology Disorders: No Hx Anemia: Yes Hx Cancer: Yes (skin) Hx Chemotherapy: No Hx Radiation Therapy: No Family Medical History Any Significant Family History?: Yes Hx Cancer: Brother/Sister Hx Heart Disease: Father, Mother H&P Meds/Allergies - Allergies Allergies: Allergies Allergy/AdvReac Type Severity Reaction Status Date / Time aspirin AdvReac nose bleed Verified 07/09/19 07:45 - Home Medications Previous Rx's Medication Instructions Recorded Acetaminophen [Tylenol 325Mg] 650 mg PO Q6H PRN tablet 12/04/18 Metoprolol Tartrate [Lopressor] 12.5 mg PO BID tab 12/04/18 - Active Medications Active Medications: Current Medications Acetaminophen (Tylenol 325mg) 650 mg PO Q6H PRN PRN Reason: PAIN - MILD(1-4)/FEVER Atorvastatin Calcium (Lipitor) 10 mg PO DAILY [facility] Escitalopram Oxalate (Lexapro) 10 mg PO DAILY [facility] Sodium Chloride () 1,000 mls @ 100 mls/hr IV .Q10H ONE Stop: 07/09/19 19:54 Insulin Detemir (Levemir Flextouch) 25 unit SQ BID [facility] Metoprolol Tartrate (Lopressor) 12.5 mg PO BID [facility] Multivitamins/Minerals (Centrum) 1 tab PO DAILY [facility] Physical Exam - Vital Signs Vital Signs: Vital Signs - Last 24 Hrs Temp Pulse Pulse Resp BP BP BP 07/09/19 10:05 98.1 F 88 16 184/68 07/09/19 09:58 92 H 18 153/79 07/09/19 07:37 99.5 F 88 18 139/74 Pulse Ox 07/09/19 10:05 98 07/09/19 09:58 97 07/09/19 07:37 97 - General General Appearance: Alert, Oriented x3, Cooperative, No acute distress Limitations: No limitations - Head Head exam: Atraumatic, Normocephalic, Normal inspection - Eye Eye exam: Normal appearance, PERRL. negative: Conjunctival injection, Scleral icterus - ENT ENT exam: Mucous membranes dry - Neck Neck exam: Normal inspection, Full ROM. negative: Lymphadenopathy - Respiratory Respiratory exam: Normal lung sounds bilaterally. negative: Respiratory distress - Cardiovascular Cardiovascular Exam: Regular rate, Normal rhythm, Normal heart sounds Peripheral Pulses: 2+: Radial (R), Radial (L) - GI/Abdominal GI/Abdominal exam: Soft, Normal bowel sounds. negative: Distended, Guarding, Rebound, Rigid, Tenderness - Rectal Rectal exam: Deferred - exam: Deferred - Extremities Extremities exam: Pedal edema (bilateral feet). negative: Normal inspection - Back Back exam: Denies: CVA tenderness (R), CVA tenderness (L) - Neurological Neurological exam: Alert, Oriented X3 - Psychiatric Psychiatric exam: Normal affect, Normal mood - Skin Skin exam: Erythema (LLE, surrounding open area) Distribution of rash: Other (Trunk) Description of rash: Macular Results - Labs Result Diagrams: 07/09/19 07:45 07/09/19 07:45 Labs Last 24 Hours: Laboratory Results - last 24 hr 07/09/19 07/09/19 07/09/19 07:45 07:45 07:45 WBC 6.5 RBC 2.72 L Hgb 8.5 L Hct 28.8 L MCV 105.9 H MCH 31.2 MCHC 29.5 L RDW 14.9 H Plt Count 198 MPV 10.6 H Gran % 58.0 Lymphocytes % 29.2 Monocytes % 12.3 H Eosinophils % 0.3 Basophils % 0.2 Absolute Neutrophils 3.76 PT 11.0 INR 1.1 APTT 30.2 Sodium 142 Potassium 4.5 Chloride 103 Carbon Dioxide 21.0 L Anion Gap 18.0 H BUN 51 H Creatinine 1.2 H Estimated GFR 46 Random Glucose 223 H Calcium 9.4 Total Bilirubin 0.50 AST 23 ALT 20 Alkaline Phosphatase 83 Troponin T Total Protein 8.0 Albumin 3.8 L Globulin 4.2 Albumin/Globulin Ratio 0.9 L TSH 5.08 H Urine Color Urine Appearance Urine pH Ur Specific [place] Urine Protein Urine Glucose (UA) Urine Ketones Urine Blood Urine Nitrite Urine Bilirubin Urine Urobilinogen Ur Leukocyte Esterase Urine RBC Urine WBC Ur Epithelial Cells 07/09/19 07/09/19 07:45 08:30 WBC RBC Hgb Hct MCV MCH MCHC RDW Plt Count MPV Gran % Lymphocytes % Monocytes % Eosinophils % Basophils % Absolute Neutrophils PT INR APTT Sodium Potassium Chloride Carbon Dioxide Anion Gap BUN Creatinine Estimated GFR Random Glucose Calcium Total Bilirubin AST ALT Alkaline Phosphatase Troponin T 0.030 H Total Protein Albumin Globulin Albumin/Globulin Ratio TSH Urine Color Yellow Urine Appearance Clear Urine pH 5.5 Ur Specific [place] 1.025 Urine Protein 30 mg/dl H Urine Glucose (UA) Negative Urine Ketones Negative Urine Blood Trace-i Urine Nitrite Negative Urine Bilirubin Negative Urine Urobilinogen 0.2 Ur Leukocyte Esterase Negative Urine RBC 0 - 2 Urine WBC None seen Ur Epithelial Cells None seen VTE H&P Assessment - Risk for VTE Risk for VTE: Yes Risk Level: High Risk Assessment Date: 07/09/19 Risk Assessment Time: 11:00 VTE Orders Placed or Will Be Placed: No VTE Reason for No Prophylaxis: Contraindicated (High fall risk) Plan - Inpatient Certification Inpatient Certification: Admit to inpatient care: Based on my medical assessment, after consideration of patient's risk factors (age, co-morbidities and patient presenting symptoms and acuity), I expect that this patient will remain in the hospital greater than or equal to two midnights and that the services needed warrant inpatient care because: Patient Risk Factors: [] Estimated length of stay: [] The patient may reasonably be expected to be discharged or transferred to a hospital within 96 hours after admission to [facility]. Services needed: [] Post hospital care (if known): [] I certify that my determination is in accordance with my understanding of Medicare requirements for reasonable and necessary inpatient services. - Detailed Diagnosis and Plan (1) Cellulitis of left lower extremity Current Visit: Yes Status: Acute Base Code: L03.116 - CELLULITIS OF LEFT LOWER LIMB Comment: 07/09/19 -Hx of skin tear to LLE, no showing s/sx of infection -Scant purulent drainage -Start Zyvox 600mg PO BID (2) Fall at home Current Visit: No Status: Acute Base Code: W19.XXXA - UNSPECIFIED FALL, INITIAL ENCOUNTER; Y92.009 - UNSP PLACE IN [facility] Comment: 07/09/19 -Fall 3 days ago at home -CT head: negative -Holding anticoagulation -Fall Precautions -PT/OT consult ordered (3) Weakness Current Visit: Yes Status: Acute Base Code: R53.1 - WEAKNESS Comment: 07/09/19 -Creatinine and Hgb at baseline -U/A Negative -Has been taking 5mg Flexeril daily d/t right sided musculoskeletal pain -DDx: LLE cellulitis vs. Flexeril use? -D/C Flexeril -Start Zyvox for Cellulitis -Obtain CXR to r/o acute process and also to evaluate right rib pain (4) Diabetes mellitus, type II Current Visit: No Status: Acute Qualifiers: Diabetes mellitus snf insulin use: with snf use Diabetes mellitus complication status: without complication Qualified Code(s): E11.9 - Type 2 diabetes mellitus without complications; Z79.4 - long-term (current) use of insulin Base Code: E11.9 - TYPE 2 DIABETES MELLITUS WITHOUT COMPLICATIONS Comment: 07/09/19 -BGL 223 -Continue Levemir 25 units BID -Holding home dose of Novolog 5 units with meals -Accuchecks AcHs, ADA diet (5) DVT prophylaxis Current Visit: No Status: Acute Base Code: [id number] - Comment: 07/09/19 -High fall risk and unresolved anemia -Risk of anticoagulation outweighs benefit -PT/OT ordered -Nursing to encourage frequent ambulation (6) DNR (do not resuscitate) Current Visit: Yes Status: Acute Base Code: Z66 - DO NOT RESUSCITATE Comment: 07/09/19 -DNR this admission
[2019-07-09] MEDS ORDERED: 0.9 % SODIUM CHLORIDE 500ML 500 ML IV ONE (10:59)
[2019-07-09] MEDS ORDERED: ACETAMINOPHEN 325 MG TAB PO SCH (11:15)
[2019-07-09] MEDS: ESCITALOPRAM 10 MG TABLET PO SCH (11:21)
[2019-07-09] MEDS: MULTIVITAMINS/MINERALS TABLET PO SCH (11:21)
[2019-07-09] MEDS: METOPROLOL TART 25 MG TABLET PO SCH ×2 (11:21→21:54)
[2019-07-09] MEDS: LEVEMIR FLEXTOUCH 100 UNIT/ML INSULIN PEN SQ SCH ×3 (11:22→21:58)
[2019-07-09] MEDS: LINEZOLID 600 MG TABLET PO SCH ×2 (11:23→21:54)
[2019-07-09] MEDS: LIDOCAINE 5% PATCH TOP SCH (11:23)
[2019-07-09] MEDS ORDERED: NOVOLOG FLEXPEN (INSULIN ASPART) 100 UNITS/ML SQ SCH (12:00)
--- NOTE | 2019-07-09 14:39 | Physical Therapy Tx Note ---
Physical Therapy Tx Note - Treatment Note Total Time Spent With Patient: 20 Physical Therapy Tx Note: Detail (Subjective information was taken from the patient. Patient refused to be seen for evaluation of strength and mobility.) Physical Therapy Plan: Patient will be seen for evaluation of strength and mobility.
--- NOTE | 2019-07-09 15:04 | Occupational Therapy Tx Note ---
Occupational Therapy Tx Note - Treatment Note Occupational Therapy Treatment Note: Detail (Attempted OT evaluation, pt re fusing to get OOB or perform evaluation tasks.)
[2019-07-09] MEDS ORDERED: ZINC OXIDE 28.35 GM TUBE TOP ONE (18:26)
[2019-07-09] MEDS: ACETAMINOPHEN 325 MG TAB PO SCH (21:54)
[2019-07-09 22:38] LABS: FERRITIN 555.7 ng/mL (13-150)
--- NOTE | 2019-07-10 05:34 | CT SCAN REPORT ---
EXAM: CT SCAN OF THE HEAD WITHOUT CONTRAST HISTORY: INCREASED LETHARGY. LOW GRADE FEVER. HISTORY OF FALL ON TUESDAY. TECHNIQUE: Standard CT imaging of the head was performed in the axial plane without contrast. Additional coronal and sagittal reformatted images were also performed. Comparison: 09/15/18. Encounter: Initial. Hand dominance: Right. FINDINGS: There is mild generalized atrophy. The ventricles and subarachnoid spaces are otherwise normal. Chronic small vessel ischemic changes are present within the periventricular and subcortical white matter of both cerebral hemispheres. There are stable old lacunar infarcts within the basal ganglia bilaterally. There is no mass, mass effect, intracranial hemorrhage, visible acute infarct, or abnormal extraaxial fluid. The skull is intact. The orbits, sinuses, and mastoids are normal. IMPRESSION: 1. NO ACUTE INTRACRANIAL ABNORMALITY. 2. STABLE ATROPHY AND CHRONIC SMALL VESSEL ISCHEMIC CHANGES. JOB NUMBER: [id number] MTDD
[2019-07-10] MEDS: ACETAMINOPHEN 325 MG TAB PO SCH ×2 (05:46→15:16)
--- NOTE | 2019-07-10 06:12 | RADIOLOGY REPORT ---
EXAM: PORTABLE CHEST HISTORY: RIGHT RIB PAIN. PRIOR RIGHT LUNG INJURY. TECHNIQUE: A single mobile upright view of the chest was obtained. Comparison: Two view chest radiographic examination dated 12/01/18. CT chest without contrast dated 09/15/18. FINDINGS: There is again noted right hemithorax volume loss with elevation of the right hemidiaphragm. Diffuse mixed lung opacities are again noted throughout the right lung with probable central air bronchograms. This pattern, given differences in technique is unchanged. There is persistent mild pleural stripe thickening as well. All of these findings could all relate to scarring, active inflammation cannot be excluded. Underlying mass would also be difficult to exclude. The left lung and pleural space remain grossly clear with the exception of minor linear scarring versus atelectasis in the left lung base. The heart is not enlarged and no pulmonary venous hypertension is seen. There are degenerative changes scattered within the visualized spine and shoulder girdles. IMPRESSION: 1. STABLE DIFFUSE RIGHT LUNG OPACITIES REDEMONSTRATED WITH ASSOCIATED HEMITHORAX VOLUME LOSS. THIS APPEARANCE IS STABLE SINCE 08/05/18 GIVEN DIFFERENCES IN TECHNIQUE. 2. NO EVIDENCE OF ACUTE ABNORMALITY IN THE LEFT LUNG WITH MINIMAL LINEAR SCARRING VERSUS ATELECTASIS IN THE LEFT BASE. JOB NUMBER: [id number] [facility]
[2019-07-10 07:13] LABS: HEMATOCRIT 26.8 % (35.0-47.0); MEAN CELL VOLUME 105.1 fl (81-97); MEAN CORPUSCULAR HGB CONC 29.9 g/dl (32-36); MEAN PLATELET VOLUME 10.7 fl (7.4-10.4); PLATELET COUNT 194 K/uL (130-400); RED BLOOD COUNT 2.55 M/uL (3.80-5.40); RED CELL DISTRIBUTION WIDTH 14.6 % (11.5-14.5); WHITE BLOOD COUNT W/O DIFF 5.4 K/uL (4.2-12.2)
[2019-07-10 07:24] LABS: MEAN CORPUSCULAR HEMOGLOBIN 31.3 pg (27-33)
--- NOTE | 2019-07-10 08:20 | Rehab Evaluation ---
Patient Information - Patient Information Diagnosis: weakness, deconditioning, dehyration, fall Ordered Treatment: OT Evaluate and Treat Status: Initial Evaluation Surgery: No Past Medical/Surgical Hx: PAST MEDICAL/SURGICAL HISTORY Past Surgical History skin on face, arms, back for skin cancer , bilateral cataracts PMH - Respiratory Hx Respiratory Disorders No Hx Pneumonia Yes PMH - Cardiovascular Hx Cardiovascular Disorders Yes Hx Congestive Heart Failure Yes Hx Hypertension Yes Hx Transient Ischemic Attacks Yes (TIA) Comment: high cholesterol PMH - Neuro Hx Neurological Disorders No Hx Transient Ischemic Attacks Yes (TIA) PMH - GI Hx Gastrointestinal Disorders No PMH - Hx Genitourinary Disorders No PMH - Endocrine Hx Endocrine Disorders Yes Hx Diabetes Yes PMH - Musculoskeletal Hx Musculoskeletal Disorders No Hx Arthritis Yes PMH - Psych Hx Psychiatric Problems No PMH - Hematology/Oncology Hx Hematology/Oncology No Disorders Hx Anemia Yes Hx Bruising Yes Hx Cancer Yes: skin Hx Chemotherapy No Hx Radiation Therapy No Premorbid Status: Detail (Pt lives with daughter in a one story house with basement. She has 5-6 steps at the entrance with 2 railings that are far apart. She has a walk in shower with a seat, grab bars and hand held shower and a standard height toilet with grab bars. She reports her daughter is responsible for all home mgmt, meal prep and laundry and she has a home health aide 2 times each week to assist her with showering. Pt reports she was Ind with oral hygiene and getting dressed each day. She ambulated with a 2 wheeled walker and used a cane on steps.) Precautions: Elizabeth, Fall - Time With Patient Total Time Spent With Patient (Min): 40 Treatment Procedures: Detail (OT eval low complexity) Subjective Information - Subjective Information Per Patient Objective Data - Pain Pain Present: No - Mental Status Patient Orientation: Person (Pt oriented to self, location, birthday and day of week. She stated her age as "almost 89" and month as "May".), Place - Visual Perception Appears within normal limits for therapeutic activities (Pt reports she wears glasses but she does not have them here.) - ROM Not within normal limits (Farhan shoulder flexion limited to approx. 80 degrees, farhan elbow, wrist and hand AROM WNL) - Strength/Tone Not within normal limits (Farhan shoulder flexion 3+/5 within AROM limitations, farhan elbow and bankruptcy legal assistant strength 4-/5) - Coordination Appears within normal limits for therapeutic activities - Bed Mobility Independent (Pt was able to perform supine to sit with hospital bed rails and verbal encouragement.) - Transfers Needs Assist (Min assist for sit to stand with walker from EOB.) - Balance Balance Sitting: Fair Balance Standing: Fair - Sensation Intact - Gait Detail (Pt able to ambulate several steps with 2 wheeled walker and CG assist.) - ADL's/IADL's Detail (Pt able to complete combing hair and brushing teeth with set up and verbal encouragement/cues. Pt able to eat Indly in wheelchair.) Therapy Assessment - Therapy Assessment Detail (Pt presents with very slowed movements, she does not c/o fatigue but does not appear highly motivated to move around on her own. She required verbal cues for grooming/hygiene and further self cares will need to be assessed.) Problem List - Problem List Occupational Therapy Problem List: Detail (1. Decreased Ind with functional mobility needed for self care tasks. 2. Decreased Ind with total body dressing tasks.) Goals - Goals Occupational Therapy Goals: 1. Pt will be Ind with transfers and ambulation needed to complete self care tasks. 2. Pt will be Ind with total body dressing. Prognosis - Prognosis Moderate Plan - Plan Physical Therapy Plan: Patient will be seen for evaluation of strength and mobility. Occupational Therapy Plan: OT 1-4 times each week until discharge to address functional mobility and self cares.
[2019-07-10 08:53] LABS: CREATININE 1.2 mg/dL (0.5-0.9)
[2019-07-10] MEDS: ESCITALOPRAM 10 MG TABLET PO SCH (09:36)
[2019-07-10] MEDS: MULTIVITAMINS/MINERALS TABLET PO SCH (09:36)
[2019-07-10] MEDS: METOPROLOL TART 25 MG TABLET PO SCH ×2 (09:36→18:57)
[2019-07-10] MEDS: LEVEMIR FLEXTOUCH 100 UNIT/ML INSULIN PEN SQ SCH (09:37)
[2019-07-10] MEDS: LINEZOLID 600 MG TABLET PO SCH (09:37)
--- NOTE | 2019-07-10 09:54 | Discharge Summary ---
Providers Discharge Summary Date: 07/10/19 Date of admission: 07/09/19 09:48 Attending physician: AMBER ENRIQUEZ Primary care physician: Scott Gu N.P. Consults: Consult Orders 07/09/19 12:02 Consult - Case Management NOW Comment: Reason For Exam: discharge planning Physical Exam - Vital Signs Vital Signs: Vital Signs - Last 24 Hrs Temp Pulse Resp BP BP Pulse Ox 07/10/19 08:57 98.1 F 81 16 128/67 98 07/10/19 02:00 98.4 F 82 16 112/55 96 07/09/19 21:00 16 07/09/19 18:17 88 16 07/09/19 18:00 99.4 F 81 16 161/77 100 07/09/19 10:05 98.1 F 88 16 184/68 98 07/09/19 09:58 92 H 18 153/79 97 - General General Appearance: Alert, Oriented x3, Cooperative, No acute distress Limitations: No limitations - Head Head exam: Atraumatic, Normocephalic, Normal inspection - Eye Eye exam: Normal appearance, PERRL. negative: Conjunctival injection, Scleral icterus - ENT ENT exam: Mucous membranes dry Ear exam: Normal external inspection Nasal Exam: Normal inspection Mouth exam: Normal external inspection Teeth exam: Normal inspection Throat exam: Normal inspection - Neck Neck exam: Normal inspection, Full ROM. negative: Lymphadenopathy - Respiratory Respiratory exam: Normal lung sounds bilaterally. negative: Respiratory distress - Cardiovascular Cardiovascular Exam: Regular rate, Normal rhythm, Normal heart sounds Peripheral Pulses: 2+: Radial (R), Radial (L) - GI/Abdominal GI/Abdominal exam: Soft, Normal bowel sounds. negative: Distended, Guarding, Rebound, Rigid, Tenderness - Rectal Rectal exam: Deferred - exam: Deferred - Extremities Extremities exam: Pedal edema (LLE anterior leg wound). negative: Normal inspection - Back Back exam: Denies: CVA tenderness (R), CVA tenderness (L) - Neurological Neurological exam: Alert, Oriented X3 - Psychiatric Psychiatric exam: Normal affect, Normal mood - Skin Skin exam: Erythema (LLE, surrounding open area) Distribution of rash: Other (Trunk) Description of rash: Macular Hospitalization - Hospitalization Admission Diagnosis: weakness, deconditioning, dehydration, fall - Problem List/Discharge Diagnosis (1) Cellulitis of left lower extremity Current Visit: Yes Status: Acute Base Code: L03.116 - CELLULITIS OF LEFT LOWER LIMB Comment: 07/10/19 -Hx of skin tear to LLE, no showing s/sx of infection -Scant purulent drainage -Start Zyvox 600mg PO BID (2) Weakness Current Visit: Yes Status: Acute Base Code: R53.1 - WEAKNESS Comment: 07/10/19 -Creatinine and Hgb at baseline -U/A Negative -Has been taking 5mg Flexeril daily d/t right sided musculoskeletal pain -DDx: LLE cellulitis vs. Flexeril use? -D/C Flexeril -Start Zyvox for Cellulitis -CXR negative for acute findings. (3) Acute on chronic anemia Current Visit: Yes Status: Acute Base Code: D64.9 - ANEMIA, UNSPECIFIED Comment: 07/10/19: - Baseline 8.5, hgb on admission 8. Fe 25, TIBC 215, Ferritin 555. - Start Fe supplementation. - No acute bleeding noted on this admission. 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 F who presented to [facility] E[facility] this morning d/t increasing weakness over 3-4 days. Lives with daughter, Kim, and is normally able to do most ADLs on her own. Has been receiving in home PT/OT 2 days per week. Daughter reported that she required assistance with getting dressed last night and is a little bit "slower" than her baseline. Pt stated she feels like she is in a fog. Was recently started on 2.5mg of Flexeril 1-2x/day d/t right sided rib/muscle pain. Daughter reported she has not been taking more than 5mg per day. Pain in right side has improved. Has had a slight decrease in eating and drinking. No fever, cough, SOB, diarrhea. PMHx: DMII, Hx of CVA, recurrent UTI, fluid overload PCP: Scott Gu NP ED Course -Vitals: T 97.6, HR 88, BP 139/74, RR 20, SpO2 97% on RA -Labs: Hgb 8.5, AG 18, Creatinine 1.2 (baseline), Trop 0.030, TSH 5.08 -Head CT: No acute process -U/A Negative 07/09/19 Vitals: T 98.1, HR 88, BP 184/68, RR 16, SpO2 98% on RA Pt lying in bed. Daughter at bedside. Pt alert and able to answer questions appropriately. Denied having any significant pain, still tenderness in right side after fall onto hand rail in the bathroom 4-5 weeks ago. Doesn't recall last BM but stated that they "havent been soft". Lesion to anterior side of LLE with surrounding erythema and warmth. This started as a skin tear in May that occurred from hitting her leg on the car door. Was last evaluated by PCP on 06/26/19 and there were no s/sx of infection noted. Assessment 07/10/19: Patient evaluated at bedside this morning and she is alert and responsive. The patient says that her leg pain has improved and she feels much better. She is being continued on Zyvox 600mg BID for the cellulitis and ulceration the left anterior lower extremity. Her white count has marginally normalized, her Hgb is at baseline of 8 and kidney function is stable. The patient is stable for discharge with follow up with her PCP within 1 week. Procedures: Imaging and X-Rays 07/09/19 07:51 HEAD WO CONTRAST [CT] Stat 07/09/19 10:58 CHEST 1 VIEW [RAD] Stat Cardiology Procedures 07/09/19 07:51 EKG NOW Abnormal Labs: Abnormal Lab Results 07/09/19 07/09/19 07/09/19 Range/Units 07:45 07:45 07:45 RBC 2.72 L (3.80-5.40) M/uL Hgb 8.5 L (11.6-16.0) gm/dl Hct 28.8 L (35.0-47.0) % MCV 105.9 H (81-97) fl MCHC 29.5 L (32-36) g/dl RDW 14.9 H (11.5-14.5) % MPV 10.6 H (7.4-10.4) fl Monocytes % 12.3 H (0-9) % Monocytes (0-9) % Potassium (3.4-4.5) mmol/L Carbon Dioxide 21.0 L (22-29) mmol/L Anion Gap 18.0 H (7-16) BUN 51 H (8-23) mg/dL Creatinine 1.2 H (0.5-0.9) mg/dL POC Glucose (70-110) mg/dL Random Glucose 223 H (74-109) mg/dL Iron (37-145) ug/dL % Saturation (20-50) % Ferritin (13-150) ng/mL Troponin T 0.030 H (0-0.010) ng/mL Albumin 3.8 L (4.0-5.0) g/dL Albumin/Globulin Ratio 0.9 L (1.1-1.8) TSH 5.08 H (0.270-4.20) uIU/mL Urine Protein (NEGATIVE) 07/09/19 07/09/19 07/09/19 Range/Units 08:30 11:34 16:47 RBC (3.80-5.40) M/uL Hgb (11.6-16.0) gm/dl Hct (35.0-47.0) % MCV (81-97) fl MCHC (32-36) g/dl RDW (11.5-14.5) % MPV (7.4-10.4) fl Monocytes % (0-9) % Monocytes (0-9) % Potassium (3.4-4.5) mmol/L Carbon Dioxide (22-29) mmol/L Anion Gap (7-16) BUN (8-23) mg/dL Creatinine (0.5-0.9) mg/dL POC Glucose 238 H 338 H (70-110) mg/dL Random Glucose (74-109) mg/dL Iron (37-145) ug/dL % Saturation (20-50) % Ferritin (13-150) ng/mL Troponin T (0-0.010) ng/mL Albumin (4.0-5.0) g/dL Albumin/Globulin Ratio (1.1-1.8) TSH (0.270-4.20) uIU/mL Urine Protein 30 mg/dl H (NEGATIVE) 07/09/19 07/09/19 07/10/19 Range/Units 21:50 Unknown 06:21 RBC 2.55 L (3.80-5.40) M/uL Hgb 8.0 L (11.6-16.0) gm/dl Hct 26.8 L (35.0-47.0) % MCV 105.1 H (81-97) fl MCHC 29.9 L (32-36) g/dl RDW 14.6 H (11.5-14.5) % MPV 10.7 H (7.4-10.4) fl Monocytes % (0-9) % Monocytes 15.0 H (0-9) % Potassium (3.4-4.5) mmol/L Carbon Dioxide (22-29) mmol/L Anion Gap (7-16) BUN (8-23) mg/dL Creatinine (0.5-0.9) mg/dL POC Glucose 399 H (70-110) mg/dL Random Glucose (74-109) mg/dL Iron 25 L (37-145) ug/dL % Saturation 11 L (20-50) % Ferritin 555.7 H (13-150) ng/mL Troponin T (0-0.010) ng/mL Albumin (4.0-5.0) g/dL Albumin/Globulin Ratio (1.1-1.8) TSH (0.270-4.20) uIU/mL Urine Protein (NEGATIVE) 07/10/19 07/10/19 Range/Units 06:21 08:00 RBC (3.80-5.40) M/uL Hgb (11.6-16.0) gm/dl Hct (35.0-47.0) % MCV (81-97) fl MCHC (32-36) g/dl RDW (11.5-14.5) % MPV (7.4-10.4) fl Monocytes % (0-9) % Monocytes (0-9) % Potassium 4.6 H (3.4-4.5) mmol/L Carbon Dioxide (22-29) mmol/L Anion Gap (7-16) BUN 43 H (8-23) mg/dL Creatinine 1.2 H (0.5-0.9) mg/dL POC Glucose 145 H (70-110) mg/dL Random Glucose 157 H (74-109) mg/dL Iron (37-145) ug/dL % Saturation (20-50) % Ferritin (13-150) ng/mL Troponin T (0-0.010) ng/mL Albumin (4.0-5.0) g/dL Albumin/Globulin Ratio (1.1-1.8) TSH (0.270-4.20) uIU/mL Urine Protein (NEGATIVE) Condition at Discharge: (2) Stable Discharge Medications - Discharge Medications Prescriptions: Bacitracin Zinc 14 gm TP DAILY #1 oint...g. Linezolid [Zyvox] 600 mg PO BID #11 tablet Home Medications: Ambulatory Orders Multivitamin/Iron/Folic Acid [Multi Complete-Iron Tablet] 1 tab PO QD tab 03/01/18 [Last Taken 1 Day Ago ~07/08/19] Vitamin B Complex Vit C No.4 [Super B Complex] 150 mg PO QHS tab 03/01/18 [Last Taken 1 Day Ago ~07/08/19] Acetaminophen [Tylenol 325Mg] 650 mg PO Q6H PRN tablet 12/04/18 [Last Taken 1 Day Ago ~07/08/19] Metoprolol Tartrate [Lopressor] 12.5 mg PO BID tab 12/04/18 [Last Taken 1 Day Ago ~07/08/19] Bacitracin Zinc 14 gm TP DAILY #1 oint...g. 07/10/19 [Last Taken Unknown] Ferrous Sulfate 325 mg PO BID #0 07/10/19 [Last Taken Unknown] Linezolid [Zyvox] 600 mg PO BID #11 tablet 07/10/19 [Last Taken Unknown] Discharge Plan - Discharge Instructions Additional Instructions: Apply Bacitracin daily after shower and before applying dressing. Take Zyvox 600mg twice daily for the next 5 days. Resume taking Iron tabs twice daily. Follow up appointment with Scott Gu NP on Jul 23 at 3:40pm, [facility]. Quality Measures - Quality Measures Quality Measures: Atrial Fibrillation & Atrial Flutter: Chronic Anticoagulation Therapy, Advance Directives, Documentation of Current Medications in Medical Record, Elder Maltreatment Screen and Follow-Up Plan, Heart Failure, Screening for High Blood Pressure and F/U Documented - Current Medications Quality Measure: Measure #130: Documentation of Current Medications Documentation of Current Medications: <Current Medications Documented/Reviewed> [G1559] - Blood Pressure Screening Quality Measure: Screening for High Blood Pressure and Follow-Up Documented Does Patient Have Any of the Following: Active Dx of HTN Blood Pressure Classification: Pre-Hypertensive BP Reading Systolic Measurement: 139 Diastolic Measurement: 74 Screening for High Blood Pressure: Patient Exclusion, Hx of HTN [G9744] - Atrial Fibrillation and Atrial Flutter Quality Measure: Atrial Fibrillation & Atrial Flutter: Chronic Anticoagulation Therapy Does Patient Have Any of the Following: No CHADS2 Risk Stratification: Prior Stroke/TIA or Systemic Embolism, Age 75 or Greater, Hypertension, Diabetes Mellitus, Heart Failure or Impaired LVSF Risk Stratification Summary: One or more high risk factors OR more than one moderate risk factor exists. [G8972] Anticoagulation Therapy: <Oral anticoagulant Prescribed> [G8967] Medical Reason for NOT Prescribing Anticoagulant: Risk of Bleeding - Heart Failure (ELIUD/ARB Therapy) Quality Measure: Heart Failure Left Ventricular Systolic Function: Unknown ELIUD Inhibitor or ARB Therapy for LVSD: Not Eligible - Heart Failure (Beta-jerod Therapy) Quality Measure: Heart Failure Left Ventricular Systolic Function: Unknown Beta-Jerod Therapy for LVEF < 40%: Not Eligible - Advance Directives Quality Measure: Measure #47: Care Plan Advance Directives Established: Yes Advance Directives Information Provided To Patient: Already Provided Advance Directives on File: Yes Living Will: Yes Power of Certified Histologic Technician: Yes Power of Certified Histologic Technician Name: kim peck [id number] Advance Care Planning: <Care Plan/Decision Maker Not Decided; Discussed & Documented> [1124F] - Elder Abuse Suspicion Index Screening: Elder Abuse Suspicion Index Screening Rely on people for bathing, dressing, shopping, banking, etc: Yes Prevented from getting food, clothes, medication, etc: No Made to feel shamed or threatened by someone: No Forced to sign papers or use money against will: No Feel afraid, touched in ways not wanted or hurt physically: No Poor eye contact, withdrawn, malnourished, cuts or bruises: No Screening Result: Negative result EASI Reference Information: Concepcion PLUNKETT, Florencio C, Heather Hawthorne, Vicky Sethi.Development and validation of a tool to assist physicians identification of elder abuse: The Elder Abuse Suspicion Index (EASI ). Journal of Elder Abuse and Neglect, 2008; 20 (3): 276-300. - Elder Maltreatment Screen Quality Measures: Elder Maltreatment Screen and Follow-Up Plan Elder Maltreatment Screen: <Negative, No Follow-Up Plan Required> [G6223]
--- NOTE | 2019-07-10 09:55 | Rehab Evaluation ---
Patient Information - Patient Information Diagnosis: weakness, deconditioning, dehyration, fall Ordered Treatment: PT Evaluate and Treat Status: Initial Evaluation Surgery: No Past Medical/Surgical Hx: PAST MEDICAL/SURGICAL HISTORY Past Surgical History skin on face, arms, back for skin cancer , bilateral cataracts PMH - Respiratory Hx Respiratory Disorders No Hx Pneumonia Yes PMH - Cardiovascular Hx Cardiovascular Disorders Yes Hx Congestive Heart Failure Yes Hx Hypertension Yes Hx Transient Ischemic Attacks Yes (TIA) Comment: high cholesterol PMH - Neuro Hx Neurological Disorders No Hx Transient Ischemic Attacks Yes (TIA) PMH - GI Hx Gastrointestinal Disorders No PMH - Hx Genitourinary Disorders No PMH - Endocrine Hx Endocrine Disorders Yes Hx Diabetes Yes PMH - Musculoskeletal Hx Musculoskeletal Disorders No Hx Arthritis Yes PMH - Psych Hx Psychiatric Problems No PMH - Hematology/Oncology Hx Hematology/Oncology No Disorders Hx Anemia Yes Hx Bruising Yes Hx Cancer Yes: skin Hx Chemotherapy No Hx Radiation Therapy No Premorbid Status: Detail (Pt lives with daughter in a one story house with basement. She has 5-6 steps at the entrance with 2 railings that are far apart. She has a walk in shower with a seat, grab bars and hand held shower and a standard height toilet with grab bars. She reports her daughter is responsible for all home mgmt, meal prep and laundry and she has a home health aide 2 times each week to assist her with showering. Pt reports she was Ind with oral hygiene and getting dressed each day. She ambulated with a 2 wheeled walker and used a cane on steps.) Precautions: [place], Fall - Time With Patient Total Time Spent With Patient (Min): 30 Treatment Procedures: Detail (Initial evaluation; low complexity The patient was left in a wheelchair with the call light and bedside table within reach. The nursing staff was in the room with her following the evaluation.) Subjective Information - Subjective Information Per Patient (Patient stated that she felt groggy this morning and a little painful after going through the examination procedures.) Objective Data - Pain Pain Present: Yes - Mental Status Patient Orientation: Person (Patient was able to identify herself and her birthdate but did not correctly identify her age.), Place (Patient was able to identify the correct name of the hospital.), Time (Patient identfied the correct day of the week but stated that the month was May and was unsure of the current president's name.) - Visual Perception Appears within normal limits for therapeutic activities - ROM Not within normal limits (Bilateral hip and knee AROM is within normal limits for functional activities. Bilateral ankle AROM is within functional limits.) - Strength/Tone Not within normal limits (Tested in sitting: R hip flexion 3+/5, L hip flexion 4/5, bilateral hip abduction 4/5, bilateral hip adduction 4/5, bilateral knee flexion and extension 4/5, bilateral ankle dorsiflexion 4/5) - Coordination Appears within normal limits for therapeutic activities - Bed Mobility Needs Assist (Bed mobility was not assessed at the time of the evaluation due to patient being in the bedside chair and not wanting to return to bed following gait evaluation.) - Transfers Independent (Patient was independent in sit to stand and stand to sit transfers. During sit to stand, patient needed multiple attemps to rise from the chair.) - Balance Balance Sitting: Good Balance Standing: Good - Sensation Intact - Gait Detail (Patient ambulated 10 feet with a front wheeled walker with contact guard assistance over smooth surfaces. She ambulated with a shuffling gait pattern with decreased gait speed.) Therapy Assessment - Therapy Assessment Detail (Patient presents with gait abnormalities and LE weakness that make her a good candidate for inpatient rehab services. She was limited in her activities due to feeling groggy. Home therapy services would be beneficial for the patient to help her return to her prior functional level.) Problem List - Problem List Physical Therapy Problem List: Detail (1. Pain 2. Decreased LE strength 3. Gait abnormalities 4. Decreased tolerance for stairs) Occupational Therapy Problem List: Detail (1. Decreased Ind with functional mobility needed for self care tasks. 2. Decreased Ind with total body dressing tasks.) Goals - Goals Physical Therapy Goals: 1. Patient will be able to ambulate household distances independently with a front-wheeled walker to get around her home for ADLs. 2. Patient will be able to ascend and descend 5 stairs with supervision to get in and out of her home. Occupational Therapy Goals: 1. Pt will be Ind with transfers and ambulation needed to complete self care tasks. 2. Pt will be Ind with total body dressing. Plan - Plan Physical Therapy Plan: Patient will be seen 1-2x a day, M-F, during her inpatient stay. Therapy services will include therapeutic activities, therapeutic exercises, gait training, and stair training. Home therapy services are recommended following discharge. Occupational Therapy Plan: OT 1-4 times each week until discharge to address functional mobility and self cares.
[2019-07-10] MEDS ORDERED: ATORVASTATIN 20 MG TABLET PO SCH (10:00)
[2019-07-10] MEDS ORDERED: FERROUS SULFATE 325 MG TAB PO SCH (10:15)
[2019-07-10] MEDS ORDERED: ZINC OXIDE 28.35 GM TUBE TOP PRN (10:20)
[2019-07-10] MEDS: LIDOCAINE 5% PATCH TOP SCH (10:45)
[2019-07-10] MEDS ORDERED: CALCIUM CARBONATE 500 MG TAB.CHEW PO PRN (18:13)
== END 2019-07-10 19:20 | disposition home health service (06) ==
LOC: ER 07:35 → INTOOBSV 09:48 → MEDSURG 09:48
PROVIDERS: ADMIT Internal Medicine; ATTEND Internal Medicine
DX: R53.1 Weakness (principal); N28.9 Disorder of kidney and ureter, unspecified; R73.9 Hyperglycemia, unspecified; D53.9 Nutritional anemia, unspecified; E86.0 Dehydration; L03.116 Cellulitis of left lower limb; I50.9 Heart failure, unspecified; I10 Essential (primary) hypertension; E78.00 Pure hypercholesterolemia, unspecified; E11.9 Type 2 diabetes mellitus without complications; Z79.4 Long term (current) use of insulin; G45.9 Transient cerebral ischemic attack, unspecified; M19.90 Unspecified osteoarthritis, unspecified site; Z66 Do not resuscitate; Z85.828 Personal history of other malignant neoplasm of skin; W19.XXXA Unspecified fall, initial encounter; Z86.73 Personal history of transient ischemic attack (TIA), and cerebral infarction without residual deficits
CPT/HCPCS: 36416; 70450; 71045; 80048; 80053; 81001; 82728; 82948; 83550; 84443; 84484; 85025; 85027; 85610; 85730; 93005; 93010; 99217; 99220; 99285; J7040

== ENCOUNTER 2019-10-26 22:43 | Inpatient (IN) | payer BC ==
--- NOTE | 2019-10-26 23:09 | Emergency Department Record ---
History of Present Illness - General Chief complaint: Fatigue and Weakness Stated complaint: WEAKNESS Time Seen by Provider: 10/26/19 22:54 Source: Patient, Family Mode of Arrival: Ambulatory Limitations: No limitations - History of Present Illness Initial comments: The patient is here with her daughter due to generalized weakness at home for the past 2-3 days. She has had some loose stools and fatigue with a slightly decreased appetite. The patient has a long hx of similar issues. The patient has had no fever, chills, dysuria, Cp, SOB, BAILEY or LOTT's. The daughter also denies any recent falls or any trauma or injury. MD Complaint: Generalized weakness Onset/Timin -: Days(s) Location: Generalized Severity: Mild Consistency: Intermittent Improves with: None Worsens with: None Associated Symptoms: Denies other symptoms - [place]ak Coma Scale Eye Response: (4) Open spontaneously Motor Response: (6) Obeys commands Verbal Response: (5) Oriented [place] Total: 15 - Related Data Home Medications Medication Instructions Recorded Confirmed Last Taken Glucosamine HCl 1 tab PO DAILY 10/26/19 10/26/19 Unknown Turmeric 1 tab PO BID 10/26/19 10/26/19 Unknown Previous Rx's Medication Instructions Recorded Acetaminophen [Tylenol 325Mg] 650 mg PO Q6H PRN tablet 12/04/18 Ferrous Sulfate 325 mg PO BID #0 07/10/19 Allergies Allergy/AdvReac Type Severity Reaction Status Date / Time aspirin AdvReac nose bleed Verified 07/17/19 18:38 Travel Screening - Travel/Exposure Within Last 30 Days Have you traveled within the last 30 days?: No - Travel/Exposure Within Last Year Have you traveled outside the [place] in the last year?: No - Additonal Travel Details Have you been exposed to anyone with a communicable illness?: No - Travel Symptoms Symptom Screening: Fatigue, Diarrhea Review of Systems Constitutional: Reports: Malaise. Denies: Chills, Fever Eyes: Denies: Eye discharge ENT: Denies: Congestion Respiratory: Denies: Cough, Dyspnea Cardiovascular: Denies: Chest pain Endocrine: Reports: Fatigue Gastrointestinal: Reports: Diarrhea. Denies: Nausea Genitourinary: Denies: Dysuria Musculoskeletal: Denies: Arthralgia Skin: Denies: Bruising Past Medical History - SOCIAL HISTORY Smoking Status: Never smoker Alcohol Use: None Drug Use: None - RESPIRATORY Hx Respiratory Disorders: No Hx Pneumonia: Yes - CARDIOVASCULAR Hx Cardio Disorders: Yes Hx CHF: Yes Hx Hypertension: Yes Comment:: high cholesterol - NEURO Hx Neuro Disorders: No Hx TIA: Yes - GI Hx GI Disorders: No - Hx Genitourinary Disorders: No - ENDOCRINE Hx Endocrine Disorders: Yes Hx Diabetes: Yes - MUSCULOSKELETAL Hx Musculoskeletal Disorders: No Hx Arthritis: Yes - PSYCH Hx Psych Problems: No - HEMATOLOGY/ONCOLOGY Hx Hematology/Oncology Disorders: Yes Hx Anemia: Yes Hx Cancer: Yes (skin) Hx Chemotherapy: No Hx Radiation Therapy: No Family Medical History Any Significant Family History?: No Hx Cancer: Brother/Sister Hx Heart Disease: Father, Mother Physical Exam - General General Appearance: Alert, Oriented x3, Cooperative, No acute distress - Head Head exam: Atraumatic, Normocephalic - Eye Eye exam: Normal appearance, PERRL - ENT Throat exam: Normal inspection. negative: Tonsillar erythema, Tonsillar exudate - Neck Neck exam: Normal inspection, Full ROM. negative: Lymphadenopathy, Meningismus, Tenderness - Respiratory Respiratory exam: Normal lung sounds bilaterally. negative: Respiratory distress - Cardiovascular Cardiovascular Exam: Regular rate, Normal rhythm, Normal heart sounds - GI/Abdominal GI/Abdominal exam: Soft, Normal bowel sounds. negative: Tenderness - Extremities Extremities exam: Normal inspection, Full ROM, Normal capillary refill. negative: Tenderness - Neurological Neurological exam: Alert. negative: Motor sensory deficit - Skin Skin exam: negative: Rash Course Vital Signs 10/26/19 22:44 Temperature 97.8 F Pulse Rate 87 Respiratory 20 Rate Blood Pressure 130/73 Pulse Ox 99 - Reevaluation(s) Reevaluation #1: The patient is doing OK at this time. She denies any pain or discomfort. I did explain to her that her recent illness has made her significantly dehydrated to the extent she will need hospital admission for hydration and recheck of her lab work. The patient does agree with the plan. 10/26/19 23:57 Medical Decision Making - Data Complexity MDM Data: Labs Ordered and/or Reviewed, EKG Ordered and/or Reviewed - Lab Data Result diagrams: 10/26/19 23:00 10/26/19 23:00 - EKG Data -: EKG Interpreted by Me EKG: No Acute Changes, Unchanged From Previous Disposition Disposition: Admit Clinical Impression: Renal insufficiency, Dehydration Disposition: Still a Patient at [facility] Decision to Admit: Admit from ER Decision to Admit Date: 10/27/19 Decision to Admit Time: 00:01 Accepting Physician: Virginie Time Discussed w/Accepting Physician: 00:01 Condition: (2) Stable Forms: Patient Portal Access Time of Disposition: 00:01 Quality - Quality Measures Quality Measures: N/A - Blood Pressure Screening View Details: Yes Does Patient Have Any of the Following: No Blood Pressure Classification: Pre-Hypertensive BP Reading Systolic Measurement: 130 Diastolic Measurement: 73 Screening for High Blood Pressure: < Pre-Hypertensive BP, F/U Documented > [G8950] Pre-Hypertensive Follow-up Interventions: Referral to alternative/primary care provider.
[2019-10-26 23:10] LABS: ABSOLUTE NEUTROPHIL COUNT 3.88; HEMATOCRIT 33.2 % (35.0-47.0); HEMOGLOBIN 9.9 gm/dl (11.6-16.0); MEAN CELL VOLUME 109.6 fl (81-97); MEAN CORPUSCULAR HGB CONC 29.8 g/dl (32-36); MEAN PLATELET VOLUME 10.6 fl (7.4-10.4); PLATELET COUNT 222 K/uL (130-400); RED BLOOD COUNT 3.03 M/uL (3.80-5.40); RED CELL DISTRIBUTION WIDTH 15.6 % (11.5-14.5); WHITE BLOOD COUNT W/O DIFF 7.1 K/uL (4.2-12.2)
[2019-10-26 23:11] LABS: MEAN CORPUSCULAR HEMOGLOBIN 32.6 pg (27-33)
[2019-10-26] MEDS: 0.9 % SODIUM CHLORIDE 1,000 ML BAG IV ONE (23:18)
[2019-10-26 23:24] LABS: BILIRUBIN,TOTAL 0.5 mg/dL (0.2-1.0); CREATININE 1.5 mg/dL (0.5-0.9)
[2019-10-26 23:25] LABS: TOTAL PROTEIN 8.9 g/dL (6.6-8.7)
[2019-10-26 23:30] LABS: ALB/GLOB RATIO 0.7 (1.1-1.8); ALBUMIN 3.8 g/dL (4.0-5.0)
[2019-10-26 23:41] LABS: THYROID STIMULATING HORMONE 5.58 uIU/mL (0.270-4.20)
[2019-10-26 23:45] LABS: URINE APPEARANCE CLEAR; URINE BILIRUBIN NEGATIVE (NEGATIVE); URINE BLOOD TRACE-I (NEGATIVE); URINE COLOR YELLOW; URINE GLUCOSE (UA) NEGATIVE (NEGATIVE); URINE KETONE NEGATIVE (NEGATIVE); URINE LEUKOCYTE ESTERASE NEGATIVE (NEGATIVE); URINE NITRITE NEGATIVE (NEGATIVE); URINE PROTEIN TRACE (NEGATIVE); URINE UROBILINOGEN 0.2 E.U./dL (0.20 - 1.00)
[2019-10-26 23:53] LABS: URINE BACTERIA FEW; URINE EPITHELIAL CELLS 0 - 2 (FEW); URINE RBC 0 - 2 (NONE SEEN); URINE WBC 0 - 2 (0-2/hpf)
[2019-10-26 23:54] LABS: URINE MUCUS LIGHT
[2019-10-27] MEDS ORDERED: 0.9 % SODIUM CHLORIDE 1000ML 1,000 ML IV ONE (00:39)
[2019-10-27] MEDS ORDERED: ACETAMINOPHEN 325 MG TAB PO PRN (00:39)
[2019-10-27] MEDS: 0.9 % SODIUM CHLORIDE 1,000 ML BAG IV ONE (00:50)
[2019-10-27] MEDS: LORATADINE 10 MG TABLET PO SCH ×2 (01:00→22:04)
[2019-10-27] MEDS ORDERED: ZINC OXIDE 28.35 GM TUBE TOP ONE (06:33)
[2019-10-27] MEDS ORDERED: ZINC OXIDE 28.35 GM TUBE TOP PRN (07:57)
--- NOTE | 2019-10-27 08:07 | History & Physical ---
History of Present Illness - Date of Service Date of Service for History & Physical: 10/27/19 - History of Present Illness Admitting Diagnosis: 1. Acute Dehydration with Renal Failure. History of Present Illness: The patient is here with her daughter due to generalized weakness at home for the past 2-3 days. She has had some loose stools and fatigue with a slightly decreased appetite. The patient has a long hx of similar issues. The patient has had no fever, chills, dysuria, Cp, SOB, BAILEY or LOTT's. The daughter also denies any recent falls or any trauma or injury. ED work up consistent with dehydration likely 2nd GI losses and JAMILA. Baseline renal function unknown at this time. PCP: Significant ED findings: EKG- NSR, unchanged from previous - K 6.1 - AG 17 - BUN/Cr 75/1.5 - Troponin 0.015 - UA unremarkable - Hgb 9.9, MCV 109.6 - TSH 5.58 PAST MEDICAL/SURGICAL HISTORY Past Surgical History skin on face, arms, back for skin cancer bilateral cataracts PMH - Respiratory Hx Respiratory Disorders Yes Hx Pneumonia Yes PMH - Cardiovascular Hx Cardiovascular Disorders Yes Hx Congestive Heart Failure Yes Hx Hypertension Yes Hx Irregular Heartbeat Yes Hx Transient Ischemic Attacks Yes (TIA) Comment: high cholesterol PMH - Neuro Hx Neurological Disorders No Hx Cerebrovascular Accident Yes: 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) PMH - GI Hx Gastrointestinal Disorders Yes Comment: currently has external hemmorhoid with intermittent bleeding PMH - Hx Genitourinary Disorders Yes Hx Renal Disease Yes: CKD Hx Urinary Tract Infection Yes PMH - Endocrine Hx Endocrine Disorders Yes Hx Diabetes Yes: IDDM type 2 Hx Thyroid Disease No PMH - Musculoskeletal Hx Musculoskeletal Disorders No Hx Arthritis Yes PMH - Psych Hx Psychiatric Problems Yes Hx Depression Yes: taking Lexapro PMH - Hematology/Oncology Hx Hematology/Oncology Yes Disorders Hx Anemia Yes Hx Bruising Yes Hx Cancer Yes: skin Hx Chemotherapy No Hx Radiation Therapy No Laboratory Results WBC 7.1 K/uL (4.2-12.2) 10/26/19 23:00 RBC 3.03 M/uL (3.80-5.40) L 10/26/19 23:00 Hgb 9.9 gm/dl (11.6-16.0) L 10/26/19 23:00 Hct 33.2 % (35.0-47.0) L 10/26/19 23:00 MCV 109.6 fl (81-97) H 10/26/19 23:00 MCH 32.6 pg (27-33) 10/26/19 23:00 MCHC 29.8 g/dl (32-36) L 10/26/19 23:00 RDW 15.6 % (11.5-14.5) H 10/26/19 23:00 Plt Count 222 K/uL (130-400) 10/26/19 23:00 MPV 10.6 fl (7.4-10.4) H 10/26/19 23:00 Neutrophils % 50.0 % (47-80) 10/26/19 23:00 Band Neutrophils % 2.0 % (0-5) 10/26/19 23:00 Eosinophils % Not Reportable 10/26/19 23:00 Basophils % Not Reportable 10/26/19 23:00 Absolute Neutrophils 3.88 10/26/19 23:00 Lymphocytes 37.0 % (16-45) 10/26/19 23:00 Monocytes 10.0 % (0-9) H 10/26/19 23:00 Metamyelocytes 1.0 % 10/26/19 23:00 Macrocytosis 1+ 10/26/19 23:00 PT Cancelled 10/26/19 22:59 INR Cancelled 10/26/19 22:59 APTT Cancelled 10/26/19 22:59 Sodium 139 mmol/L (136-145) 10/26/19 23:00 Potassium 6.1 mmol/L (3.4-4.5) H* 10/26/19 23:00 Chloride 109 mmol/L (98-107) H 10/26/19 23:00 Carbon Dioxide 13.0 mmol/L (22-29) L 10/26/19 23:00 Anion Gap 17.0 (7-16) H 10/26/19 23:00 BUN 75 mg/dL (8-23) H 10/26/19 23:00 Creatinine 1.5 mg/dL (0.5-0.9) H 10/26/19 23:00 Estimated GFR 35 mL/min 10/26/19 23:00 Random Glucose 131 mg/dL (74-109) H 10/26/19 23:00 Calcium 9.6 mg/dL (8.8-10.2) 10/26/19 23:00 Total Bilirubin 0.50 mg/dL (0.2-1.0) 10/26/19 23:00 AST 29 U/L (10.0-35.0) 10/26/19 23:00 ALT 17 U/L (<33) 10/26/19 23:00 Alkaline Phosphatase 70 U/L (35-104) 10/26/19 23:00 Troponin T 0.015 ng/mL (0-0.010) H 10/26/19 23:00 Total Protein 8.9 g/dL (6.6-8.7) H 10/26/19 23:00 Albumin 3.8 g/dL (4.0-5.0) L 10/26/19 23:00 Globulin 5.1 gm/dL (1.4-4.8) H 10/26/19 23:00 Albumin/Globulin Ratio 0.7 (1.1-1.8) L 10/26/19 23:00 TSH 5.58 uIU/mL (0.270-4.20) H 10/26/19 23:00 Urine Color Yellow 10/26/19 23:40 Urine Appearance Clear 10/26/19 23:40 Urine pH 5.5 (5.0-8.0) 10/26/19 23:40 Ur Specific [place] 1.020 (1.002-1.030) 10/26/19 23:40 Urine Protein Trace (NEGATIVE) H 10/26/19 23:40 Urine Glucose (UA) Negative (NEGATIVE) 10/26/19 23:40 Urine Ketones Negative (NEGATIVE) 10/26/19 23:40 Urine Blood Trace-i (NEGATIVE) 10/26/19 23:40 Urine Nitrite Negative (NEGATIVE) 10/26/19 23:40 Urine Bilirubin Negative (NEGATIVE) 10/26/19 23:40 Urine Urobilinogen 0.2 E.U./dL (0.20 - 1.00) 10/26/19 23:40 Ur Leukocyte Esterase Negative (NEGATIVE) 10/26/19 23:40 Urine RBC 0 - 2 (NONE SEEN) 10/26/19 23:40 Urine WBC 0 - 2 (0-2/hpf) 10/26/19 23:40 Ur Epithelial Cells 0 - 2 (FEW) 10/26/19 23:40 Urine Bacteria Few 10/26/19 23:40 Urine Mucus Light 10/26/19 23:40 Vital Signs - Last 24 Hrs Temp Pulse Pulse Resp BP BP Pulse Ox 10/27/19 08:00 97.5 F L 79 15 149/72 98 10/27/19 06:28 97.4 F L 80 17 161/84 98 10/27/19 00:40 97.4 F L 82 14 134/106 99 10/26/19 22:44 97.8 F 87 20 130/73 99 Travel Screening - Travel/Exposure Within Last 30 Days Have you traveled within the last 30 days?: No - Travel/Exposure Within Last Year Have you traveled outside the [place] in the last year?: No - Additonal Travel Details Have you been exposed to anyone with a communicable illness?: No - Travel Symptoms Symptom Screening: Weakness, Fatigue, Diarrhea, Lack of Appetite Review of Systems Constitutional: Reports: Malaise. Denies: Chills, Fever Eyes: Denies: Eye discharge ENT: Denies: Congestion Respiratory: Denies: Cough, Dyspnea Cardiovascular: Denies: Chest pain Endocrine: Reports: Fatigue Gastrointestinal: Reports: Diarrhea. Denies: Nausea Genitourinary: Denies: Dysuria Musculoskeletal: Denies: Arthralgia Skin: Denies: Bruising Past Medical History - SOCIAL HISTORY Smoking Status: Never smoker Alcohol Use: None Drug Use: None - RESPIRATORY Hx Respiratory Disorders: Yes Hx Pneumonia: Yes - CARDIOVASCULAR Hx Cardio Disorders: Yes Hx CHF: Yes Hx Hypertension: Yes Hx Irregular Heartbeat: Yes Comment:: high cholesterol - NEURO Hx Neuro Disorders: No Hx CVA: Yes (basal ganglia infarction 2018) Hx TIA: Yes - GI Hx GI Disorders: Yes Comment:: currently has external hemmorhoid with intermittent bleeding - Hx Genitourinary Disorders: Yes Hx Renal Disease: Yes (CKD) Hx UTI: Yes - ENDOCRINE Hx Endocrine Disorders: Yes Hx Diabetes: Yes (IDDM type 2) Hx Thyroid Disease: No - MUSCULOSKELETAL Hx Musculoskeletal Disorders: No Hx Arthritis: Yes - PSYCH Hx Psych Problems: Yes Hx Depression: Yes (taking Lexapro) - HEMATOLOGY/ONCOLOGY Hx Hematology/Oncology Disorders: Yes Hx Anemia: Yes Hx Cancer: Yes (skin) Hx Chemotherapy: No Hx Radiation Therapy: No Family Medical History Any Significant Family History?: Yes Hx Cancer: Brother/Sister Hx Heart Disease: Father, Mother H&P Meds/Allergies - Allergies Allergies: Allergies Allergy/AdvReac Type Severity Reaction Status Date / Time aspirin AdvReac nose bleed Verified 07/17/19 18:38 - Home Medications Home Medications Medication Instructions Recorded Confirmed Last Taken Glucosamine HCl 1 tab PO DAILY 10/26/19 10/26/19 Unknown Turmeric 1 tab PO BID 10/26/19 10/26/19 Unknown Previous Rx's Medication Instructions Recorded Acetaminophen [Tylenol 325Mg] 650 mg PO Q6H PRN tablet 12/04/18 Ferrous Sulfate 325 mg PO BID #0 07/10/19 - Active Medications Active Medications: Current Medications Acetaminophen (Tylenol 325mg) 650 mg PO Q6H PRN PRN Reason: PAIN - MILD(1-4)/FEVER Escitalopram Oxalate (Lexapro) 10 mg PO DAILY [facility] Sodium Chloride () 1,000 mls @ 125 mls/hr IV .Q8H ONE Stop: 10/27/19 08:38 Last Admin: 10/27/19 04:45 Dose: 125 mls/hr Documented by: Insulin Aspart (Novolog Flexpen) 5 unit SQ 0800,1200,1730,2200 [facility] Insulin Detemir (Levemir Flextouch) 25 unit SQ BID [facility] Loratadine (Claritin) 10 mg PO QD [facility] Last Admin: 10/27/19 01:00 Dose: Not Given Documented by: Simvastatin (Zocor) 20 mg PO QHS [facility] Zinc Oxide (Desitin) 28.35 gm TOP BID PRN PRN Reason: Skin Irritation Physical Exam - Vital Signs Vital Signs: Vital Signs - Last 24 Hrs Temp Pulse Pulse Resp BP BP Pulse Ox 10/27/19 08:00 97.5 F L 79 15 149/72 98 10/27/19 06:28 97.4 F L 80 17 161/84 98 10/27/19 00:40 97.4 F L 82 14 134/106 99 10/26/19 22:44 97.8 F 87 20 130/73 99 - General General Appearance: Alert, Oriented x3, Cooperative, No acute distress Limitations: No limitations - Head Head exam: Atraumatic, Normocephalic - Eye Eye exam: Normal appearance, PERRL - ENT Throat exam: Normal inspection. negative: Tonsillar erythema, Tonsillar exudate - Neck Neck exam: Normal inspection, Full ROM. negative: Lymphadenopathy, Meningismus, Tenderness - Respiratory Respiratory exam: Normal lung sounds bilaterally. negative: Respiratory distress - Cardiovascular Cardiovascular Exam: Regular rate, Normal rhythm, Normal heart sounds - GI/Abdominal GI/Abdominal exam: Soft, Normal bowel sounds. negative: Tenderness - Extremities Extremities exam: Normal inspection, Full ROM, Normal capillary refill. negative: Tenderness - Neurological Neurological exam: Alert. negative: Motor sensory deficit - Skin Skin exam: negative: Rash Results - Labs Result Diagrams: 10/27/19 08:52 10/27/19 08:55 Labs Last 24 Hours: Laboratory Results - last 24 hr 10/26/19 10/26/19 10/26/19 22:59 23:00 23:00 WBC 7.1 RBC 3.03 L Hgb 9.9 L Hct 33.2 L MCV 109.6 H MCH 32.6 MCHC 29.8 L RDW 15.6 H Plt Count 222 MPV 10.6 H Neutrophils % 50.0 Band Neutrophils % 2.0 Eosinophils % Not Reportable Basophils % Not Reportable Absolute Neutrophils 3.88 Lymphocytes 37.0 Monocytes 10.0 H Metamyelocytes 1.0 Macrocytosis 1+ PT Cancelled INR Cancelled APTT Cancelled Sodium 139 Potassium 6.1 H* Chloride 109 H Carbon Dioxide 13.0 L Anion Gap 17.0 H BUN 75 H Creatinine 1.5 H Estimated GFR 35 Random Glucose 131 H Calcium 9.6 Total Bilirubin 0.50 AST 29 ALT 17 Alkaline Phosphatase 70 Troponin T 0.015 H Total Protein 8.9 H Albumin 3.8 L Globulin 5.1 H Albumin/Globulin Ratio 0.7 L TSH 5.58 H Urine Color Urine Appearance Urine pH Ur Specific [place] Urine Protein Urine Glucose (UA) Urine Ketones Urine Blood Urine Nitrite Urine Bilirubin Urine Urobilinogen Ur Leukocyte Esterase Urine RBC Urine WBC Ur Epithelial Cells Urine Bacteria Urine Mucus 10/26/19 23:40 WBC RBC Hgb Hct MCV MCH MCHC RDW Plt Count MPV Neutrophils % Band Neutrophils % Eosinophils % Basophils % Absolute Neutrophils Lymphocytes Monocytes Metamyelocytes Macrocytosis PT INR APTT Sodium Potassium Chloride Carbon Dioxide Anion Gap BUN Creatinine Estimated GFR Random Glucose Calcium Total Bilirubin AST ALT Alkaline Phosphatase Troponin T Total Protein Albumin Globulin Albumin/Globulin Ratio TSH Urine Color Yellow Urine Appearance Clear Urine pH 5.5 Ur Specific [place] 1.020 Urine Protein Trace H Urine Glucose (UA) Negative Urine Ketones Negative Urine Blood Trace-i Urine Nitrite Negative Urine Bilirubin Negative Urine Urobilinogen 0.2 Ur Leukocyte Esterase Negative Urine RBC 0 - 2 Urine WBC 0 - 2 Ur Epithelial Cells 0 - 2 Urine Bacteria Few Urine Mucus Light VTE H&P Assessment - Risk for VTE Risk for VTE: Yes Risk Level: Moderate Risk Assessment Date: 10/27/19 Risk Assessment Time: 08:05 VTE Orders Placed or Will Be Placed: Yes Plan - Detailed Diagnosis and Plan (1) Dehydration Current Visit: Yes Status: Acute Base Code: E86.0 - DEHYDRATION Comment: 10/27/19 - Likely 2nd GI losses - BUN/Cr 75/1.5--> 59/1.2, last known Cr 1.2 on 07/10/19 and 07/17/19, it appears she is close to her baseline - IV hydration - Repeat labs and trend renal levels - UA negative in ED (2) JAMILA (acute kidney injury) Current Visit: Yes Status: Acute Base Code: N17.9 - ACUTE KIDNEY FAILURE, UNSPECIFIED Comment: 10/27/19 - Bun/Cr 75/1.5 --> 59/1.2, AG 17, troponin 0.015 - K 6.1--> 4.3 - Is diabetic, no known prexisting renal complications - IV hydration, repeat labs (3) Hypothyroidism Current Visit: Yes Status: Acute Base Code: E03.9 - HYPOTHYROIDISM, UNSPECIFIED Comment: 10/27/19 - No previous hx, incidental findings - TSH 5.58 - Will inititate Levothyroixin 25mcg, recheck 6 weeks (4) Diabetes type 2, controlled Current Visit: Yes Status: Acute Qualifiers: Diabetes mellitus shelter insulin use: with shelter use Diabetes mellitus complication status: without complication Qualified Code(s): E11.9 - Type 2 diabetes mellitus without complications; Z79.4 - USP (current) use of insulin Base Code: E11.9 - TYPE 2 DIABETES MELLITUS WITHOUT COMPLICATIONS Comment: 10/27/19 - Random BG in ED <150 - Continue Novolog and Levemir home dosing - No ELIUD/ARB, will query patient (5) Anemia Current Visit: Yes Status: Chronic Base Code: D64.9 - ANEMIA, UNSPECIFIED Comment: 07/20/19: 10/27/19 -Chronic anemia -Hgb 9.9 -->8.8 after hydration (8.5 07/20/19) -Continue Iron 325 BID (6) DNR (do not resuscitate) Current Visit: No Status: Acute Base Code: Z66 - DO NOT RESUSCITATE (7) DVT prophylaxis Current Visit: Yes Status: Acute Base Code: [id number] - Comment: 07/20/19: -High risk due to age and hospitalization -High fall risk -Risk of anticoagulation outweighs benefit -PT/OT ordered -Nursing to encourage frequent ambulation -SCDs while in bed - Allergy to ASA
[2019-10-27 09:00] LABS: ABSOLUTE NEUTROPHIL COUNT 3.27; BASO % 0.4 % (0-6); EOS % 0.6 % (0-6); GRAN % 60.3 % (47-80); HEMOGLOBIN 8.8 gm/dl (11.6-16.0); LYMPH % 27.3 % (16-45); MEAN CELL VOLUME 109.5 fl (81-97); MEAN CORPUSCULAR HEMOGLOBIN 32.1 pg (27-33); MEAN CORPUSCULAR HGB CONC 29.3 g/dl (32-36); MEAN PLATELET VOLUME 10.1 fl (7.4-10.4); MONO % 11.4 % (0-9); PLATELET COUNT 199 K/uL (130-400); RED BLOOD COUNT 2.74 M/uL (3.80-5.40); RED CELL DISTRIBUTION WIDTH 15.2 % (11.5-14.5); WHITE BLOOD COUNT W/O DIFF 5.4 K/uL (4.2-12.2)
[2019-10-27 09:18] LABS: CREATININE 1.2 mg/dL (0.5-0.9)
[2019-10-27] MEDS: NOVOLOG FLEXPEN (INSULIN ASPART) 100 UNITS/ML SQ SCH ×4 (09:45→22:03)
[2019-10-27] MEDS: ESCITALOPRAM 10 MG TABLET PO SCH (10:52)
[2019-10-27] MEDS: FERROUS SULFATE 325 MG TAB PO SCH ×2 (10:52→22:04)
[2019-10-27] MEDS: LEVEMIR FLEXTOUCH 100 UNIT/ML INSULIN PEN SQ SCH ×2 (10:52→22:29)
[2019-10-27] MEDS: 0.9 % SODIUM CHLORIDE 1000ML 1,000 ML IV PRN ×2 (13:13→22:32)
[2019-10-27] MEDS: SIMVASTATIN 20 MG TABLET PO SCH (22:04)
[2019-10-28] MEDS: LORATADINE 10 MG TABLET PO SCH
[2019-10-28 06:22] LABS: ABSOLUTE NEUTROPHIL COUNT 3.38; HEMATOCRIT 27.5 % (35.0-47.0); HEMOGLOBIN 8.2 gm/dl (11.6-16.0); MEAN CELL VOLUME 107.4 fl (81-97); MEAN CORPUSCULAR HGB CONC 29.8 g/dl (32-36); MEAN PLATELET VOLUME 10.4 fl (7.4-10.4); PLATELET COUNT 210 K/uL (130-400); RED BLOOD COUNT 2.56 M/uL (3.80-5.40); RED CELL DISTRIBUTION WIDTH 14.9 % (11.5-14.5); WHITE BLOOD COUNT W/O DIFF 5.4 K/uL (4.2-12.2)
[2019-10-28] MEDS: LEVOTHYROXINE SODIUM 25 MCG TABLET PO SCH (06:49)
[2019-10-28] MEDS: NOVOLOG FLEXPEN (INSULIN ASPART) 100 UNITS/ML SQ SCH ×4 (07:45→21:39)
[2019-10-28] MEDS: FERROUS SULFATE 325 MG TAB PO SCH ×2 (09:41→21:34)
[2019-10-28] MEDS: CYANOCOBALAMIN (VITAMIN B-12) 100 MCG TABLET PO SCH (09:42)
[2019-10-28] MEDS: ESCITALOPRAM 10 MG TABLET PO SCH (09:42)
[2019-10-28] MEDS: ASCORBIC ACID 500 MG TAB PO SCH (09:42)
[2019-10-28] MEDS: LEVEMIR FLEXTOUCH 100 UNIT/ML INSULIN PEN SQ SCH ×2 (09:43→21:40)
[2019-10-28] MEDS: POTASSIUM CHLORIDE 10 MEQ TAB PO SCH (14:15)
[2019-10-28] MEDS: LISINOPRIL 10 MG TABLET PO SCH (14:15)
[2019-10-28] MEDS: FUROSEMIDE 20 MG TABLET PO SCH (14:17)
--- NOTE | 2019-10-28 18:26 | Physician Progress Note ---
Subjective - Date Date of Physician Progress Note: 10/28/19 - Subjective Subjective Comment: Patient continue to have loose stools, going twice a day, does have some form. Patient has very poor appetite and not eating meals as provided stating she does like what she is being served. She is also concerned about going home and does not feel like she is ready. She is unable to give a firm reason as to why she is concerned about going home except she feels [facility] who discharged her from care last week discharged her too soon stating "it's just the way it has always been". She is concerned about "the same old things as before and the time before that". Unable to verbalize specific events that may have occurred. She does state she can walk around the house with walker and SBA of walker. She did complete [facility] at [facility] in June 2019 for frequent falls ( she has not fallen at home since). Patient is also stating she is concerned because her and her daughter have different sleep schedules and feeds her food she does not like, although when asked states she has never told her daughter she does not like what she is being served, stating, her daughter "pretty much know I don't like what she coos". [place] Loan, contacted regaring her mother's usual baseline health and activity. Kim is concerned she has been progressively weak for the past week or so, no fever or cough. Has overall had a poor appetite with blood sugars "low" at home, could not report blood glucose numbers. Also states she can not get her mother in and out of the house and must use [facility] to transport her. Kim is otherwise just as poor historian as patient is regarding home needs, reasons for hesitancy for discharge home. Objective - Vital Signs Vital Signs: Vital Signs - Last 24 Hrs Temp Pulse Resp BP BP Pulse Ox 10/28/19 16:00 97.7 F 77 15 126/70 93 L 10/28/19 14:25 98.1 F 140/82 10/28/19 12:30 98.4 F 84 16 158/72 99 10/28/19 09:00 90 16 10/28/19 07:30 97.8 F 90 16 130/67 98 10/28/19 03:30 98.1 F 84 16 140/82 100 10/27/19 21:49 97.5 F L 80 17 151/72 98 - General General Appearance: Alert, Oriented x3, Cooperative, No acute distress Limitations: No limitations - Head Head exam: Atraumatic, Normocephalic - Eye Eye exam: Normal appearance, PERRL - ENT ENT exam: Mucous membranes moist Throat exam: Normal inspection. negative: Tonsillar erythema, Tonsillar exudate - Neck Neck exam: Normal inspection, Full ROM. negative: Lymphadenopathy, Meningismus, Tenderness - Respiratory Respiratory exam: Normal lung sounds bilaterally, Other (crackles R base). negative: Respiratory distress - Cardiovascular Cardiovascular Exam: Regular rate, Normal rhythm, Normal heart sounds Peripheral Pulses: 3+: Radial (R), Radial (L) - GI/Abdominal GI/Abdominal exam: Soft, Normal bowel sounds. negative: Tenderness - Extremities Extremities exam: Normal inspection, Full ROM, Normal capillary refill. negative: Pedal edema, Tenderness - Neurological Neurological exam: Alert. negative: Motor sensory deficit - Skin Skin exam: negative: Rash Assessment and Plan - Assessment and Plan (1) Dehydration Current Visit: Yes Status: Acute Base Code: E86.0 - DEHYDRATION Comment: 10/28/19 - Likely 2nd GI losses - BUN/Cr 75/1.5--> 59/1.2-->44/1.0, last known Cr 1.2 on 07/10/19 and 07/17/19, it appears she is close to her baseline - SL, she has developed slight crackles right base. - Resume Lasix 20mg QD and Potassium supplementation - UA negative in ED (2) JAMILA (acute kidney injury) Current Visit: Yes Status: Acute Base Code: N17.9 - ACUTE KIDNEY FAILURE, UN SPECIFIED Comment: 10/28/19 - Bun/Cr 75/1.5 --> 59/1.2-->44/1.0, AG 17, troponin 0.015 - K 6.1--> 4.3 - Is diabetic, no known prexisting renal complications - Kidneys have returned to baseline function (3) Hypothyroidism Current Visit: Yes Status: Acute Base Code: E03.9 - HYPOTHYROIDISM, UNSPECIFIED Comment: 10/28/19 - No previous hx, incidental findings - TSH 5.58 - Will inititate Levothyroxine 25mcg, recheck 6 weeks (4) Diabetes type 2, controlled Current Visit: Yes Status: Acute Qualifiers: Diabetes mellitus retirement insulin use: with retirement use Diabetes mellitus complication status: without complication Qualified Code(s): E11.9 - Type 2 diabetes mellitus without complications; Z79.4 - correction (current) use of insulin Base Code: E11.9 - TYPE 2 DIABETES MELLITUS WITHOUT COMPLICATIONS Comment: 10/27/19 - Random BG in ED <150 - BG 108-234 - Has had poor appetite here and at home, dietary consult - Continue Novolog and Levemir home dosing - ELIUD inhibitor initiated, no renal contraindications (5) Anemia Current Visit: Yes Status: Chronic Base Code: D64.9 - ANEMIA, UNSPECIFIED Comment: 10/28/19 -Chronic anemia -Hgb 9.9 -->8.8 after hydration-->8.2 (8.5 07/20/19). SHe is at her baseline - MCV 107.4, add B-12 supplement -Continue Iron 325 BID, add Vitamin C - Follow up with PCP as outpatient (6) CHF (congestive heart failure) Current Visit: Yes Status: Acute Base Code: I50.9 - HEART FAILURE, UNSPECIFI ED Comment: 10/28/19 - No edema, no dyspnea or cough - Lasix 20mg PO QD resumed today (held due to dehydration and JAMILA) - ELIUD initated today, patient was recently taken off BB by PCP due to "puffiness" - Telemetry- NSR - Echo 12/04/18- EF 60-65%, grade 1 diastolic dysfunction, normal pulmonary pressure - 2L fluid restriction (7) Weakness Current Visit: No Status: Acute Base Code: R53.1 - WEAKNESS Comment: 10/28/19 -UA negative -Hgb and kidney function at baseline -Recently DC home from [facility] and discharged from [facility] last week - Patient and daugher do not feel she is physically ready for discharge home -PT/OT to evaluate - Family meeting tomorrw with myself, case management, patient and daughter due to concerns of discharge home, communitation barriers between daughter and patient, plan for physical oversight and meal planning - Patient is medicaly ready for discharge and will discharge home tomrrow after discharge plan is solid and in place (8) DNR (do not resuscitate) Current Visit: No Status: Acute Base Code: Z66 - DO NOT RESUSCITATE (9) DVT prophylaxis Current Visit: Yes Status: Acute Base Code: [id number] - Comment: 10/28/19 -High risk due to age and hospitalization -High fall risk -Risk of anticoagulation outweighs benefit -PT/OT ordered -Nursing to encourage frequent ambulation -SCDs while in bed - Allergy to ASA Results - Labs Result Diagrams: 10/28/19 06:15 10/28/19 06:15 Labs Last 24 Hours: Laboratory Results - last 24 hr 10/27/19 10/28/19 10/28/19 22:00 06:15 06:15 WBC 5.4 RBC 2.56 L Hgb 8.2 L Hct 27.5 L MCV 107.4 H MCH 32.0 MCHC 29.8 L RDW 14.9 H Plt Count 210 MPV 10.4 Neutrophils % 59.0 Band Neutrophils % 2.0 Eosinophils % Not Reportable Basophils % Not Reportable Absolute Neutrophils 3.38 Lymphocytes 21.0 Monocytes 16.0 H Eosinophil Count 2.0 Sodium 140 Potassium 4.3 Chloride 110 H Carbon Dioxide 17.0 L Anion Gap 13.0 BUN 44 H Creatinine 1.0 H Estimated GFR 56 POC Glucose 133 H Random Glucose 111 H Calcium 8.6 L 10/28/19 10/28/19 10/28/19 06:45 11:21 11:22 WBC RBC Hgb Hct MCV MCH MCHC RDW Plt Count MPV Neutrophils % Band Neutrophils % Eosinophils % Basophils % Absolute Neutrophils Lymphocytes Monocytes Eosinophil Count Sodium Potassium Chloride Carbon Dioxide Anion Gap BUN Creatinine Estimated GFR POC Glucose 108 Cancelled 208 H Random Glucose Calcium DVT/PE Assessment - Risk for VTE Risk for VTE: No Risk Level: Moderate Risk Assessment Date: 10/27/19 Risk Assessment Time: 08:05 VTE Orders Placed or Will Be Placed: Yes - Active Medicaitons Current Medications: Current Medications Acetaminophen (Tylenol 325mg) 650 mg PO Q6H PRN PRN Reason: PAIN - MILD(1-4)/FEVER Ascorbic Acid (Vitamin C) 1,000 mg PO DAILY [facility] Last Admin: 10/28/19 09:42 Dose: 1,000 mg Documented by: Cyanocobalamin (Vitamin B-12) 100 mcg PO DAILY [facility] Last Admin: 10/28/19 09:42 Dose: 100 mcg Documented by: Escitalopram Oxalate (Lexapro) 10 mg PO DAILY [facility] Last Admin: 10/28/19 09:42 Dose: 10 mg Documented by: Ferrous Sulfate (Iron) 325 mg PO BID [facility] Last Admin: 10/28/19 09:41 Dose: 325 mg Documented by: Furosemide (Lasix) 20 mg PO DAILY [facility] Last Admin: 10/28/19 14:17 Dose: 20 mg Documented by: Insulin Aspart (Novolog Flexpen) 1 unit SQ 0800,1200,1730,2200 [facility] Last Admin: 10/28/19 17:40 Dose: Not Given Documented by: Insulin Detemir (Levemir Flextouch) 25 unit SQ BID [facility] Last Admin: 10/28/19 09:43 Dose: 25 unit Documented by: Levothyroxine Sodium (Synthroid) 25 mcg PO DAILYTHY [facility] Last Admin: 10/28/19 06:49 Dose: 25 mcg Documented by: Lisinopril (Zestril) 10 mg PO DAILY [facility] Last Admin: 10/28/19 14:15 Dose: 10 mg Documented by: Loratadine (Claritin) 10 mg PO QD [facility] Last Admin: 10/28/19 00:00 Dose: Not Given Documented by: Potassium Chloride (Klor-Con) 10 meq PO DAILY [facility] Last Admin: 10/28/19 14:15 Dose: 10 meq Documented by: Simvastatin (Zocor) 20 mg PO QHS [facility] Last Admin: 10/27/19 22:04 Dose: 20 mg Documented by: Zinc Oxide (Desitin) 28.35 gm TOP BID PRN PRN Reason: Skin Irritation AMI Plan - Labs Result Diagrams: 10/28/19 06:15 10/28/19 06:15
--- NOTE | 2019-10-28 21:09 | RADIOLOGY REPORT ---
EXAMINATION: Two View Chest Radiographs EXAM DATE: 10/28/2019 9:05 PM TECHNIQUE: Frontal and lateral views INDICATION: confusion COMPARISON: 07/17/2019 ENCOUNTER: Not applicable FINDINGS: Cardiomediastinal structures stable. Chronic right lung infiltrate with volume loss and right mediast inal shift. No pneumothorax or pleural effusion. IMPRESSION: No significant interval change Dictated by: Sukhdeep Krueger MD on 10/28/2019 9:06 PM. .
[2019-10-28] MEDS: SIMVASTATIN 20 MG TABLET PO SCH (21:34)
[2019-10-29] MEDS: LORATADINE 10 MG TABLET PO SCH (01:27)
[2019-10-29] MEDS: LEVOTHYROXINE SODIUM 25 MCG TABLET PO SCH (06:04)
[2019-10-29 06:39] LABS: ABSOLUTE NEUTROPHIL COUNT 3.33; HEMATOCRIT 29.2 % (35.0-47.0); MEAN CELL VOLUME 106.6 fl (81-97); MEAN CORPUSCULAR HEMOGLOBIN 32.8 pg (27-33); MEAN CORPUSCULAR HGB CONC 30.8 g/dl (32-36); MEAN PLATELET VOLUME 10.7 fl (7.4-10.4); PLATELET COUNT 184 K/uL (130-400); RED BLOOD COUNT 2.74 M/uL (3.80-5.40); RED CELL DISTRIBUTION WIDTH 14.9 % (11.5-14.5); WHITE BLOOD COUNT W/O DIFF 5.7 K/uL (4.2-12.2)
[2019-10-29] MEDS: NOVOLOG FLEXPEN (INSULIN ASPART) 100 UNITS/ML SQ SCH ×2 (08:38→13:40)
[2019-10-29] MEDS ORDERED: LORATADINE 10 MG TABLET PO SCH (10:00)
--- NOTE | 2019-10-29 10:07 | Rehab Evaluation ---
Patient Information - Patient Information Diagnosis: Dehydration, acute kidney failure Ordered Treatment: PT Evaluate and Treat Status: Initial Evaluation Past Medical/Surgical Hx: PAST MEDICAL/SURGICAL HISTORY Past Surgical History skin on face, arms, back for skin cancer bilateral cataracts PMH - Respiratory Hx Respiratory Disorders Yes Hx Pneumonia Yes PMH - Cardiovascular Hx Cardiovascular Disorders Yes Hx Congestive Heart Failure Yes Hx Hypertension Yes Hx Irregular Heartbeat Yes Hx Transient Ischemic Attacks Yes (TIA) Comment: high cholesterol PMH - Neuro Hx Neurological Disorders No Hx Cerebrovascular Accident Yes: 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) PMH - GI Hx Gastrointestinal Disorders Yes Comment: currently has external hemmorhoid with intermittent bleeding PMH - Hx Genitourinary Disorders Yes Hx Renal Disease Yes: CKD Hx Urinary Tract Infection Yes PMH - Endocrine Hx Endocrine Disorders Yes Hx Diabetes Yes: IDDM type 2 Hx Thyroid Disease No PMH - Musculoskeletal Hx Musculoskeletal Disorders No Hx Arthritis Yes PMH - Psych Hx Psychiatric Problems Yes Hx Depression Yes: taking Lexapro PMH - Hematology/Oncology Hx Hematology/Oncology Yes Disorders Hx Anemia Yes Hx Bruising Yes Hx Cancer Yes: skin Hx Chemotherapy No Hx Radiation Therapy No Premorbid Status: Detail (The patient ambulates household distances with front wheeled walker per her report. The patient has home healthaides who assist with her shower 2 times a week. The patient reports she gets dressed independently. The patient's daughter completes all home mangement including meal prep and laundry.) Social History: Detail (The patient lives with daughter in a one story house with a basement with 5-6 steps at the enterance and two railing which are far apart. The bathrooms are equipped with: a walk in shower with a seat, hand held shower head and standard toilet. Grab bars are present by the shower and toilet.) Precautions: [place], Fall - Time With Patient Total Time Spent With Patient (Min): 30 Treatment Procedures: Detail (Initial Evaluation) Subjective Information - Subjective Information Per Patient (The patient had complaints of pain in her bottom level 5-6 using 0- 10 pain scale.) Objective Data - Mental Status Patient Orientation: Oriented x3 - ROM Within normal limits (The patient's LE AROM is WNL.) - Strength/Tone Not within normal limits (The patient's LE strength is as follows: hip flexors L 3+/5, R 4-/5, hip abductors, adductors bilaterally R 4-/5, L 4/5, knee extensors bilaterally 4+/5, knee flexors R 4-/5, L 4+/5, ankle musculature L 4+/5, R 3+/5.) - Bed Mobility Independent (The patient was independent with use of bed railing with supine to sit and scooting to the edge of the bed.) - Transfers Needs Assist (Minimal PA of one with sit to stand from the bed. The patient was independent with stand to sit.) - Balance Balance Sitting: Good Balance Standing: Fair (The patient was able to stand unsupported with a wide base of support when pulling up pant however she required CG due to LOB.) - Gait Detail (The patient ambulated with front wheeled walker with CG/supervision for safety 20 feet x 1, 7 feet x 1. The patient was short of breath after ambulating. The patient's gait pattern was characterized by occasional foot drag on the R LE and decreased stride length bilaterally ( short shuffling steps).) Therapy Assessment - Therapy Assessment Detail (The patient exhibits decreased LE strength and decreased ability to complete prolongeed physical activity. The patient required minimal PA with sit to stand. The patient stated she had PT at home and felt it help but stated it was hard to do the exercises. The patient would benefit from short term PT to increase LE strength and ability to complete prolonged physical activity. Home Health Aides and daughter may benefit from education to complete LE strengthening HEP with pt. and encourage to walk at home.) Problem List - Problem List Physical Therapy Problem List: Detail (1) Decreased LE strength 2) Assistance with sit to stand 3) shortness of breath with ambulation 4) Decreased ability to complete prolonged physical activity) Goals - Goals Physical Therapy Goals: 1) Increase LE strength 1/3 muscle grade to increase stability of gait. 2) The patient will ambulate independently household distances with minimal shortness of breath. 3) The patient will tolerate 20 to 30 minutes of physical activity with one rest period. Prognosis - Prognosis Good Plan - Plan Physical Therapy Plan: PT 1 time a day for gait training, transfer training , LE strengthening exercises.
[2019-10-29] MEDS: POTASSIUM CHLORIDE 10 MEQ TAB PO SCH (10:27)
[2019-10-29] MEDS: ESCITALOPRAM 10 MG TABLET PO SCH (10:27)
[2019-10-29] MEDS: LISINOPRIL 10 MG TABLET PO SCH (10:27)
[2019-10-29] MEDS: FERROUS SULFATE 325 MG TAB PO SCH (10:27)
[2019-10-29] MEDS: FUROSEMIDE 20 MG TABLET PO SCH (10:27)
[2019-10-29] MEDS: CYANOCOBALAMIN (VITAMIN B-12) 100 MCG TABLET PO SCH (10:27)
[2019-10-29] MEDS: ASCORBIC ACID 500 MG TAB PO SCH (10:27)
[2019-10-29] MEDS: LEVEMIR FLEXTOUCH 100 UNIT/ML INSULIN PEN SQ SCH (10:28)
--- NOTE | 2019-10-29 11:17 | Discharge Summary ---
Providers Discharge Summary Date: 10/29/19 Date of admission: 10/27/19 00:32 Expected Date of Discharge: 10/29/19 Attending physician: AMBER ENRIQUEZ Consults: Consult Orders 10/27/19 07:59 Consult - Case Management NOW Comment: Reason For Exam: Needs ramp, transporation needs Physical Exam - Vital Signs Vital Signs: Vital Signs - Last 24 Hrs Temp Pulse Resp BP BP Pulse Ox 10/29/19 09:00 92 H 18 10/29/19 05:00 98.2 F 90 18 139/71 99 10/28/19 21:00 98.1 F 90 18 141/74 97 10/28/19 16:00 97.7 F 77 15 126/70 93 L 10/28/19 14:25 98.1 F 140/82 10/28/19 12:30 98.4 F 84 16 158/72 99 - General General Appearance: Alert, Oriented x3, Cooperative, No acute distress Limitations: No limitations - Head Head exam: Atraumatic, Normocephalic - Eye Eye exam: Normal appearance, PERRL - ENT ENT exam: Mucous membranes moist Throat exam: Normal inspection. negative: Tonsillar erythema, Tonsillar exudate - Neck Neck exam: Normal inspection, Full ROM. negative: Lymphadenopathy, Meningismus, Tenderness - Respiratory Respiratory exam: Normal lung sounds bilaterally, Other (crackles R base). negative: Respiratory distress - Cardiovascular Cardiovascular Exam: Regular rate, Normal rhythm, Normal heart sounds Peripheral Pulses: 3+: Radial (R), Radial (L) - GI/Abdominal GI/Abdominal exam: Soft, Normal bowel sounds. negative: Tenderness - Extremities Extremities exam: Normal inspection, Full ROM, Normal capillary refill. negative: Pedal edema, Tenderness - Neurological Neurological exam: Alert. negative: Motor sensory deficit - Skin Skin exam: negative: Rash Hospitalization - Hospitalization Admission Diagnosis: 1. Acute Dehydration with Renal Failure. - Problem List/Discharge Diagnosis (1) Dehydration Current Visit: Yes Status: Acute Base Code: E86.0 - DEHYDRATION Comment: 10/29/19 - Likely 2nd GI losses - BUN/Cr 75/1.5--> 59/1.2-->44/1.0-->37/1.0 - Last known Cr 1.2 on 07/10/19 and 07/17/19, it appears she is close to her baseline - SL, she has developed slight crackles right base, does have persistent righ lung pleural effusion that has not changed. CXR and CT chest continue to demonstrate chronic and stable fibrosis and right pleural thickening dating back 08/25/[address] Lasix 20mg QD and Potassium supplementation - UA negative in ED, awaiting urine culture - Dehydration has significantly improved and is ready for discharge today after family meeting (2) JAMILA (acute kidney injury) Current Visit: Yes Status: Acute Base Code: N17.9 - ACUTE KIDNEY FAILURE, UNSPECIFIED Comment: 10/29/19 - Bun/Cr 37/1.0 - K 6.1--> 4.3 - Is diabetic, no known prexisting renal complications - Kidneys have returned to baseline function (3) Hypothyroidism Current Visit: Yes Status: Acute Base Code: E03.9 - HYPOTHYROIDISM, UNSPECIFIED Comment: 10/29/19 - No previous hx, incidental findings - TSH 5.58 - Will inititate Levothyroxine 25mcg, recheck 6 weeks (4) Diabetes type 2, controlled Current Visit: Yes Status: Acute Discharge Diagnosis: Diabetes mellitus assisted insulin use: with assisted use Diabetes mellitus complication status: without complication Qualified Code(s): E11.9 - Type 2 diabetes mellitus without complications; Z79.4 - exterminator termite (current) use of insulin Base Code: E11.9 - TYPE 2 DIABETES MELLITUS WITHOUT COMPLICATIONS Comment: 10/27/19 - Random BG in ED <150 - BG 108-234 - Has had poor appetite here and at home, dietary consult for food preferences, did eat all of her breakfast his am - Continue Novolog and Levemir home dosing - ELIUD inhibitor initiated, no renal contraindications (5) Anemia Current Visit: Yes Status: Chronic Base Code: D64.9 - ANEMIA, UNSPECIFIED Comment: 10/29/19 -Chronic anemia -Hgb 9.0 She is at her baseline - MCV 107.4, add B-12 supplement -Continue Iron 325 BID, add Vitamin C - Follow up with PCP as outpatient (6) CHF (congestive heart failure) Current Visit: Yes Status: Acute Base Code: I50.9 - HEART FAILURE, UNSPECIFIED Comment: 10/29/19 - No edema, no dyspnea or cough - Lasix 20mg PO QD resumed (held due to dehydration and JAMILA) - ELIUD initated, patient was recently taken off BB by PCP due to "puffiness" - Telemetry- NSR - Echo 12/04/18- EF 60-65%, grade 1 diastolic dysfunction, normal pulmonary pressure - 2L fluid restriction (7) Weakness Current Visit: No Status: Acute Base Code: R53.1 - WEAKNESS Comment: 10/29/19 -UA negative -Hgb and kidney function at baseline -Recently DC home from [facility] and discharged from [facility] last week - Patient and daugher do not feel she is physically ready for discharge home -PT/OT to evaluate - Family meeting tomorrw with myself, case management, patient and daughter due to concerns of discharge home, communitation barriers between daughter and patient, plan for physical oversight and meal planning - Patient is medicaly ready for discharge and will discharge home tomrrow after discharge plan is solid and in place - PT/OT evaluated and recommend daily PT/OT. Will speak with patient regarding discharge to [facility] today. Case management in involved (8) DNR (do not resuscitate) Current Visit: No Status: Acute Base Code: Z66 - DO NOT RESUSCITATE (9) DVT prophylaxis Current Visit: Yes Status: Acute Base Code: [id number] - Comment: 10/29/19 -High risk due to age and hospitalization -High fall risk -Risk of anticoagulation outweighs benefit -PT/OT ordered -Nursing to encourage frequent ambulation -SCDs while in bed - Allergy to ASA - Hospitalization Course Disposition: Intermediate Facility Hospital Course: The patient is here with her daughter due to generalized weakness at home for the past 2-3 days. She has had some loose stools and fatigue with a slightly decreased appetite. The patient has a long hx of similar issues. The patient has had no fever, chills, dysuria, Cp, SOB, BAILEY or LOTT's. The daughter also denies any recent falls or any trauma or injury. ED work up consistent with dehydration likely 2nd GI losses and JAMILA. Baseline renal function unknown at this time. PCP: Significant ED findings: EKG- NSR, unchanged from previous - K 6.1 - AG 17 - BUN/Cr 75/1.5 - Troponin 0.015 - UA unremarkable - Hgb 9.9, MCV 109.6 - TSH 5.58 PAST MEDICAL/SURGICAL HISTORY Past Surgical History skin on face, arms, back for skin cancer bilateral cataracts PMH - Respiratory Hx Respiratory Disorders Yes Hx Pneumonia Yes PMH - Cardiovascular Hx Cardiovascular Disorders Yes Hx Congestive Heart Failure Yes Hx Hypertension Yes Hx Irregular Heartbeat Yes Hx Transient Ischemic Attacks Yes (TIA) Comment: high cholesterol PMH - Neuro Hx Neurological Disorders No Hx Cerebrovascular Accident Yes: 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) PMH - GI Hx Gastrointestinal Disorders Yes Comment: currently has external hemmorhoid with intermittent bleeding PMH - Hx Genitourinary Disorders Yes Hx Renal Disease Yes: CKD Hx Urinary Tract Infection Yes PMH - Endocrine Hx Endocrine Disorders Yes Hx Diabetes Yes: IDDM type 2 Hx Thyroid Disease No PMH - Musculoskeletal Hx Musculoskeletal Disorders No Hx Arthritis Yes PMH - Psych Hx Psychiatric Problems Yes Hx Depression Yes: taking Lexapro PMH - Hematology/Oncology Hx Hematology/Oncology Yes Disorders Hx Anemia Yes Hx Bruising Yes Hx Cancer Yes: skin Hx Chemotherapy No Hx Radiation Therapy No Laboratory Results WBC 7.1 K/uL (4.2-12.2) 10/26/19 23:00 RBC 3.03 M/uL (3.80-5.40) L 10/26/19 23:00 Hgb 9.9 gm/dl (11.6-16.0) L 10/26/19 23:00 Hct 33.2 % (35.0-47.0) L 10/26/19 23:00 MCV 109.6 fl (81-97) H 10/26/19 23:00 MCH 32.6 pg (27-33) 10/26/19 23:00 MCHC 29.8 g/dl (32-36) L 10/26/19 23:00 RDW 15.6 % (11.5-14.5) H 10/26/19 23:00 Plt Count 222 K/uL (130-400) 10/26/19 23:00 MPV 10.6 fl (7.4-10.4) H 10/26/19 23:00 Neutrophils % 50.0 % (47-80) 10/26/19 23:00 Band Neutrophils % 2.0 % (0-5) 10/26/19 23:00 Eosinophils % Not Reportable 10/26/19 23:00 Basophils % Not Reportable 10/26/19 23:00 Absolute Neutrophils 3.88 10/26/19 23:00 Lymphocytes 37.0 % (16-45) 10/26/19 23:00 Monocytes 10.0 % (0-9) H 10/26/19 23:00 Metamyelocytes 1.0 % 10/26/19 23:00 Macrocytosis 1+ 10/26/19 23:00 PT Cancelled 10/26/19 22:59 INR Cancelled 10/26/19 22:59 APTT Cancelled 10/26/19 22:59 Sodium 139 mmol/L (136-145) 10/26/19 23:00 Potassium 6.1 mmol/L (3.4-4.5) H* 10/26/19 23:00 Chloride 109 mmol/L (98-107) H 10/26/19 23:00 Carbon Dioxide 13.0 mmol/L (22-29) L 10/26/19 23:00 Anion Gap 17.0 (7-16) H 10/26/19 23:00 BUN 75 mg/dL (8-23) H 10/26/19 23:00 Creatinine 1.5 mg/dL (0.5-0.9) H 10/26/19 23:00 Estimated GFR 35 mL/min 10/26/19 23:00 Random Glucose 131 mg/dL (74-109) H 10/26/19 23:00 Calcium 9.6 mg/dL (8.8-10.2) 10/26/19 23:00 Total Bilirubin 0.50 mg/dL (0.2-1.0) 10/26/19 23:00 AST 29 U/L (10.0-35.0) 10/26/19 23:00 ALT 17 U/L (<33) 10/26/19 23:00 Alkaline Phosphatase 70 U/L (35-104) 10/26/19 23:00 Troponin T 0.015 ng/mL (0-0.010) H 10/26/19 23:00 Total Protein 8.9 g/dL (6.6-8.7) H 10/26/19 23:00 Albumin 3.8 g/dL (4.0-5.0) L 10/26/19 23:00 Globulin 5.1 gm/dL (1.4-4.8) H 10/26/19 23:00 Albumin/Globulin Ratio 0.7 (1.1-1.8) L 10/26/19 23:00 TSH 5.58 uIU/mL (0.270-4.20) H 10/26/19 23:00 Urine Color Yellow 10/26/19 23:40 Urine Appearance Clear 10/26/19 23:40 Urine pH 5.5 (5.0-8.0) 10/26/19 23:40 Ur Specific [place] 1.020 (1.002-1.030) 10/26/19 23:40 Urine Protein Trace (NEGATIVE) H 10/26/19 23:40 Urine Glucose (UA) Negative (NEGATIVE) 10/26/19 23:40 Urine Ketones Negative (NEGATIVE) 10/26/19 23:40 Urine Blood Trace-i (NEGATIVE) 10/26/19 23:40 Urine Nitrite Negative (NEGATIVE) 10/26/19 23:40 Urine Bilirubin Negative (NEGATIVE) 10/26/19 23:40 Urine Urobilinogen 0.2 E.U./dL (0.20 - 1.00) 10/26/19 23:40 Ur Leukocyte Esterase Negative (NEGATIVE) 10/26/19 23:40 Urine RBC 0 - 2 (NONE SEEN) 10/26/19 23:40 Urine WBC 0 - 2 (0-2/hpf) 10/26/19 23:40 Ur Epithelial Cells 0 - 2 (FEW) 10/26/19 23:40 Urine Bacteria Few 10/26/19 23:40 Urine Mucus Light 10/26/19 23:40 Vital Signs - Last 24 Hrs Temp Pulse Pulse Resp BP BP Pulse Ox 10/27/19 08:00 97.5 F L 79 15 149/72 98 10/27/19 06:28 97.4 F L 80 17 161/84 98 10/27/19 00:40 97.4 F L 82 14 134/106 99 10/26/19 22:44 97.8 F 87 20 130/73 99 10/29/19- Hospital course slightly prolonged due to discharge planning. She was admitted for dehydration and JAMILA which have resolved with her renal function returning to her baseline. Etiology ikely 2nd GI losses and poor PO intake at home. Her Lasix was resumed 48 hours ago. She has had crackles in right lung base. CXR and CT chest continue to demonstrate chronic and stable fibrosis and right pleural thickening dating back 08/25/[address] There was concern with discharge home back to daughter, carol Lorenzo due to concerns of communication barriers between daughter and patient, ability for physical oversight, meal planning, and ability for daughter to continue to take care of her daily needs. Daughter is hesitant of preparing meat for patient as she is a vegetarian. Daughter was advised patient requires a well-rounded diet due to her age and diabetesw. PT/OT did eval patient on day of discharge and recommended daily PT/OT to increase strength and gait stability. Patient does report feeling better today and did eat all of her breakfast in which she was happy with. Discharge to [facility] today. Procedures: Imaging and X-Rays 10/28/19 18:59 CHEST 2 VIEWS [RAD] Stat Cardiology Procedures 10/26/19 22:59 EKG NOW 10/27/19 00:39 Outsole Caser .Continuous Abnormal Labs: Abnormal Lab Results 10/26/19 10/26/19 10/26/19 Range/Units 23:00 23:00 23:40 RBC 3.03 L (3.80-5.40) M/uL Hgb 9.9 L (11.6-16.0) gm/dl Hct 33.2 L (35.0-47.0) % MCV 109.6 H (81-97) fl MCHC 29.8 L (32-36) g/dl RDW 15.6 H (11.5-14.5) % MPV 10.6 H (7.4-10.4) fl Monocytes % (0-9) % Monocytes 10.0 H (0-9) % Potassium 6.1 H* (3.4-4.5) mmol/L Chloride 109 H (98-107) mmol/L Carbon Dioxide 13.0 L (22-29) mmol/L Anion Gap 17.0 H (7-16) BUN 75 H (8-23) mg/dL Creatinine 1.5 H (0.5-0.9) mg/dL POC Glucose (70-110) mg/dL Random Glucose 131 H (74-109) mg/dL Calcium (8.8-10.2) mg/dL Troponin T 0.015 H (0-0.010) ng/mL Total Protein 8.9 H (6.6-8.7) g/dL Albumin 3.8 L (4.0-5.0) g/dL Globulin 5.1 H (1.4-4.8) gm/dL Albumin/Globulin Ratio 0.7 L (1.1-1.8) TSH 5.58 H (0.270-4.20) uIU/mL Urine Protein Trace H (NEGATIVE) 10/27/19 10/27/19 10/27/19 Range/Units 08:52 08:55 12:15 RBC 2.74 L (3.80-5.40) M/uL Hgb 8.8 L (11.6-16.0) gm/dl Hct 30.0 L (35.0-47.0) % MCV 109.5 H (81-97) fl MCHC 29.3 L (32-36) g/dl RDW 15.2 H (11.5-14.5) % MPV (7.4-10.4) fl Monocytes % 11.4 H (0-9) % Monocytes (0-9) % Potassium (3.4-4.5) mmol/L Chloride 110 H (98-107) mmol/L Carbon Dioxide 16.0 L (22-29) mmol/L Anion Gap (7-16) BUN 59 H (8-23) mg/dL Creatinine 1.2 H (0.5-0.9) mg/dL POC Glucose 124 H (70-110) mg/dL Random Glucose 122 H (74-109) mg/dL Calcium 8.7 L (8.8-10.2) mg/dL Troponin T (0-0.010) ng/mL Total Protein (6.6-8.7) g/dL Albumin (4.0-5.0) g/dL Globulin (1.4-4.8) gm/dL Albumin/Globulin Ratio (1.1-1.8) TSH (0.270-4.20) uIU/mL Urine Protein (NEGATIVE) 10/27/19 10/27/19 10/28/19 Range/Units 16:54 22:00 06:15 RBC 2.56 L (3.80-5.40) M/uL Hgb 8.2 L (11.6-16.0) gm/dl Hct 27.5 L (35.0-47.0) % MCV 107.4 H (81-97) fl MCHC 29.8 L (32-36) g/dl RDW 14.9 H (11.5-14.5) % MPV (7.4-10.4) fl Monocytes % (0-9) % Monocytes 16.0 H (0-9) % Potassium (3.4-4.5) mmol/L Chloride (98-107) mmol/L Carbon Dioxide (22-29) mmol/L Anion Gap (7-16) BUN (8-23) mg/dL Creatinine (0.5-0.9) mg/dL POC Glucose 234 H 133 H (70-110) mg/dL Random Glucose (74-109) mg/dL Calcium (8.8-10.2) mg/dL Troponin T (0-0.010) ng/mL Total Protein (6.6-8.7) g/dL Albumin (4.0-5.0) g/dL Globulin (1.4-4.8) gm/dL Albumin/Globulin Ratio (1.1-1.8) TSH (0.270-4.20) uIU/mL Urine Protein (NEGATIVE) 10/28/19 10/28/19 10/28/19 Range/Units 06:15 11:22 17:39 RBC (3.80-5.40) M/uL Hgb (11.6-16.0) gm/dl Hct (35.0-47.0) % MCV (81-97) fl MCHC (32-36) g/dl RDW (11.5-14.5) % MPV (7.4-10.4) fl Monocytes % (0-9) % Monocytes (0-9) % Potassium (3.4-4.5) mmol/L Chloride 110 H (98-107) mmol/L Carbon Dioxide 17.0 L (22-29) mmol/L Anion Gap (7-16) BUN 44 H (8-23) mg/dL Creatinine 1.0 H (0.5-0.9) mg/dL POC Glucose 208 H 184 H (70-110) mg/dL Random Glucose 111 H (74-109) mg/dL Calcium 8.6 L (8.8-10.2) mg/dL Troponin T (0-0.010) ng/mL Total Protein (6.6-8.7) g/dL Albumin (4.0-5.0) g/dL Globulin (1.4-4.8) gm/dL Albumin/Globulin Ratio (1.1-1.8) TSH (0.270-4.20) uIU/mL Urine Protein (NEGATIVE) 10/29/19 10/29/19 Range/Units 06:25 06:25 RBC 2.74 L (3.80-5.40) M/uL Hgb 9.0 L (11.6-16.0) gm/dl Hct 29.2 L (35.0-47.0) % MCV 106.6 H (81-97) fl MCHC 30.8 L (32-36) g/dl RDW 14.9 H (11.5-14.5) % MPV 10.7 H (7.4-10.4) fl Monocytes % (0-9) % Monocytes 13.0 H (0-9) % Potassium (3.4-4.5) mmol/L Chloride 108 H (98-107) mmol/L Carbon Dioxide 18.0 L (22-29) mmol/L Anion Gap (7-16) BUN 37 H (8-23) mg/dL Creatinine 1.0 H (0.5-0.9) mg/dL POC Glucose (70-110) mg/dL Random Glucose (74-109) mg/dL Calcium 8.6 L (8.8-10.2) mg/dL Troponin T (0-0.010) ng/mL Total Protein (6.6-8.7) g/dL Albumin (4.0-5.0) g/dL Globulin (1.4-4.8) gm/dL Albumin/Globulin Ratio (1.1-1.8) TSH (0.270-4.20) uIU/mL Urine Protein (NEGATIVE) Condition at Discharge: (2) Stable Discharge Medications - Discharge Medications Home Medications: Ambulatory Orders Multivitamin/Iron/Folic Acid [Multi Complete-Iron Tablet] 1 tab PO QD tab 03/01/18 [Last Taken 07/17/19] Vitamin B Complex Vit C No.4 [Super B Complex] 150 mg PO QHS tab 03/01/18 [Last Taken 07/17/19] Acetaminophen [Tylenol 325Mg] 650 mg PO Q6H PRN tablet 12/04/18 [Last Taken 07/17/19] Ferrous Sulfate 325 mg PO BID #0 07/10/19 [Last Taken 07/17/19] Glucosamine HCl 1 tab PO DAILY 10/26/19 [Last Taken Unknown] Turmeric 1 tab PO BID 10/26/19 [Last Taken Unknown] Ascorbic Acid [Vitamin C] 1,000 mg PO DAILY tab 10/29/19 [Last Taken Unknown] Cyanocobalamin (Vitamin B-12) [Vitamin B-12] 100 mcg PO DAILY tablet 10/29/19 [Last Taken Unknown] Ferrous Sulfate [Iron] 325 mg PO BID tablet 10/29/19 [Last Taken Unknown] Furosemide [Lasix] 20 mg PO DAILY tablet 10/29/19 [Last Taken Unknown] Levothyroxine Sodium [Synthroid] 25 mcg PO DAILYTHY tab 10/29/19 [Last Taken Unknown] Potassium Chloride [Klor-Con] 10 meq PO DAILY tablet.sa 10/29/19 [Last Taken Unknown] Discharge Plan - Discharge Instructions Activity at Discharge: As Per Physical Therapy Diet at Discharge: Diabetic Diet (2L fluid restriction) Wound Primary Dressing Type: 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 Quality Measures - Quality Measures Quality Measures: Atrial Fibrillation & Atrial Flutter: Chronic Anticoagulation Therapy, Advance Directives, Documentation of Current Medications in Medical Record, Elder Maltreatment Screen and Follow-Up Plan, Heart Failure, Screening for High Blood Pressure and F/U Documented - Current Medications Quality Measure: Measure #130: Documentation of Current Medications Documentation of Current Medications: <Current Medications Documented/Reviewed> [G8429] - Blood Pressure Screening Quality Measure: Screening for High Blood Pressure and Follow-Up Documented Does Patient Have Any of the Following: Active Dx of HTN Blood Pressure Classification: Pre-Hypertensive BP Reading Systolic Measurement: 140 Diastolic Measurement: 82 Screening for High Blood Pressure: Patient Exclusion, Hx of HTN [G9744] - Atrial Fibrillation and Atrial Flutter Quality Measure: Atrial Fibrillation & Atrial Flutter: Chronic Anticoagulation Therapy Does Patient Have Any of the Following: No CHADS2 Risk Stratification: Prior Stroke/TIA or Systemic Embolism, Age 75 or Greater, Hypertension, Diabetes Mellitus, Heart Failure or Impaired LVSF Risk Stratification Summary: One or more high risk factors OR more than one moderate risk factor exists. [G8972] Anticoagulation Therapy: Patient Exclusion [G9746] - Heart Failure (ELIUD/ARB Therapy) Quality Measure: Heart Failure Left Ventricular Systolic Function: Unknown ELIUD Inhibitor or ARB Therapy for LVSD: Not Eligible - Heart Failure (Beta-jerod Therapy) Quality Measure: Heart Failure Left Ventricular Systolic Function: Unknown Beta-Jerod Therapy for LVEF < 40%: Not Eligible - Advance Directives Quality Measure: Measure #47: Care Plan Advance Directives Established: No Advance Directives Information Provided To Patient: Already Provided Advance Directives on File: No Living Will: Yes Power of Dehydrator: Yes Power of Dehydrator Name: Kim Peck [phone] Advance Care Planning: <Care Plan/Decision Maker Documented; Discussed & Documented> [[id number]] - Elder Abuse Suspicion Index Screening: Elder Abuse Suspicion Index Screening Rely on people for bathing, dressing, shopping, banking, etc: Yes Prevented from getting food, clothes, medication, etc: No Made to feel shamed or threatened by someone: No Forced to sign papers or use money against will: No Feel afraid, touched in ways not wanted or hurt physically: No Poor eye contact, withdrawn, malnourished, cuts or bruises: No Screening Result: Negative result EASI Reference Information: Concepcion PLUNEKTT, Florencio C, Heather D, Vicky Sethi.Development and validation of a tool to assist physicians identification of elder abuse: The Elder Abuse Suspicion Index (EASI ). Journal of Elder Abuse and Neglect, 2008; 20 (3): 276-300. - Elder Maltreatment Screen Quality Measures: Elder Maltreatment Screen and Follow-Up Plan Elder Maltreatment Screen: <Negative, No Follow-Up Plan Required> [G5634]
--- NOTE | 2019-10-29 11:52 | Rehab Evaluation ---
Patient Information - Patient Information Diagnosis: acute dehydration with renal failure Ordered Treatment: OT Evaluate and Treat Status: Initial Evaluation Surgery: No Past Medical/Surgical Hx: PAST MEDICAL/SURGICAL HISTORY Past Surgical History skin on face, arms, back for skin cancer bilateral cataracts PMH - Respiratory Hx Respiratory Disorders Yes Hx Pneumonia Yes PMH - Cardiovascular Hx Cardiovascular Disorders Yes Hx Congestive Heart Failure Yes Hx Hypertension Yes Hx Irregular Heartbeat Yes Hx Transient Ischemic Attacks Yes (TIA) Comment: high cholesterol PMH - Neuro Hx Neurological Disorders No Hx Cerebrovascular Accident Yes: 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) PMH - GI Hx Gastrointestinal Disorders Yes Comment: currently has external hemmorhoid with intermittent bleeding PMH - Hx Genitourinary Disorders Yes Hx Renal Disease Yes: CKD Hx Urinary Tract Infection Yes PMH - Endocrine Hx Endocrine Disorders Yes Hx Diabetes Yes: IDDM type 2 Hx Thyroid Disease No PMH - Musculoskeletal Hx Musculoskeletal Disorders No Hx Arthritis Yes PMH - Psych Hx Psychiatric Problems Yes Hx Depression Yes: taking Lexapro PMH - Hematology/Oncology Hx Hematology/Oncology Yes Disorders Hx Anemia Yes Hx Bruising Yes Hx Cancer Yes: skin Hx Chemotherapy No Hx Radiation Therapy No Premorbid Status: Detail (The patient ambulates household distances with front wheeled walker per her report. The patient has home health aides who assist with her shower 2 times a week. The patient reports she gets dressed independently most days but requires assist at times. The patient's daughter completes all home mangement including meal prep, home mgmt and laundry tasks.) Social History: Detail (The patient lives with daughter in a one story house with a basement with 5-6 steps at the entrance and two railing which are far apart. The bathrooms are equipped with: a walk in shower with a seat, hand held shower head and standard toilet. Grab bars are present by the shower and toilet.) Precautions: [place], Fall - Time With Patient Total Time Spent With Patient (Min): 40 Treatment Procedures: Detail (OT eval low complexity) Subjective Information - Subjective Information Per Patient Objective Data - Pain Pain Present: Yes (5-6/10 at rest and 7/10 with activity) - Mental Status Patient Orientation: Oriented x3 - Visual Perception Appears within normal limits for therapeutic activities (Pt wears glasses) - ROM Not within normal limits (Farhan UE AROM grossly WNL with exception of shoulder flexion which is limited to approx. 110 degrees.) - Strength/Tone Not within normal limits (Right shoulder flexion 4-/5, remaining right UE strength 4/5, left UE 4/5 throughout) - Coordination Appears within normal limits for therapeutic activities (Pt reports farhan coordination functional for her level of activity) - Bed Mobility Independent (Ind with supine to sit using hospital bed rails and with moderate difficulty.) - Transfers Needs Assist (Min assist for sit to stand from EOB and toilet heights.) - Balance Balance Sitting: Good Balance Standing: Fair (Pt required min to CG assist for static standing while doffing and donning briefs over hips at toilet.) - Sensation Intact - Gait Detail (Pt ambulating with 2 wheeled walker and CG assist.) - ADL's/IADL's Detail (Pt required total assist for toileting hygiene, pt able to doff briefs Indly and don clean briefs with min assist to start over feet. Pt reports she has been requiring assist for self cares since admission. Pt was very short of breath with activity.) Therapy Assessment - Therapy Assessment Detail (Pt presents with decreased endurance and Ind with self cares and functional mobility.) Problem List - Problem List Physical Therapy Problem List: Detail (1) Decreased LE strength 2) Assistance with sit to stand 3) shortness of breath with ambulation 4) Decreased ability to complete prolonged physical activity) Occupational Therapy Problem List: Detail (1. Decreased endurance needed for safe and Ind ADLs and functional mobility. 2. Decreased Ind with total body dressing.) Goals - Goals Physical Therapy Goals: 1) Increase LE strength 1/3 muscle grade to increase stability of gait. 2) The patient will ambulate independently household distances with minimal shortness of breath. 3) The patient will tolerate 20 to 30 minutes of physical activity with one rest period. Occupational Therapy Goals: 1. Pt will demonstrate improved overall endurance to allow safe and Ind self cares and functional mobility. 2. Pt will be Ind with total body dressing. Prognosis - Prognosis Moderate Plan - Plan Physical Therapy Plan: PT 1 time a day for gait training, transfer training , LE strengthening exercises. Occupational Therapy Plan: OT 2-4 times per week to address endurance and Ind with self cares. Feel patient could benefit from short term rehab to improve her endurance as well as provide family support to enhance her level of Ind with ADLs.
== END 2019-10-29 16:10 ==
LOC: ER 22:43 → OBSVTOIN 10-27 00:32 → MEDSURG 10-27 00:32
PROVIDERS: ADMIT Internal Medicine; ATTEND Internal Medicine
DX: E86.0 Dehydration (principal); N17.9 Acute kidney failure, unspecified; R53.83 Other fatigue; E03.9 Hypothyroidism, unspecified; R19.7 Diarrhea, unspecified; I50.9 Heart failure, unspecified; I10 Essential (primary) hypertension; E11.9 Type 2 diabetes mellitus without complications; Z79.4 Long term (current) use of insulin; E78.00 Pure hypercholesterolemia, unspecified; D64.9 Anemia, unspecified; M19.90 Unspecified osteoarthritis, unspecified site; Z66 Do not resuscitate; Z85.828 Personal history of other malignant neoplasm of skin; Z86.73 Personal history of transient ischemic attack (TIA), and cerebral infarction without residual deficits; K64.4 Residual hemorrhoidal skin tags
CPT/HCPCS: 36416; 71046; 80048; 80053; 81001; 82310; 82948; 84443; 84484; 85025; 85027; 93005; 93010; 99223; 99233; 99239; 99285; J7030